=== PATIENT | female | born 1950 | race Two or more races ===

== ENCOUNTER 2018-07-26 05:43 | Inpatient (IN) | payer MEDICARE, MEDICAID ==
[~2018-07-26] VITALS: Ht 167.6 cm; Wt 91.6 kg
[2018-07-26] MEDS ORDERED: [UNRECOGNIZED DRUG - OTHER] (05:49)
[2018-07-26] MEDS ORDERED: BENAZEPRIL HCL5 MG ORAL (05:49)
[2018-07-26] MEDS ORDERED: AKTOB1 DROP BOTH EYES (05:49)
[2018-07-26 06:00] VITALS: BP 155/78
--- NOTE | 2018-07-26 06:00 | NUR ---
ED Nurse Note: Patient biba from home with complaints of abdominal pain, nausea, vomitting and diarrhea for almost a month.
--- NOTE | 2018-07-26 06:16 | Emergency Room Report ---
History of Present Illness General Chief Complaint: Abdominal Pain Source: Patient (Kian Pink MD) Present Illness HPI Patient is a 68-year-old female brought in by EMS after increased generalized weakness. Patient was noted to have increased vomiting as well as diarrhea for several days. Patient states that she started this approximately 3 weeks ago. She is not currently seeing a doctor but takes medications for hypertension. Patient reportedly had increased pain throughout the bilateral upper abdomen as well as some increased dysuria. She had been having episodes of diarrhea and has been feeling weak all over. She reports having some severe low back pain. She additionally reports having pain to the left shoulder and is have been having some increased difficulty with movements. She reports having some prior history of arthritis.Patient reports having generalized body aches. She states she is been able to ambulate with assistance. (Kian Pink MD) Allergies: Coded Allergies: No Known Allergies (Unverified , 07/26/18) Patient History Past Medical History: see triage record Last Menstrual Period: FRANCESCA Now: No Reviewed Nursing Documentation: PMH: Agreed; PSxH: Agreed (Kian Pink MD) Nursing Documentation-PMH Past Medical History: No History, Except For Hx Hypertension: Yes (Kian Pink MD) Review of Systems All Other Systems: negative except mentioned in HPI (Kian Pink MD) Physical Exam Vital Signs Date Time Temp Pulse Resp B/P (MAP) Pulse Ox O2 Delivery O2 Flow Rate FiO2 07/26/18 05:45 98.4 116 26 155/78 93 Room Air Sp02 EP Interpretation: reviewed, normal General Appearance: normal inspection, alert, GCS 15, moderate distress, thin, Chronically Ill Head: atraumatic ENT: normal ENT inspection, hearing grossly normal, normal voice Neck: normal inspection, supple, no bony tend, limited range of motion Respiratory: normal inspection, lungs clear, normal breath sounds, no respiratory distress, no retraction Cardiovascular #1: regular rate, rhythm, no edema Gastrointestinal: normal inspection, normal bowel sounds, non tender, soft, no guarding, no hernia Genitourinary: no CVA tenderness Musculoskeletal: normal inspection, back normal, decreased range of motion Neurologic: normal inspection, alert, oriented x3, responsive, speech normal, motor weakness Psychiatric: normal inspection, judgement/insight normal, mood/affect normal Skin: normal inspection, normal color, no rash (Kian Pink MD) Medical Decision Making Diagnostic Impression: Primary Impression: UTI (urinary tract infection) Additional Impression: Dehydration ER Course Patient presented for abdominal pain. Differential diagnoses included ischemic bowel, appendicitis, perforated viscus, abdominal aortic aneurysm, inferior myocardial infarction, viral gastroenteritis among others. Because of complexity of patient's case laboratory testing and imaging studies were ordered.Patient was noted to have some generalized weakness and appears to have need for CT imaging. Patient was endorsed to Dr. Mcgrath pending laboratory testing and CT imaging and likely will be admitted to the hospital for further evaluation. (Kian Pink MD) ER Course Elderly patient with abdominal pain for 3 weeks, vomiting diarrhea intermittently, labs show white count 17,000, urine shows signs of infection, given IV Zosyn, will admit to Dr. Ann. Ct showed possible GB dz. Will order US, although patient's pain in lower abdominal, not RUQ. (EFRNE MCGRATH M.D) EKG Diagnostic Results EKG Time: 08:47 EP Interpretation: no stemi Rate: normal Rhythm: NSR ST Segments: no acute changes ASA given to the pt in ED: No (EFREN MCGRATH M.D) Rhythm Strip Diag. Results Rhythm Strip Time: 07:14 EP Interpretation: yes Rate: 93 Rhythm: NSR (EFREN MCGRATH M.D) Last Vital Signs Date Time Temp Pulse Resp B/P (MAP) Pulse Ox O2 Delivery O2 Flow Rate FiO2 07/26/18 05:45 98.4 116 26 155/78 93 Room Air Status: unchanged (Kian Pink MD) Disposition: ADMITTED INPATIENT Condition: Stable Referrals: NOT CHOSEN IPA/,REFERRING (PCP) Kian Pink MD Jul 26, 2018 06:16 EFREN MCGRATH M.D Jul 26, 2018 07:14
[2018-07-26 06:39] VITALS: BP 141/79
--- NOTE | 2018-07-26 06:39 | NUR ---
ED Nurse Note: PAtient had recurrent episodes of desaturation, placed on 2L of O2 via nasal canula. ERMD informed.
--- NOTE | 2018-07-26 06:41 | NUR ---
ED Nurse Note: KUN currently at bedside.
[2018-07-26 06:48] LABS: BASOPHILS % (AUTO) 0.5 % (0.0-2.0); EOSINOPHILS % (AUTO) 0.1 % (0.0-3.0); HEMATOCRIT 30.3 % (37.0-47.0); HEMOGLOBIN 10.3 G/DL (12.0-16.0); LYMPHOCYTES % (AUTO) 7.3 % (20.0-45.0); MEAN CORPUSCULAR VOLUME 82 FL (80-99); MONOCYTES % (AUTO) 7.9 % (1.0-10.0); NEUTROPHILS % (AUTO) 84.3 % (45.0-75.0); PLATELET COUNT 544 K/UL (150-450); RED BLOOD COUNT 3.67 M/UL (4.20-5.40); RED CELL DISTRIBUTION WIDTH 12.4 % (11.6-14.8); WHITE BLOOD COUNT 17.4 K/UL (4.8-10.8)
[2018-07-26 06:49] LABS: APPEARANCE,URINE CLEAR; BILIRUBIN, URINE NEGATIVE (NEGATIVE); GLUCOSE, URINE (UA) NEGATIVE (NEGATIVE); KETONES,URINE 1+ (NEGATIVE); LEUKOCYTE ESTERASE ,URINE 1+ (NEGATIVE); NITRITE,URINE NEGATIVE (NEGATIVE); PH,URINE 6 (4.5-8.0); PROTEIN,URINE 2+ (NEGATIVE); UROBILINOGEN,URINE 1 MG/DL (0.0-1.0)
[2018-07-26 06:53] LABS: COLOR,URINE YELLOW
[2018-07-26 07:03] LABS: ANION GAP 10 mmol/L (5-15); BLOOD UREA NITROGEN 12 mg/dL (7-18); CALCIUM 8.2 MG/DL (8.5-10.1); CARBON DIOXIDE 24 MMOL/L (21-32); CHLORIDE 97 MMOL/L (98-107); CREATININE 1.2 MG/DL (0.55-1.30); POTASSIUM 4.8 MMOL/L (3.5-5.1); SODIUM 131 MMOL/L (136-145)
[2018-07-26 07:14] LABS: ALANINE AMINOTRANSFERASE 95 U/L (12-78); ALBUMIN 1.5 G/DL (3.4-5.0); ALBUMIN/GLOBULIN RATIO 0.3 (1.0-2.7); ALKALINE PHOSPHATASE 438 U/L (46-116); ASPARTATE AMINO TRANSFERASE 85 U/L (15-37); BILIRUBIN,TOTAL 1.1 MG/DL (0.2-1.0)
[2018-07-26] MEDS ORDERED: Piperacillin/Tazobactam 3.375 GM in NS 110 ML IVPB ONE (07:15)
[2018-07-26 07:17] LABS: BILIRUBIN,DIRECT 0.5 MG/DL (0.0-0.3)
--- NOTE | 2018-07-26 07:40 | NUR ---
ED Nurse Note: Assisted pt on a bed side commode. Informed pt that we are still waiting for the CT abdomen to be done. VSS.
[2018-07-26 08:40] VITALS: BP 136/62
--- NOTE | 2018-07-26 08:50 | NUR ---
ED Nurse Note: Pt taken to CT.
--- NOTE | 2018-07-26 09:00 | NUR ---
ED Nurse Note: Pt back from CT.
--- NOTE | 2018-07-26 09:15 | Diagnostic Imaging Report ---
Indication: Abdominal pain, vomiting, diarrhea Technique: Spiral acquisitions obtained through the abdomen and pelvis. No oral contrast utilized, per emergency room physician request No IV contrast utilized, per emergency room physician request.. Multiplanar reconstructions were generated. Total dose length product 888.46 mGycm. CTDIvol(s) 17.73 mGy. Dose reduction achieved using automated exposure control Comparison: None Findings: Lack of enteric contrast limits assessment of the GI tract. There are colonic diverticula. The appendix is not visualized, but no findings to suggest acute appendicitis are evident. There is nonspecific mild thickening of Gerota's fascia bilaterally, particularly on the left in the upper retroperitoneum. No small bowel distention. There is trace free intraperitoneal fluid seen in the pelvis. No intraperitoneal gas demonstrated. The stomach, duodenum, and distal esophagus are unremarkable. Lack of IV contrast limits assessment of the solid organs. Multiple faint and somewhat ill-defined masses are seen within the liver. Most of these demonstrate fluid attenuation, but there may be some soft tissue attenuation mass is present as well. The gallbladder is nondistended. The gallbladder wall appears somewhat edematous, however. No definite gallstones. No biliary ductal dilatation. Pancreatic head is bulky without definite discrete mass. There is suggestion of a small duodenal diverticulum.. The spleen demonstrates a 2.9 cm diameter low-attenuation lesion in the upper pole which demonstrates equivocal fluid attenuation. The spleen is mildly enlarged, measuring 13.1 cm long axis dimension. The right adrenal is unremarkable. The left adrenal is bulky without discrete mass. The right kidney is unremarkable. Left kidney demonstrates a 4.6 cm upper pole cyst. No pelvic mass or adenopathy. No retroperitoneal or mesenteric mass or adenopathy. The uterus demonstrates a few small calcifications. No definite adnexal mass. Atelectatic changes are seen at the lung bases. There is trace bilateral pleural fluid. The bones demonstrate degenerative spondylosis changes. Impression: Limited assessment of the GI tract, due to lack of enteric contrast administration. Trace free intraperitoneal fluid in the pelvis. No acute abdominal process otherwise Trace bilateral pleural effusions Nonspecific mild thickening of Gerota's fascia. Multiple faint and ill-defined liver masses, not well demonstrated due to lack of IV contrast administration. These mostly appear to be demonstrate fluid attenuation, but are not well enough demonstrated to state for certain. Further evaluation with contrast CT if not contraindicated and ultrasound recommended Bulky pancreatic head, without definite discrete mass. Likewise, further evaluation with contrast CT would be useful to evaluate for possible underlying mass Gallbladder is nondistended, but this wall appears somewhat edematous. Consider further evaluation with ultrasound if there is clinical suspicion for acute cholecystitis or gallstone disease Mild splenomegaly 2.9 cm nonspecific splenic lesion. Further evaluation with contrast CT and/or ultrasound recommended Colonic diverticulosis. No evidence of diverticulitis Other findings as noted, including basilar pulmonary atelectatic changes, degenerative spondylosis, left renal cyst, uterine calcifications, probable small duodenal diverticulum The CT scanner at [facility] is accredited by the [employer] and the scans are performed using protocols designed to limit radiation exposure to as low as reasonably achievable to attain images of sufficient resolution adequate for diagnostic evaluation.
--- NOTE | 2018-07-26 09:42 | NUR ---
ED Nurse Note: Report given to Thelma CHAVEZ of telemetry unit. He said room is not yet ready and call after a few minutes.
--- NOTE | 2018-07-26 09:53 | NUR ---
ED Nurse Note: U/S tech contacted an informed of pending u/s exam.
--- NOTE | 2018-07-26 10:11 | NUR ---
ED Nurse Note: Pt transferred to telemetry unit via gurney and with belongings. VSS,
[2018-07-26] MEDS ORDERED: Morphine Sulfate 2mg/ml Inj(IV/IM USE ONLY) IVP PRN (10:15)
[2018-07-26] MEDS ORDERED: Miralax 17gm pkt ORAL PRN (10:15)
[2018-07-26] MEDS ORDERED: Albuterol/Ipratropium 3ml neb HHN PRN (10:15)
[2018-07-26 12:00] VITALS: BP 122/63
--- NOTE | 2018-07-26 12:02 | Consultation ---
History of Present Illness General Date patient seen: Jul 26, 2018 Chief Complaint: Abdominal Pain Present Illness HPI 68 y/o F wtih hx of HTN, arthritis presents to ED on 07/26 with increased generalized weakness, vomiting and diarrhea for several days as well as b/l upper abdominal pain and dysuria. Also severe low back pain, Left shoulder pain with increased difficulty with movements. Allergies: Coded Allergies: No Known Allergies (Unverified , 07/26/18) Medication History Scheduled Benazepril Hcl (Benazepril Hcl), Unknown Dose ORAL DAILY, (Reported) Tobramycin Sulf (Tobramycin), 1 DROP BOTH EYES Q4H, (Reported) Miscellaneous Medications [acetohexamide], (Reported) Patient History Healthcare decision maker Resuscitation status Advanced Directive on File Patient History Narrative Pmhx: as above Shx: reviewed Fhx: non contributory Review of Systems All Other Systems: negative except mentioned in HPI Physical Exam Physical Exam Narrative General Appearance: normal inspection, alert, GCS 15, moderate distress, thin, Chronically Ill Head: atraumatic ENT: normal ENT inspection, hearing grossly normal, normal voice Neck: normal inspection, supple, no bony tend, limited range of motion Respiratory: normal inspection, lungs clear, normal breath sounds, no respiratory distress, no retraction Cardiovascular #1: regular rate, rhythm, no edema Gastrointestinal: normal inspection, normal bowel sounds, non tender, soft, no guarding, no hernia Genitourinary: no CVA tenderness Musculoskeletal: normal inspection, back normal, decreased range of motion Neurologic: normal inspection, alert, responsive, speech normal Psychiatric: normal inspection, judgement/insight normal, mood/affect normal Skin: normal inspection, normal color, no rash Last 24 Hour Vital Signs Date Time Temp Pulse Resp B/P (MAP) Pulse Ox O2 Delivery O2 Flow Rate FiO2 07/26/18 10:11 98.4 90 25 138/70 98 Nasal Cannula 2.0 07/26/18 08:40 98.5 93 27 136/62 100 Nasal Cannula 2.0 07/26/18 06:39 98.4 94 37 141/79 100 Nasal Cannula 2.0 07/26/18 06:00 116 39 Room Air 2.0 07/26/18 06:00 98.4 94 30 155/78 97 Nasal Cannula 2.0 07/26/18 05:45 98.4 116 26 155/78 93 Room Air Intake and Output 07/25/18 07/26/18 19:00 07:00 Intake Total 1000 ml Balance 1000 ml Intake Oral 0 ml IV Total 1000 ml Laboratory Tests Test 07/26/18 06:00 White Blood Count 17.4 K/UL (4.8-10.8) H Red Blood Count 3.67 M/UL (4.20-5.40) L Hemoglobin 10.3 G/DL (12.0-16.0) L Hematocrit 30.3 % (37.0-47.0) L Mean Corpuscular Volume 82 FL (80-99) Mean Corpuscular Hemoglobin 28.1 PG (27.0-31.0) Mean Corpuscular Hemoglobin Concent 34.1 G/DL (32.0-36.0) Red Cell Distribution Width 12.4 % (11.6-14.8) Platelet Count 544 K/UL (150-450) H Mean Platelet Volume 5.9 FL (6.5-10.1) L Neutrophils (%) (Auto) 84.3 % (45.0-75.0) H Lymphocytes (%) (Auto) 7.3 % (20.0-45.0) L Monocytes (%) (Auto) 7.9 % (1.0-10.0) Eosinophils (%) (Auto) 0.1 % (0.0-3.0) Basophils (%) (Auto) 0.5 % (0.0-2.0) Urine Color Yellow Urine Appearance Clear Urine pH 6 (4.5-8.0) Urine Specific [place] 1.005 (1.005-1.035) Urine Protein 2+ (NEGATIVE) H Urine Glucose (UA) Negative (NEGATIVE) Urine Ketones 1+ (NEGATIVE) H Urine Blood 1+ (NEGATIVE) H Urine Nitrite Negative (NEGATIVE) Urine Bilirubin Negative (NEGATIVE) Urine Urobilinogen 1 MG/DL (0.0-1.0) H Urine Leukocyte Esterase 1+ (NEGATIVE) H Urine RBC 0-2 /HPF (0 - 2) Urine WBC 0-2 /HPF (0 - 2) Urine Squamous Epithelial Cells Few /LPF (NONE/OCC) Urine Bacteria Few /HPF (NONE) Sodium Level 131 MMOL/L (136-145) L Potassium Level 4.8 MMOL/L (3.5-5.1) Chloride Level 97 MMOL/L (98-107) L Carbon Dioxide Level 24 MMOL/L (21-32) Anion Gap 10 mmol/L (5-15) Blood Urea Nitrogen 12 mg/dL (7-18) Creatinine 1.2 MG/DL (0.55-1.30) Estimat Glomerular Filtration Rate 44.4 mL/min (>60) Glucose Level 101 MG/DL (74-106) Calcium Level 8.2 MG/DL (8.5-10.1) L Total Bilirubin 1.1 MG/DL (0.2-1.0) H Direct Bilirubin 0.5 MG/DL (0.0-0.3) H Aspartate Amino Transf (AST/SGOT) 85 U/L (15-37) H Alanine Aminotransferase (ALT/SGPT) 95 U/L (12-78) H Alkaline Phosphatase 438 U/L (46-116) H Total Protein 6.8 G/DL (6.4-8.2) Albumin 1.5 G/DL (3.4-5.0) L Globulin 5.3 g/dL Albumin/Globulin Ratio 0.3 (1.0-2.7) L Lipase 108 U/L (73-393) Height (Feet): 5 Height (Inches): 6.00 Weight (Pounds): 180 Medications Current Medications Medications (Trade) Dose Ordered Sig/Jose Route PRN Reason Start Time Stop Time Status Last Admin Dose Admin Acetaminophen (Tylenol) 650 mg Q4H PRN ORAL fever 07/26/18 10:16 08/25/18 10:15 Albuterol/ Ipratropium (Albuterol/ Ipratropium) 3 ml Q4H PRN HHN Shortness of Breath 07/26/18 10:15 07/31/18 10:14 Cefepime HCl 2 gm/ Dextrose 110 ml @ 220 mls/hr Q24H IV 07/26/18 12:00 08/02/18 11:59 Heparin Sodium (Porcine) (Heparin 5000 units/ml) 5,000 units EVERY 12 HOURS SUBQ 07/26/18 21:00 08/25/18 20:59 Morphine Sulfate (Morphine Sulfate) 2 mg Q4H PRN IVP Moderate Pain (Pain Scale 4-6) 07/26/18 10:15 08/02/18 10:14 Ondansetron HCl (Zofran) 4 mg Q6H PRN IVP Nausea & Vomiting 07/26/18 10:15 08/25/18 10:14 Phenazopyridine HCl (Pyridium) 100 mg DAILYPRN PRN ORAL dysuria 07/26/18 10:15 08/25/18 10:14 Polyethylene Glycol (Miralax) 17 gm DAILYPRN PRN ORAL Constipation 07/26/18 10:15 08/25/18 10:14 Temazepam (Restoril) 15 mg HSPRN PRN ORAL Insomnia 07/26/18 10:15 08/02/18 10:14 Vancomycin HCl (Vanco rx to dose) 1 ea DAILY PRN MISC PER PHARMACY 07/26/18 10:30 08/25/18 10:29 Vancomycin HCl 750 mg/Sodium Chloride 275 ml @ 183.333 mls/hr Q12HR@0400,1600 IVPB 07/26/18 16:00 07/31/18 15:59 Assessment/Plan Assessment/Plan: Abx: IV Vancomycin 07/26- Cefepime 07/26- Zosyn x1 07/26 Assessment: Sepsis- likely from intraabdominal source vs hepatobiliary source- ?acute cholecystitis -CT abd/p wo: Limited assessment of the GI tract, due to lack of enteric contrast administration. Trace free intraperitoneal fluid in the pelvis. No acute abdominal process otherwise Trace bilateral pleural effusions. Nonspecific mild thickening of Gerota's fascia. Multiple faint and ill-defined liver masses, not well demonstrated due to lack of IV contrast administration. These mostly appear to be demonstrate fluid attenuation, but are not well enough demonstrated to state for certain. Further evaluation with contrast CT if not contraindicated and ultrasound recommended Bulky pancreatic head, without definite discrete mass. Likewise, further evaluation with contrast CT would be useful to evaluate for possible underlying mass. Gallbladder is nondistended, but this wall appears somewhat edematous. Consider further evaluation with ultrasound if there is clinical suspicion for acute cholecystitis or gallstone disease -u/a wbc 0-2, nit neg, leuk +1 Low grade fever Leukocytosis Elevated LFTs HTN arthritis Plan: -D/c empiric IV Vancomycin #1 -Continue empiric Cefepime #1 and add Flagyl -CXR -f/u abd US -f/u cx -Monitor CBC/CMP, temperatures -hep panel am -aspiration precautions Thank you for this consultation. Will continue to follow along with you. Discussed with SCOTT. Ebonie Milan M.D. Jul 26, 2018 12:02
--- NOTE | 2018-07-26 12:08 | NUR ---
CASE MANAGEMENT:REVIEW 68 YR OLD MALE BIBA FROM HOME CC; BACK AND ABDOMINAL PAIN. N/V/D. BURNING SENSATION WITH URINATION SI: DEHYDRATION. UTI 98.4 116 26 155/78 93% ON RA WBC+17.4 IS: PLACED ON 2L/NC IV ZOFRAN IV ZOSYN 1L NS BOLUS : TO TELEMETRY UNIT INTERQUAL CRITERIA MET
--- NOTE | 2018-07-26 12:15 | Consultation ---
History of Present Illness General Date patient seen: Jul 26, 2018 Chief Complaint: Abdominal Pain Present Illness HPI 68-year-old female with hx of HTN, ? CVA/TIA, arthritis brought in by EMS with CC of generalized weakness, vomiting as well as diarrhea for several days. Patient reportedly had increased pain throughout the bilateral upper abdomen as well as some increased dysuria. She had been having episodes of diarrhea and has been feeling weak all over. She reports having some severe low back pain. She had leukocytosis and admitted to telemetry for possible sepsis. Allergies: Coded Allergies: No Known Allergies (Unverified , 07/26/18) Medication History Scheduled Benazepril Hcl (Benazepril Hcl), Unknown Dose ORAL DAILY, (Reported) Tobramycin Sulf (Tobramycin), 1 DROP BOTH EYES Q4H, (Reported) Miscellaneous Medications [acetohexamide], (Reported) Patient History Healthcare decision maker Resuscitation status Full Code Advanced Directive on File Past Medical/Surgical History Past Medical/Surgical History: (1) History of hypertension Review of Systems All Other Systems: negative except mentioned in HPI Physical Exam General Appearance: WD/WN Lines, tubes and drains: peripheral HEENT: normocephalic, atraumatic Neck: non-tender, normal alignment Respiratory/Chest: lungs clear, normal breath sounds Breasts: no masses Cardiovascular/Chest: normal peripheral pulses, normal rate Abdomen: normal bowel sounds Genitourinary/Rectal: normal genital exam Extremities: normal range of motion Skin Exam: normal pigmentation 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 Last 24 Hour Vital Signs Date Time Temp Pulse Resp B/P (MAP) Pulse Ox O2 Delivery O2 Flow Rate FiO2 07/26/18 12:01 Nasal Cannula 2.0 07/26/18 10:11 98.4 90 25 138/70 98 Nasal Cannula 2.0 07/26/18 08:40 98.5 93 27 136/62 100 Nasal Cannula 2.0 07/26/18 06:39 98.4 94 37 141/79 100 Nasal Cannula 2.0 07/26/18 06:00 116 39 Room Air 2.0 07/26/18 06:00 98.4 94 30 155/78 97 Nasal Cannula 2.0 07/26/18 05:45 98.4 116 26 155/78 93 Room Air Intake and Output 07/25/18 07/26/18 19:00 07:00 Intake Total 1000 ml Balance 1000 ml Intake Oral 0 ml IV Total 1000 ml Laboratory Tests Test 07/26/18 06:00 White Blood Count 17.4 K/UL (4.8-10.8) H Red Blood Count 3.67 M/UL (4.20-5.40) L Hemoglobin 10.3 G/DL (12.0-16.0) L Hematocrit 30.3 % (37.0-47.0) L Mean Corpuscular Volume 82 FL (80-99) Mean Corpuscular Hemoglobin 28.1 PG (27.0-31.0) Mean Corpuscular Hemoglobin Concent 34.1 G/DL (32.0-36.0) Red Cell Distribution Width 12.4 % (11.6-14.8) Platelet Count 544 K/UL (150-450) H Mean Platelet Volume 5.9 FL (6.5-10.1) L Neutrophils (%) (Auto) 84.3 % (45.0-75.0) H Lymphocytes (%) (Auto) 7.3 % (20.0-45.0) L Monocytes (%) (Auto) 7.9 % (1.0-10.0) Eosinophils (%) (Auto) 0.1 % (0.0-3.0) Basophils (%) (Auto) 0.5 % (0.0-2.0) Urine Color Yellow Urine Appearance Clear Urine pH 6 (4.5-8.0) Urine Specific [place] 1.005 (1.005-1.035) Urine Protein 2+ (NEGATIVE) H Urine Glucose (UA) Negative (NEGATIVE) Urine Ketones 1+ (NEGATIVE) H Urine Blood 1+ (NEGATIVE) H Urine Nitrite Negative (NEGATIVE) Urine Bilirubin Negative (NEGATIVE) Urine Urobilinogen 1 MG/DL (0.0-1.0) H Urine Leukocyte Esterase 1+ (NEGATIVE) H Urine RBC 0-2 /HPF (0 - 2) Urine WBC 0-2 /HPF (0 - 2) Urine Squamous Epithelial Cells Few /LPF (NONE/OCC) Urine Bacteria Few /HPF (NONE) Sodium Level 131 MMOL/L (136-145) L Potassium Level 4.8 MMOL/L (3.5-5.1) Chloride Level 97 MMOL/L (98-107) L Carbon Dioxide Level 24 MMOL/L (21-32) Anion Gap 10 mmol/L (5-15) Blood Urea Nitrogen 12 mg/dL (7-18) Creatinine 1.2 MG/DL (0.55-1.30) Estimat Glomerular Filtration Rate 44.4 mL/min (>60) Glucose Level 101 MG/DL (74-106) Calcium Level 8.2 MG/DL (8.5-10.1) L Total Bilirubin 1.1 MG/DL (0.2-1.0) H Direct Bilirubin 0.5 MG/DL (0.0-0.3) H Aspartate Amino Transf (AST/SGOT) 85 U/L (15-37) H Alanine Aminotransferase (ALT/SGPT) 95 U/L (12-78) H Alkaline Phosphatase 438 U/L (46-116) H Total Protein 6.8 G/DL (6.4-8.2) Albumin 1.5 G/DL (3.4-5.0) L Globulin 5.3 g/dL Albumin/Globulin Ratio 0.3 (1.0-2.7) L Lipase 108 U/L (73-393) Height (Feet): 5 Height (Inches): 6.00 Weight (Pounds): 180 Medications Current Medications Medications (Trade) Dose Ordered Sig/Jose Route PRN Reason Start Time Stop Time Status Last Admin Dose Admin Acetaminophen (Tylenol) 650 mg Q4H PRN ORAL fever 07/26/18 10:16 08/25/18 10:15 Albuterol/ Ipratropium (Albuterol/ Ipratropium) 3 ml Q4H PRN HHN Shortness of Breath 07/26/18 10:15 07/31/18 10:14 Cefepime HCl 2 gm/ Dextrose 110 ml @ 220 mls/hr Q24H IV 07/26/18 12:00 08/02/18 11:59 Heparin Sodium (Porcine) (Heparin 5000 units/ml) 5,000 units EVERY 12 HOURS SUBQ 07/26/18 21:00 08/25/18 20:59 Morphine Sulfate (Morphine Sulfate) 2 mg Q4H PRN IVP Moderate Pain (Pain Scale 4-6) 07/26/18 10:15 08/02/18 10:14 Ondansetron HCl (Zofran) 4 mg Q6H PRN IVP Nausea & Vomiting 4/25/19 10:15 08/25/18 10:14 Phenazopyridine HCl (Pyridium) 100 mg DAILYPRN PRN ORAL dysuria 07/26/18 10:15 08/25/18 10:14 Polyethylene Glycol (Miralax) 17 gm DAILYPRN PRN ORAL Constipation 07/26/18 10:15 08/25/18 10:14 Temazepam (Restoril) 15 mg HSPRN PRN ORAL Insomnia 07/26/18 10:15 08/02/18 10:14 Assessment/Plan Problem List: (1) Intractable nausea and vomiting ICD Codes: R11.2 - Nausea with vomiting, unspecified SNOMED: 409365429 (2) Sepsis ICD Codes: A41.9 - Sepsis, unspecified organism SNOMED: 31927284 (3) Anemia ICD Codes: D64.9 - Anemia, unspecified SNOMED: 970709521 (4) History of hypertension ICD Codes: Z86.79 - Personal history of other diseases of the circulatory system SNOMED: 595633266 (5) UTI (urinary tract infection) ICD Codes: N39.0 - Urinary tract infection, site not specified SNOMED: 96542777 Diagnosis [place] I: NPO iv fluids IV abx GI evaluation check electrolytes dvt prophylaxis Kirsten Leonard MD Jul 26, 2018 12:15
[2018-07-26] MEDS: Cefepime HCl 2 GM in D5W 110 ML IV SCH (12:23)
[2018-07-26] MEDS ORDERED: Isovue-300 100ml vial INJ PRN (12:30)
--- NOTE | 2018-07-26 14:54 | NUR ---
RADIOLOGY DEPT., CHEST X-RAY DONE.-P.DYE
[2018-07-26 16:00] VITALS: BP 116/66
[2018-07-26] MEDS ORDERED: Vancomycin 750mg/NS 275ml IVPB SCH ×2 (16:00)
[2018-07-26] MEDS ORDERED: Nulytely 4L ORAL SCH (16:00)
[2018-07-26] MEDS: D5 1/2NS w/KCl 20mEq 1,000 ML IV SCH (16:32)
--- NOTE | 2018-07-26 17:10 | NUR ---
Jacques called transporter to bring the pt down to CT.
--- NOTE | 2018-07-26 17:12 | Diagnostic Imaging Report ---
Indication: Cough Technique: One view of the chest Comparison: none Findings: There is some atelectasis the retrocardiac region. Lungs and pleural spaces are otherwise clear. Heart size is normal. There are degenerative changes of the thoracic spine Impression: Retrocardiac atelectasis. No acute process otherwise
--- NOTE | 2018-07-26 17:45 | Consultation ---
DATE OF CONSULTATION: 07/26/2018 GASTROENTEROLOGY CONSULTATION CHIEF COMPLAINT: Nausea, vomiting, and abdominal pain. HISTORY OF PRESENT ILLNESS: The patient is a 68-year-old female with past medical history of hypertension. According to her, she is not seeing too many doctors. She was seen by a certified phlebotomist august in April and was given blood pressure medication because she was getting clearance for eye surgery, but presented to the hospital with a complaint of 3 to 4 days of nausea, vomiting, abdominal pain, and weight loss. Since admission, the patient was found to be anemic with hemoglobin around 10. The patient is also found to have evidence of a prominent pancreatic head on the CT and abnormal liver function tests. So, GI consult is requested for further evaluation. According to the patient, she has also been having some diarrhea nonbloody. No prior history of endoscopy and no colonoscopy. No dysphagia. No odynophagia. No melena or hematochezia. PAST MEDICAL HISTORY: Hypertension. PAST SURGICAL HISTORY: Breast cyst many years ago. MEDICATIONS: Please see medication reconciliation list. ALLERGIES: No known drug allergies. SOCIAL HISTORY: The patient denies any tobacco, alcohol, or drug abuse. FAMILY HISTORY: Noncontributory. No family history of GI malignancies. REVIEW OF SYSTEMS: A 10-point review of systems was performed and pertinent positives in HPI. PHYSICAL EXAMINATION: VITAL SIGNS: Temperature 98.4, pulse 90, respirations 25, and blood pressure is 138/70. HEENT: Normocephalic and atraumatic. Mild pale conjunctivae. NECK: Supple. No evidence of lymphadenopathy. CARDIOVASCULAR: Regular rate and rhythm. Plus S1 and S2. No obvious murmur. LUNGS: Clear to auscultation bilaterally. ABDOMEN: Positive bowel sounds. Soft. Minimal tenderness to palpation in the epigastric area. No rebound. No guarding. No peritoneal sign. EXTREMITIES: No cyanosis, no clubbing, no edema. NEUROLOGIC: Nonfocal. LABORATORY DATA: Labs show white count of 17.4, hemoglobin 10, hematocrit 30, and platelet count is 544,000. Sodium 131, potassium 4.8, BUN is 12, and creatinine 1.2. Total bilirubin is 1.1. AST of 85, ALT of 95, and alkaline phosphatase of 438. Albumin is 1.5. Lipase is 108. IMAGING STUDIES: CT of the abdomen and pelvis without contrast showed fullness of the head of the pancreas, mild splenomegaly, gallbladder is nondistended, but the wall somewhat appears to be edematous, colonic diverticulosis, and a 2.9 cm nonspecific splenic lesion. ASSESSMENT AND PLAN: This is a 68-year-old female with following problem list. 1. Nausea, vomiting, abdominal pain, and diarrhea. 2. Abnormal liver function tests. 3. Normocytic anemia. 4. Hypertension. 5. Diverticulosis. 6. Fullness of the pancreatic head. PLAN: 1. Abdominal ultrasound. 2. Repeat CT with contrast with pancreatic protocol. 3. Tumor markers including CA-19-9 and CEA. 4. Repeat liver function tests and CBC for tomorrow. 5. Given no prior history of endoscopy and colonoscopy with normal creatinine function and weight loss, the patient would need an endoscopy and colonoscopy, which she agreed. We will plan for tomorrow. We will make further recommendation after above results are obtained. I want to thank, Dr. Leonard, for this kind referral. Sixto Conner M.D. DR: JANET JOB#: [id number] CC: Kirsten Leonard M.D.; Fax#: [phone]
--- NOTE | 2018-07-26 19:48 | NUR ---
HAND-OFF: Report given to Felicia CHAVEZ.
--- NOTE | 2018-07-26 19:50 | NUR ---
NURSE NOTES: Received pt from SCOTT Renee. Pt awake, alert, and c/o pain. Pt understands procedure to be done in the morning. Bed in lowest position. Call light within reach. Will continue to monitor.
[2018-07-26 20:00] VITALS: BP 128/60
[2018-07-26] MEDS: Heparin 5000 units/ml inj SUBQ SCH (21:00)
--- NOTE | 2018-07-26 23:00 | History and Physical Report ---
DATE OF ADMISSION: 07/26/2018 CHIEF COMPLAINT: The patient is a 68-year-old female, who presents with a chief complaint of nausea, vomiting, diarrhea, and abdominal pain. HISTORY OF PRESENT ILLNESS: Began on July 03, 2018. The patient began to experience nausea. The patient did have some vomiting. The patient also began to experience diarrhea. The patient was having bilateral upper quadrant abdominal pain. This is now centered for the left side. The patient also has generalized weakness. The patient had subjective fevers and chills. The patient states she did not go to her physician earlier as "I have Medicare and I normally got to urgent care." The patient presented to [facility] emergency room. The patient was admitted for abdominal pain and fever to rule out pyelonephritis. REVIEW OF SYSTEMS: CONSTITUTIONAL: The patient denies weight loss or weight gain. The patient does complain of subjective fevers and chills. HEENT: The patient denies ear or throat pain. The patient denies headache. CARDIOVASCULAR: The patient denies palpitations or chest pain. CHEST: The patient denies wheeze or shortness of breath. ABDOMINAL: The patient complains of left upper quadrant pain. The patient complains of nausea and vomiting. The patient complains of diarrhea, which is stated to be "loose." The patient denies constipation. GENITOURINARY: The patient denies dysuria or increased frequency of urination. NEUROMUSCULAR: The patient denies seizures or generalized weakness. PAST MEDICAL HISTORY: Significant for hypertension. PAST SURGICAL HISTORY: The patient denies. CURRENT MEDICATIONS: Benazepril 5 mg p.o. daily. ALLERGIES: No known drug allergies. SOCIAL HISTORY: The patient is single and lives alone. The patient denies tobacco use. The patient admits to occasional alcohol use. PHYSICAL EXAMINATION: VITAL SIGNS: Temperature 98.4, respirations 26, pulse 116, and blood pressure 155/70. GENERAL: The patient is well-developed and well-nourished female, in no apparent distress. HEENT: Eyes, pupils are equal and responsive to light and accommodation. Extraocular movements are intact. NECK: Supple without lymphadenopathy. CHEST: Lungs are clear to auscultation bilaterally without wheezes or rales. CARDIOVASCULAR: Tachycardic. Regular rate and rhythm. S1 and S2 are normal without murmurs, rubs, or gallops. ABDOMEN: Soft. Tender to palpation in the left upper quadrant. Positive bowel sounds. No evidence of hepatosplenomegaly. Currently, no rebound or guarding noted. EXTREMITIES: Negative for clubbing, cyanosis, or edema. RECTAL/GENITAL: Refused. NEUROLOGIC: Cranial nerves II through XII are grossly intact without focal deficits. Motor strength is 5/5 bilaterally. Deep tendon reflexes are 2+ plantar. LABORATORY STUDIES: WBC 17.4 hemoglobin 10.3, hematocrit 30.3, and platelets 544,000. Sodium 131, potassium 4.8, chloride 97, CO2 24, BUN 12, creatinine 1.2, and glucose 101. Liver function tests were elevated with a total bilirubin of 1.1, direct bilirubin of 0.5, AST of 85, ALT of 95, and alkaline phosphatase of 438. A CT scan of the abdomen and pelvis without contrast demonstrated multiple liver masses and bulky pancreatic head. Urinalysis showed 1+ blood and 1+ leukocyte esterase with 0 to 2 wbc's. ASSESSMENT: This is a 68-year-old female. 1. Nausea with vomiting. 2. Diarrhea. 3. Abdominal pain. 4. Generalized weakness. 5. Fever. 6. Liver masses. 7. Elevated liver function tests. 8. Hypertension. 9. Leukocytosis. TREATMENT: 1. Nausea/vomiting/diarrhea/abdominal pain. A Gastroenterology consultation has been obtained with Dr. Sixto Conner. We will follow recommendations of Gastroenterology. 2. Liver masses. These were ill-defined on the CT scan and Gastroenterology consultation has been obtained with Dr. Sixto Conner. A CT scan of the abdomen with contrast is pending. 3. Hypertension. The patient is currently hypotensive. 4. Leukocytosis/fever. An Infectious Disease consultation has been obtained with Dr. Milan. The patient has been placed empirically on intravenous Zosyn, Flagyl, and cefepime. Tobias Mauricio M.D. DR: RIA JOB#: [id number] CC:
[2018-07-27] VITALS (11 sets, daily range): BP systolic 98–129; BP diastolic 40–72
[2018-07-27] MEDS ORDERED: Vancomycin 1 GM in D5W 275 ML IV SCH (00:30)
[2018-07-27] MEDS: D5 1/2NS w/KCl 20mEq 1,000 ML IV SCH (05:20)
[2018-07-27 07:08] LABS: HEMATOCRIT 26.9 % (37.0-47.0); MEAN CORPUSCULAR VOLUME 84 FL (80-99); PLATELET COUNT 469 K/UL (150-450); RED BLOOD COUNT 3.22 M/UL (4.20-5.40); RED CELL DISTRIBUTION WIDTH 12.4 % (11.6-14.8); WHITE BLOOD COUNT 17.9 K/UL (4.8-10.8)
[2018-07-27 07:32] LABS: ALANINE AMINOTRANSFERASE 96 U/L (12-78); ALBUMIN 1.3 G/DL (3.4-5.0); ALBUMIN/GLOBULIN RATIO 0.3 (1.0-2.7); ALKALINE PHOSPHATASE 391 U/L (46-116); ANION GAP 9 mmol/L (5-15); ASPARTATE AMINO TRANSFERASE 92 U/L (15-37); BILIRUBIN,TOTAL 0.9 MG/DL (0.2-1.0); BLOOD UREA NITROGEN 10 mg/dL (7-18); CALCIUM 8.1 MG/DL (8.5-10.1); CARBON DIOXIDE 23 MMOL/L (21-32); CHLORIDE 101 MMOL/L (98-107); CREATININE 1.1 MG/DL (0.55-1.30); POTASSIUM 4.6 MMOL/L (3.5-5.1); SODIUM 133 MMOL/L (136-145)
--- NOTE | 2018-07-27 07:37 | NUR ---
HAND-OFF: Report given to SCOTT Renee. Pt stable.
--- NOTE | 2018-07-27 07:38 | NUR ---
NURSE NOTES: Received report from SCOTT Duarte. Informed that the patient is scheduled for EGD and colonoscopy today. The patient denies acute distress shortness of breath. The patient's bed is in the lowest position, call light in reach, and fall precaution reinforced. Will continue plan of care.
[2018-07-27 07:41] LABS: % IRON SATURATION 13 % (15-50); IRON 12 ug/dL (50-175); TOTAL IRON BINDING CAPACITY 94 ug/dL (250-450)
--- NOTE | 2018-07-27 08:35 | General Progress Note ---
Assessment/Plan Problem List: (1) Iron deficiency anemia ICD Codes: D50.9 - Iron deficiency anemia, unspecified SNOMED: 94997310 (2) Diarrhea ICD Codes: R19.7 - Diarrhea, unspecified SNOMED: 18787256 (3) Diverticulosis ICD Codes: K57.90 - Diverticulosis of intestine, part unspecified, without perforation or abscess without bleeding SNOMED: 828817385 (4) Abdominal pain ICD Codes: R10.9 - Unspecified abdominal pain SNOMED: 49690707 (5) Anemia ICD Codes: D64.9 - Anemia, unspecified SNOMED: 349335807 Assessment/Plan: fu repeat CT wih contrast fu stool studies fu tumor markers EGD and cln for today Subjective ROS Limited/Unobtainable: Yes Allergies: Coded Allergies: No Known Allergies (Unverified , 07/26/18) Objective Last 24 Hour Vital Signs Date Time Temp Pulse Resp B/P (MAP) Pulse Ox O2 Delivery O2 Flow Rate FiO2 07/27/18 08:00 98.2 89 18 118/57 (77) 98 07/27/18 07:41 91 18 Nasal Cannula 2.0 28 07/27/18 07:41 98 Nasal Cannula 2.0 28 07/27/18 07:41 Nasal Cannula 2.0 28 07/27/18 04:00 90 07/27/18 04:00 98.5 83 24 109/60 (76) 95 07/27/18 00:00 96 07/27/18 00:00 98.0 95 24 120/64 (82) 97 07/26/18 22:05 89 18 Nasal Cannula 2.0 28 07/26/18 22:05 Nasal Cannula 2.0 28 07/26/18 22:05 97 Nasal Cannula 2.0 28 07/26/18 21:00 Nasal Cannula 2.0 07/26/18 20:00 79 07/26/18 20:00 98.2 95 24 128/60 (82) 97 07/26/18 16:00 85 07/26/18 16:00 98.8 95 26 116/66 (83) 95 07/26/18 12:52 99.9 07/26/18 12:01 Nasal Cannula 2.0 07/26/18 12:00 96 07/26/18 12:00 100.4 97 24 122/63 (82) 95 07/26/18 10:11 98.4 90 25 138/70 98 Nasal Cannula 2.0 07/26/18 08:40 98.5 93 27 136/62 100 Nasal Cannula 2.0 Intake and Output 07/26/18 07/27/18 19:00 07:00 Intake Total 1000 ml Balance 1000 ml Intake Oral 0 ml IV Total 1000 ml # Voids 4 # Bowel Movements 8 Laboratory Tests 07/27/18 06:00: White Blood Count 17.9H, Red Blood Count 3.22L, Hemoglobin 9.0L, Hematocrit 26.9L, Mean Corpuscular Volume 84, Mean Corpuscular Hemoglobin 28.0, Mean Corpuscular Hemoglobin Concent 33.5, Red Cell Distribution Width 12.4, Platelet Count 469H, Mean Platelet Volume 5.9L, Neutrophils (%) (Auto) , Lymphocytes (%) (Auto) , Monocytes (%) (Auto) , Eosinophils (%) (Auto) , Basophils (%) (Auto) , Neutrophils % (Manual) [Pending], Lymphocytes % (Manual) [Pending], Platelet Estimate [Pending], Platelet Morphology [Pending], Sodium Level 133L, Potassium Level 4.6, Chloride Level 101, Carbon Dioxide Level 23, Anion Gap 9, Blood Urea Nitrogen 10, Creatinine 1.1, Estimat Glomerular Filtration Rate 49.1, Glucose Level 99, Calcium Level 8.1L, Iron Level 12L, Total Iron Binding Capacity 94L, Percent Iron Saturation 13L, Unsaturated Iron Binding 82L, Total Bilirubin 0.9, Aspartate Amino Transf (AST/SGOT) 92H, Alanine Aminotransferase (ALT/SGPT) 96H, Alkaline Phosphatase 391H, Total Protein 6.2L, Albumin 1.3L, Globulin 4.9, Albumin/Globulin Ratio 0.3L, Carcinoembryonic Antigen [Pending], CA 19-9 Antigen [Pending], Vitamin B12 Level > 2000H, Folate 14.8, Free Thyroxine 1.36, Hepatitis A IgM Antibody [Pending], Hepatitis B Surface Antigen [Pending], Hepatitis B Core IgM Antibody [Pending], Hepatitis C Antibody [Pending] Height (Feet): 5 Height (Inches): 6.00 Weight (Pounds): 180 General Appearance: alert EENT: normal ENT inspection Neck: supple Cardiovascular: normal rate Respiratory/Chest: decreased breath sounds Abdomen: normal bowel sounds, non tender, soft Extremities: non-tender Sixto Conner MD Jul 27, 2018 08:35
[2018-07-27] MEDS: Heparin 5000 units/ml inj SUBQ SCH ×2 (08:42→21:08)
[2018-07-27] MEDS ORDERED: Fleet's Enema 133ml RECTAL ONE (08:45)
--- NOTE | 2018-07-27 09:04 | Anethesia Preoperative Eval ---
Anesthesia Pre-op PMH/ROS General Date of Evaluation: Jul 27, 2018 Time of Evaluation: 09:03 Anesthesiologist: Toya ASA Score: ASA 3 Mallampati Score Class I : Soft palate, uvula, fauces, pillars visible Class II: Soft palate, uvula, fauces visible Class III: Soft palate, base of uvula visible Class IV: Only hard plate visible Mallampati Classification: Class II Surgeon: Ubaldo Diagnosis: Anemia Surgical Procedure: EGD Colonoscopy Anesthesia History: none Family History: no anesthesia problems Allergies: Coded Allergies: No Known Allergies (Unverified , 07/26/18) Medications: see eMAR Patient NPO?: Yes Past Medical History Cardiovascular: Reports: HTN; Denies: CAD, GA, valve dz, arrhythmia, other Pulmonary: Denies: asthma, COPD, ROEL, other Gastrointestinal/Genitourinary: Reports: GERD; Denies: CRI, ESRD, other Neurologic/Psychiatric: Reports: depression/anxiety; Denies: dementia, CVA, TIA, other Endocrine: Reports: hypothyroidism; Denies: DM, steroids, other HEENT: Reports: cataract (L), cataract (R), glaucoma - R eye Hematology/Immune: Reports: anemia; Denies: DVT, bleeding disorder, other Musculoskeletal/Integumentary: Denies: OA, RA, DJD, DDD, edema, other Other: other - overweight, recent weight loss PMH Narrative: as above PSxH Narrative: see H&P Anesthesia Pre-op Phys. Exam Physician Exam Last Vital Signs Date Time Temp Pulse Resp B/P (MAP) Pulse Ox O2 Delivery O2 Flow Rate FiO2 07/27/18 08:00 98.2 89 18 118/57 (77) 98 07/27/18 07:41 Nasal Cannula 2.0 28 Constitutional: NAD Neurologic: CN 2-12 intact Cardiovascular: RRR, no M/R/G Respiratory: CTA Gastrointestinal: S/NT/ND Airway Exam Mallampati Score: Class II MO: limited Neck: stiff Teeth: missing Dentures: no upper, no lower Anesthesia Pre-op A/P Labs Hematology Test 07/27/18 06:00 White Blood Count 17.9 K/UL (4.8-10.8) H Red Blood Count 3.22 M/UL (4.20-5.40) L Hemoglobin 9.0 G/DL (12.0-16.0) L Hematocrit 26.9 % (37.0-47.0) L Mean Corpuscular Volume 84 FL (80-99) Mean Corpuscular Hemoglobin 28.0 PG (27.0-31.0) Mean Corpuscular Hemoglobin Concent 33.5 G/DL (32.0-36.0) Red Cell Distribution Width 12.4 % (11.6-14.8) Platelet Count 469 K/UL (150-450) H Mean Platelet Volume 5.9 FL (6.5-10.1) L Neutrophils (%) (Auto) % (45.0-75.0) Lymphocytes (%) (Auto) % (20.0-45.0) Monocytes (%) (Auto) % (1.0-10.0) Eosinophils (%) (Auto) % (0.0-3.0) Basophils (%) (Auto) % (0.0-2.0) Neutrophils % (Manual) Pending Lymphocytes % (Manual) Pending Platelet Estimate Pending Platelet Morphology Pending Chemistry Test 07/27/18 06:00 Sodium Level 133 MMOL/L (136-145) L Potassium Level 4.6 MMOL/L (3.5-5.1) Chloride Level 101 MMOL/L (98-107) Carbon Dioxide Level 23 MMOL/L (21-32) Anion Gap 9 mmol/L (5-15) Blood Urea Nitrogen 10 mg/dL (7-18) Creatinine 1.1 MG/DL (0.55-1.30) Estimat Glomerular Filtration Rate 49.1 mL/min (>60) Glucose Level 99 MG/DL (74-106) Calcium Level 8.1 MG/DL (8.5-10.1) L Iron Level 12 ug/dL (50-175) L Total Iron Binding Capacity 94 ug/dL (250-450) L Percent Iron Saturation 13 % (15-50) L Unsaturated Iron Binding 82 ug/dL (112-346) L Total Bilirubin 0.9 MG/DL (0.2-1.0) Aspartate Amino Transf (AST/SGOT) 92 U/L (15-37) H Alanine Aminotransferase (ALT/SGPT) 96 U/L (12-78) H Alkaline Phosphatase 391 U/L (46-116) H Total Protein 6.2 G/DL (6.4-8.2) L Albumin 1.3 G/DL (3.4-5.0) L Globulin 4.9 g/dL Albumin/Globulin Ratio 0.3 (1.0-2.7) L Carcinoembryonic Antigen Pending CA 19-9 Antigen Pending Vitamin B12 Level > 2000 PG/ML (193-986) H Folate 14.8 NG/ML (8.6-58.9) Free Thyroxine 1.36 NG/DL (0.76-1.46) Risk Assessment & Plan Assessment: ASA 3 Plan: Ryan Sutton MD Jul 27, 2018 09:04
--- NOTE | 2018-07-27 09:15 | NUR ---
NURSE NOTES: Fleet enema given prior to EGD/ colonoscopy procedure. The patient was safely transported to the procedure room without acute distress or shortness of breath.
[2018-07-27] MEDS ORDERED: Propofol 200mg/20ml IV ONE (09:20)
--- NOTE | 2018-07-27 09:22 | Diagnostic Imaging Report ---
Indication: Abdominal pain Technique: Continuous helical transaxial imaging of the abdomen and pelvis was obtained from the lung bases to the pubic symphysis during intravenous contrast administration. Coronal 2-D reformats were also obtained. Study obtained in a Siemens sensation [address] Automatic Exposure Control was utilized. Total Dose length Product (DLP): 941.[address] Dose Index Volume (CTDIvol): 17.49 mGy Comparison: Noncontrast CT abdomen earlier the same day. FINDINGS: There are multifocal partially enhancing hypodensities within both lobes of the liver with the largest single area of involvement in the lateral segment left lobe in an area measuring about 6 to 7 cm. The differential diagnosis includes multifocal liver abscesses versus disseminated neoplasm. Correlate clinically. Gallbladder is contracted. There is evidence of thrombosis of the main portal vein and both the left and right portal vein branches. The splenic vein and the SMV appear patent as visualized. There is redundancy of the sigmoid colon in the area of the pelvis and rectum with multiple unopacified loops of fluid-filled sigmoid colon. Difficult to evaluate for fluid without obvious abscess identified. Diverticula noted throughout the colon. No evidence of bowel obstruction. A small amount of free fluid is seen surrounding the uterus. The urinary bladder is unremarkable. There is a left renal cyst measuring 4.5 cm. There is no adrenal mass. Pancreas enhances. Mild aortoiliac calcifications are present. Small nodes are seen in the mesentery and retroperitoneum. There is basilar atelectasis with streaky densities are present. The spleen is enlarged. There is a lobulated 3 cm hypodensity in the spleen nonspecific. IMPRESSION: Multifocal liver hypodensities suspicious for abscess. Please correlate clinically. Differential diagnosis includes metastatic neoplasm. Portal vein thrombosis. 3 cm hypodensity in the spleen nonspecific. This could be a mass or abscess. Left renal cysts. Minimal free fluid. Diverticulosis of the colon. Posterior basilar atelectasis versus pneumonia. [facility] has communicated the preliminary results to the Emergency Department. Their findings are largely concordant with this report. The CT scanner at [facility] is accredited by the [employer] and the scans are performed using dose optimization techniques as appropriate to a performed exam including Automatic Exposure control.
[2018-07-27] MEDS ORDERED: NS 500ML IVPB ONE (09:25)
--- NOTE | 2018-07-27 09:55 | Endoscopy Procedure Note ---
Endoscopy Procedure Note General Indication for Procedure: anemia Procedures Performed: EGD, colonoscopy Operative Findings/Diagnosis: gastritis, , 2 colon polyps Specimen: yes Pt Tolerated Procedure Well: Yes Estimated Blood Loss: none Anesthesia Anesthesiologist: oscar Anesthesia: MAC Inserted Devices Implant(s) used?: No Quality Quality of Bowel Preparation: Good Did scope reach the cecum?: Yes Was there any complications?: No GI Core Measures 50 yrs or older w/o bx or poly: Not Applicable 10yrs. F/U not recommended: Not Applicable Sixto Conner MD Jul 27, 2018 09:55
[2018-07-27] MEDS ORDERED: fentaNYL 100 mcg/2 mL IV PRN (10:00)
--- NOTE | 2018-07-27 10:03 | Immediate Post-Op Evaluation ---
Immediate Post-Op Evalulation Immediate Post-Op Evalulation Procedure: EGD colonoscopy Date of Evaluation: Jul 27, 2018 Time of Evaluation: 10:02 IV Fluids: 400 Blood Products: none Estimated Blood Loss: none Urinary Output: none Blood Pressure Systolic: 127 Blood Pressure Diastolic: 73 Pulse Rate: 86 Respiratory Rate: 20 O2 Sat by Pulse Oximetry: 98 Temperature (Fahrenheit): 97.6 Pain Score (1-10): 1 Nausea: No Vomiting: No Complications none Patient Status: awake, patent, none Hydration Status: adequate Ryan Pittman MD Jul 27, 2018 10:03
--- NOTE | 2018-07-27 10:10 | Consultation ---
Consult Note Consult Note asked to eval for proteinuria and abnormal electrolytes Patient is a 68-year-old female brought in by EMS after increased generalized weakness. Patient was noted to have increased vomiting as well as diarrhea for several days. Patient states that she started this approximately 3 weeks ago. She is not currently seeing a doctor but takes medications for hypertension. Patient reportedly had increased pain throughout the bilateral upper abdomen as well as some increased dysuria. She had been having episodes of diarrhea and has been feeling weak all over. She reports having some severe low back pain. She additionally reports having pain to the left shoulder and is have been having some increased difficulty with movements. She reports having some prior history of arthritis.Patient reports having generalized body aches. She states she is been able to ambulate with assistance. data reviewed examined . Assessment/Plan Proteinuria and HypoAlbuminemia: Etiology ? HypoNatremia , likely depletional Liver disease, Mass, Abcess... other conditions: (1) Intractable nausea and vomiting, abdominal pain , diarrhea (2) Sepsis, leukocytosis (3) Anemia (4) History of hypertension (5) UTI (urinary tract infection) GI fofana urine studies Anemia fofana monitor renal parameters and LFTs Keep BP in check CT: Multifocal liver hypodensities suspicious for abscess. Differential diagnosis includes metastatic neoplasm. Portal vein thrombosis. 3 cm hypodensity in the spleen nonspecific. This could be a mass or abscess. Left renal cysts. Minimal free fluid. Diverticulosis of the colon. Posterior basilar atelectasis versus pneumonia. Luis E Deng MD Jul 27, 2018 10:10
[2018-07-27] MEDS ORDERED: D5NS 1,000 ML IV SCH (10:18)
--- NOTE | 2018-07-27 10:42 | 48 Hour Post Anesthesia Eval ---
Post Anesthesia Evaluation Procedure: EGD colonoscopy Date of Evaluation: Jul 27, 2018 Time of Evaluation: 10:41 Blood Pressure Systolic: 127 0: 56 Pulse Rate: 68 Respiratory Rate: 22 Temperature (Fahrenheit): 97.6 O2 Sat by Pulse Oximetry: 98 Airway: patent Nausea: No Vomiting: No Pain Intensity: 1 Hydration Status: adequate Cardiopulmonary Status: stable Mental Status/LOC: patient returned to baseline Follow-up Care/Observations: n/a Post-Anesthesia Complications: none Follow-up care needed: N/A yRan Pittman MD Jul 27, 2018 10:42
[2018-07-27] MEDS: Cefepime HCl 2 GM in D5W 110 ML IV SCH (11:06)
--- NOTE | 2018-07-27 11:33 | Diagnostic Imaging Report ---
Indication:Abdominal pain. Increased LFTs Technique: Grayscale and duplex Doppler imaging of the abdomen performed. Comparison: None Findings: The liver is markedly heterogeneous. Hypoechogenic foci noted within the liver especially in the left lobe. Please refer to the CT report. The gallbladder shows marked wall thickening. Pancreas and aorta are poorly seen. The spleen is poorly evaluated. There is no biliary ductal dilatation identified. Doppler evaluation of the main portal vein shows thrombosis with cavernous transformation. This has been documented on the subsequent CT. No hydronephrosis seen. There is a 5 cm left renal cyst demonstrated. Impression: Portal vein thrombosis with cavernous transformation. Abnormal liver. Please refer to the CT report. Poor evaluation of the spleen not well seen on this examination. Marked wall thickening of the gallbladder. Left renal cyst
--- NOTE | 2018-07-27 14:20 | Pulmonology Progress Note ---
Assessment/Plan Problems: (1) Sepsis (2) Intractable nausea and vomiting (3) Anemia (4) History of hypertension (5) UTI (urinary tract infection) Assessment/Plan f/u EGD and colonoscopy results f/u tumor markers on Venofer check urine cultures dvt prophylaxis. Subjective ROS Limited/Unobtainable: No Constitutional: Reports: no symptoms HEENT: Repors: no symptoms Allergies: Coded Allergies: No Known Allergies (Unverified , 07/26/18) Objective Last 24 Hour Vital Signs Date Time Temp Pulse Resp B/P (MAP) Pulse Ox O2 Delivery O2 Flow Rate FiO2 07/27/18 12:00 98.0 85 20 125/60 (81) 97 07/27/18 10:42 68 22 98 07/27/18 10:24 84 26 105/58 100 Nasal Cannula 3 07/27/18 10:15 97.0 81 27 108/55 100 Nasal Cannula 3 07/27/18 10:10 81 26 107/55 99 Nasal Cannula 3 07/27/18 10:05 82 22 98/51 99 Nasal Cannula 3 07/27/18 10:03 86 20 98 07/27/18 10:02 97.2 84 18 104/72 99 Nasal Cannula 3 07/27/18 09:00 Nasal Cannula 2.0 07/27/18 08:00 80 07/27/18 08:00 98.2 89 18 118/57 (77) 98 07/27/18 07:41 91 18 Nasal Cannula 2.0 28 07/27/18 07:41 98 Nasal Cannula 2.0 28 07/27/18 07:41 Nasal Cannula 2.0 28 07/27/18 04:00 90 07/27/18 04:00 98.5 83 24 109/60 (76) 95 07/27/18 00:00 96 07/27/18 00:00 98.0 95 24 120/64 (82) 97 07/26/18 22:05 89 18 Nasal Cannula 2.0 28 07/26/18 22:05 Nasal Cannula 2.0 28 07/26/18 22:05 97 Nasal Cannula 2.0 28 07/26/18 21:00 Nasal Cannula 2.0 07/26/18 20:00 79 07/26/18 20:00 98.2 95 24 128/60 (82) 97 07/26/18 16:00 85 07/26/18 16:00 98.8 95 26 116/66 (83) 95 Intake and Output 07/26/18 07/27/18 19:00 07:00 Intake Total 1000 ml Balance 1000 ml Intake Oral 0 ml IV Total 1000 ml # Voids 4 # Bowel Movements 8 Objective General Appearance: WD/WN Lines, tubes and drains: peripheral HEENT: normocephalic, atraumatic Neck: non-tender, normal alignment Respiratory/Chest: lungs clear, normal breath sounds Breasts: no masses Cardiovascular/Chest: normal peripheral pulses, normal rate Abdomen: normal bowel sounds Genitourinary/Rectal: normal genital exam Extremities: normal range of motion Skin Exam: normal pigmentation 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 Laboratory Tests 07/27/18 06:00: White Blood Count 17.9H, Red Blood Count 3.22L, Hemoglobin 9.0L, Hematocrit 26.9L, Mean Corpuscular Volume 84, Mean Corpuscular Hemoglobin 28.0, Mean Corpuscular Hemoglobin Concent 33.5, Red Cell Distribution Width 12.4, Platelet Count 469H, Mean Platelet Volume 5.9L, Neutrophils (%) (Auto) , Lymphocytes (%) (Auto) , Monocytes (%) (Auto) , Eosinophils (%) (Auto) , Basophils (%) (Auto) , Differential Total Cells Counted 100, Neutrophils % (Manual) 70, Lymphocytes % ( Manual) 11L, Monocytes % (Manual) 3, Eosinophils % (Manual) 1, Basophils % ( Manual) 0, Band Neutrophils 15H, Platelet Estimate IncreasedH, Platelet Morphology Normal, Red Blood Cell Morphology Normal, Sodium Level 133L, Potassium Level 4.6, Chloride Level 101, Carbon Dioxide Level 23, Anion Gap 9, Blood Urea Nitrogen 10, Creatinine 1.1, Estimat Glomerular Filtration Rate 49.1 , Glucose Level 99, Calcium Level 8.1L, Iron Level 12L, Total Iron Binding Capacity 94L, Percent Iron Saturation 13L, Unsaturated Iron Binding 82L, Total Bilirubin 0.9, Aspartate Amino Transf (AST/SGOT) 92H, Alanine Aminotransferase ( ALT/SGPT) 96H, Alkaline Phosphatase 391H, Total Protein 6.2L, Albumin 1.3L, Globulin 4.9, Albumin/Globulin Ratio 0.3L, Carcinoembryonic Antigen [Pending], CA 19-9 Antigen [Pending], Vitamin B12 Level > 2000H, Folate 14.8, Free Thyroxine 1.36, Hepatitis A IgM Antibody [Pending], Hepatitis B Surface Antigen [Pending], Hepatitis B Core IgM Antibody [Pending], Hepatitis C Antibody [ Pending] 07/27/18 13:00: Urine Random Sodium 26 Current Medications Medications (Trade) Dose Ordered Sig/Jose Route PRN Reason Start Time Stop Time Status Last Admin Dose Admin Acetaminophen (Tylenol) 650 mg Q4H PRN ORAL fever 07/26/18 10:16 08/25/18 10:15 07/27/18 11:05 Albuterol/ Ipratropium (Albuterol/ Ipratropium) 3 ml Q4H PRN HHN Shortness of Breath 07/26/18 10:15 07/31/18 10:14 Barium Sulfate (Readi-Cat 2) 450 ml NOW PRN ORAL Radiology Procedure 07/26/18 12:30 07/28/18 12:29 Cefepime HCl 2 gm/ Dextrose 110 ml @ 220 mls/hr Q24H IV 07/26/18 12:00 08/02/18 11:59 07/27/18 11:06 Dextrose/Sodium Chloride 1,000 ml @ 50 mls/hr Q20H IV 07/27/18 10:18 08/26/18 10:17 07/27/18 11:14 Fentanyl Citrate (Sublimaze 100 mcg/2 mL) 25 mcg Q10M PRN IV Moderate Pain (Pain Scale 4-6) 07/27/18 10:00 07/27/18 18:00 Heparin Sodium (Porcine) (Heparin 5000 units/ml) 5,000 units EVERY 12 HOURS SUBQ 07/26/18 21:00 08/25/18 20:59 Iopamidol (Isovue-300 100ml) 100 ml NOW PRN INJ Radiology Procedure 07/26/18 12:30 07/28/18 12:29 Iron Sucrose 100 mg/Sodium Chloride 60 ml @ 240 mls/hr BEDTIME IV 07/27/18 21:00 07/31/18 21:14 Metronidazole 100 ml @ 100 mls/hr Q8HR IVPB 07/26/18 15:00 08/02/18 14:59 07/27/18 13:49 Morphine Sulfate (Morphine Sulfate) 2 mg Q4H PRN IVP Moderate Pain (Pain Scale 4-6) 07/26/18 10:15 08/02/18 10:14 Ondansetron HCl (Zofran) 4 mg Q1H PRN IVP Nausea & Vomiting 07/27/18 10:00 07/27/18 18:00 Ondansetron HCl (Zofran) 4 mg Q6H PRN IVP Nausea & Vomiting 07/26/18 10:15 08/25/18 10:14 Pantoprazole (Protonix) 40 mg DAILY ORAL 07/28/18 09:00 08/27/18 08:59 Phenazopyridine HCl (Pyridium) 100 mg DAILYPRN PRN ORAL dysuria 07/26/18 10:15 08/25/18 10:14 Polyethylene Glycol (Miralax) 17 gm DAILYPRN PRN ORAL Constipation 07/26/18 10:15 08/25/18 10:14 Temazepam (Restoril) 15 mg HSPRN PRN ORAL Insomnia 07/26/18 10:15 08/02/18 10:14 Kirsten Leonard MD Jul 27, 2018 14:20
--- NOTE | 2018-07-27 15:36 | Infectious Diseases Prog Note ---
Assessment/Plan Assessment/Plan Assessment: Sepsis- 2ry to Liver abscess vs malignancy -CT abd/p w/ : Multifocal liver hypodensities suspicious for abscess. Please correlate clinically. Differential diagnosis includes metastatic neoplasm. Portal vein thrombosis. 3 cm hypodensity in the spleen nonspecific. This could be a mass or abscess. Left renal cysts. Minimal free fluid. Diverticulosis of the colon.Posterior basilar atelectasis versus pneumonia.Gallbladder is contracted. -CT abd/p wo: Limited assessment of the GI tract, due to lack of enteric contrast administration. Trace free intraperitoneal fluid in the pelvis. No acute abdominal process otherwise Trace bilateral pleural effusions. Nonspecific mild thickening of Gerota's fascia. Multiple faint and ill-defined liver masses, not well demonstrated due to lack of IV contrast administration. These mostly appear to be demonstrate fluid attenuation, but are not well enough demonstrated to state for certain. Further evaluation with contrast CT if not contraindicated and ultrasound recommended Bulky pancreatic head, without definite discrete mass. Likewise, further evaluation with contrast CT would be useful to evaluate for possible underlying mass. Gallbladder is nondistended, but this wall appears somewhat edematous. Consider further evaluation with ultrasound if there is clinical suspicion for acute cholecystitis or gallstone disease -u/a wbc 0-2, nit neg, leuk +1 Low grade fever; improving Leukocytosis; persistent -CXR: Retrocardiac atelectasis. No acute process otherwise Elevated LFTs -Abd US: Portal vein thrombosis with cavernous transformation.Abnormal liver. Please refer to the CT report.Poor evaluation of the spleen not well seen on this examination.Marked wall thickening of the gallbladder.Left renal cyst HTN arthritis Plan: -Continue empiric Cefepime #2 and add Flagyl #2 for probable liver abscess -07/26 SP IV Vancomycin #1, Zosyn x1 -CT guided liver abscess drainage -send fluid for cytology, and cultures (AFB, Fungal, bacterial) -f/u cx -Monitor CBC/CMP, temperatures -f/u hep panel am -aspiration precautions Thank you for this consultation. Will continue to follow along with you. Discussed with RN. Subjective Allergies: Coded Allergies: No Known Allergies (Unverified , 07/26/18) Subjective afebrile in ~24hrs wbc remains at 17 Objective Vital Signs Last 24 Hour Vital Signs Date Time Temp Pulse Resp B/P (MAP) Pulse Ox O2 Delivery O2 Flow Rate FiO2 07/27/18 12:00 88 07/27/18 12:00 98.0 85 20 125/60 (81) 97 07/27/18 10:42 68 22 98 07/27/18 10:24 84 26 105/58 100 Nasal Cannula 3 07/27/18 10:15 97.0 81 27 108/55 100 Nasal Cannula 3 07/27/18 10:10 81 26 107/55 99 Nasal Cannula 3 07/27/18 10:05 82 22 98/51 99 Nasal Cannula 3 07/27/18 10:03 86 20 98 07/27/18 10:02 97.2 84 18 104/72 99 Nasal Cannula 3 07/27/18 09:00 Nasal Cannula 2.0 07/27/18 08:00 80 07/27/18 08:00 98.2 89 18 118/57 (77) 98 07/27/18 07:41 91 18 Nasal Cannula 2.0 28 07/27/18 07:41 98 Nasal Cannula 2.0 28 07/27/18 07:41 Nasal Cannula 2.0 28 07/27/18 04:00 90 07/27/18 04:00 98.5 83 24 109/60 (76) 95 07/27/18 00:00 96 07/27/18 00:00 98.0 95 24 120/64 (82) 97 07/26/18 22:05 89 18 Nasal Cannula 2.0 28 07/26/18 22:05 Nasal Cannula 2.0 28 07/26/18 22:05 97 Nasal Cannula 2.0 28 07/26/18 21:00 Nasal Cannula 2.0 07/26/18 20:00 79 07/26/18 20:00 98.2 95 24 128/60 (82) 97 07/26/18 16:00 85 07/26/18 16:00 98.8 95 26 116/66 (83) 95 Height (Feet): 5 Height (Inches): 6.00 Weight (Pounds): 180 Objective General Appearance: normal inspection, alert, GCS 15, moderate distress, thin, Chronically Ill Head: atraumatic ENT: normal ENT inspection, hearing grossly normal, normal voice Neck: normal inspection, supple, no bony tend, limited range of motion Respiratory: normal inspection, lungs clear, normal breath sounds, no respiratory distress, no retraction Cardiovascular #1: regular rate, rhythm, no edema Gastrointestinal: normal inspection, normal bowel sounds, non tender, soft, no guarding, no hernia Genitourinary: no CVA tenderness Musculoskeletal: normal inspection, back normal, decreased range of motion Neurologic: normal inspection, alert, responsive, speech normal Psychiatric: normal inspection, judgement/insight normal, mood/affect normal Skin: normal inspection, normal color, no rash Laboratory Tests Test 07/27/18 06:00 07/27/18 13:00 White Blood Count 17.9 K/UL (4.8-10.8) H Red Blood Count 3.22 M/UL (4.20-5.40) L Hemoglobin 9.0 G/DL (12.0-16.0) L Hematocrit 26.9 % (37.0-47.0) L Mean Corpuscular Volume 84 FL (80-99) Mean Corpuscular Hemoglobin 28.0 PG (27.0-31.0) Mean Corpuscular Hemoglobin Concent 33.5 G/DL (32.0-36.0) Red Cell Distribution Width 12.4 % (11.6-14.8) Platelet Count 469 K/UL (150-450) H Mean Platelet Volume 5.9 FL (6.5-10.1) L Neutrophils (%) (Auto) % (45.0-75.0) Lymphocytes (%) (Auto) % (20.0-45.0) Monocytes (%) (Auto) % (1.0-10.0) Eosinophils (%) (Auto) % (0.0-3.0) Basophils (%) (Auto) % (0.0-2.0) Differential Total Cells Counted 100 Neutrophils % (Manual) 70 % (45-75) Lymphocytes % (Manual) 11 % (20-45) L Monocytes % (Manual) 3 % (1-10) Eosinophils % (Manual) 1 % (0-3) Basophils % (Manual) 0 % (0-2) Band Neutrophils 15 % (0-8) H Platelet Estimate Increased H Platelet Morphology Normal Red Blood Cell Morphology Normal Sodium Level 133 MMOL/L (136-145) L Potassium Level 4.6 MMOL/L (3.5-5.1) Chloride Level 101 MMOL/L (98-107) Carbon Dioxide Level 23 MMOL/L (21-32) Anion Gap 9 mmol/L (5-15) Blood Urea Nitrogen 10 mg/dL (7-18) Creatinine 1.1 MG/DL (0.55-1.30) Estimat Glomerular Filtration Rate 49.1 mL/min (>60) Glucose Level 99 MG/DL (74-106) Calcium Level 8.1 MG/DL (8.5-10.1) L Iron Level 12 ug/dL (50-175) L Total Iron Binding Capacity 94 ug/dL (250-450) L Percent Iron Saturation 13 % (15-50) L Unsaturated Iron Binding 82 ug/dL (112-346) L Total Bilirubin 0.9 MG/DL (0.2-1.0) Aspartate Amino Transf (AST/SGOT) 92 U/L (15-37) H Alanine Aminotransferase (ALT/SGPT) 96 U/L (12-78) H Alkaline Phosphatase 391 U/L (46-116) H Total Protein 6.2 G/DL (6.4-8.2) L Albumin 1.3 G/DL (3.4-5.0) L Globulin 4.9 g/dL Albumin/Globulin Ratio 0.3 (1.0-2.7) L Carcinoembryonic Antigen Pending CA 19-9 Antigen Pending Vitamin B12 Level > 2000 PG/ML (193-986) H Folate 14.8 NG/ML (8.6-58.9) Free Thyroxine 1.36 NG/DL (0.76-1.46) Hepatitis A IgM Antibody Pending Hepatitis B Surface Antigen Pending Hepatitis B Core IgM Antibody Pending Hepatitis C Antibody Pending Urine Random Sodium 26 mmol/L (20-110) Current Medications Medications (Trade) Dose Ordered Sig/Jose Route PRN Reason Start Time Stop Time Status Last Admin Dose Admin Acetaminophen (Tylenol) 650 mg Q4H PRN ORAL fever 07/26/18 10:16 08/25/18 10:15 07/27/18 11:05 Albuterol/ Ipratropium (Albuterol/ Ipratropium) 3 ml Q4H PRN HHN Shortness of Breath 07/26/18 10:15 07/31/18 10:14 Barium Sulfate (Readi-Cat 2) 450 ml NOW PRN ORAL Radiology Procedure 07/26/18 12:30 07/28/18 12:29 Cefepime HCl 2 gm/ Dextrose 110 ml @ 220 mls/hr Q24H IV 07/26/18 12:00 08/02/18 11:59 07/27/18 11:06 Dextrose/Sodium Chloride 1,000 ml @ 50 mls/hr Q20H IV 07/27/18 10:18 08/26/18 10:17 07/27/18 11:14 Fentanyl Citrate (Sublimaze 100 mcg/2 mL) 25 mcg Q10M PRN IV Moderate Pain (Pain Scale 4-6) 07/27/18 10:00 07/27/18 18:00 Heparin Sodium (Porcine) (Heparin 5000 units/ml) 5,000 units EVERY 12 HOURS SUBQ 07/26/18 21:00 08/25/18 20:59 Iopamidol (Isovue-300 100ml) 100 ml NOW PRN INJ Radiology Procedure 07/26/18 12:30 07/28/18 12:29 Iron Sucrose 100 mg/Sodium Chloride 60 ml @ 240 mls/hr BEDTIME IV 07/27/18 21:00 07/31/18 21:14 Metronidazole 100 ml @ 100 mls/hr Q8HR IVPB 07/26/18 15:00 08/02/18 14:59 07/27/18 13:49 Morphine Sulfate (Morphine Sulfate) 2 mg Q4H PRN IVP Moderate Pain (Pain Scale 4-6) 07/26/18 10:15 08/02/18 10:14 Ondansetron HCl (Zofran) 4 mg Q1H PRN IVP Nausea & Vomiting 07/27/18 10:00 07/27/18 18:00 Ondansetron HCl (Zofran) 4 mg Q6H PRN IVP Nausea & Vomiting 07/26/18 10:15 08/25/18 10:14 Pantoprazole (Protonix) 40 mg DAILY ORAL 07/28/18 09:00 08/27/18 08:59 Phenazopyridine HCl (Pyridium) 100 mg DAILYPRN PRN ORAL dysuria 07/26/18 10:15 08/25/18 10:14 Polyethylene Glycol (Miralax) 17 gm DAILYPRN PRN ORAL Constipation 07/26/18 10:15 08/25/18 10:14 Temazepam (Restoril) 15 mg HSPRN PRN ORAL Insomnia 07/26/18 10:15 08/02/18 10:14 Ebonie Milan M.D. Jul 27, 2018 15:36
--- NOTE | 2018-07-27 17:30 | Internal Med Progress Note ---
Subjective Physician Name Eh Ann Attending Physician Eh Ann MD Current Medications Medications (Trade) Dose Ordered Sig/Jose Route PRN Reason Start Time Stop Time Status Last Admin Dose Admin Acetaminophen (Tylenol) 650 mg Q4H PRN ORAL fever 07/26/18 10:16 08/25/18 10:15 07/27/18 17:19 Albuterol/ Ipratropium (Albuterol/ Ipratropium) 3 ml Q4H PRN HHN Shortness of Breath 07/26/18 10:15 07/31/18 10:14 Barium Sulfate (Readi-Cat 2) 450 ml NOW PRN ORAL Radiology Procedure 07/26/18 12:30 07/28/18 12:29 Cefepime HCl 2 gm/ Dextrose 110 ml @ 220 mls/hr Q24H IV 07/26/18 12:00 08/02/18 11:59 07/27/18 11:06 Dextrose/Sodium Chloride 1,000 ml @ 50 mls/hr Q20H IV 07/27/18 10:18 08/26/18 10:17 07/27/18 11:14 Fentanyl Citrate (Sublimaze 100 mcg/2 mL) 25 mcg Q10M PRN IV Moderate Pain (Pain Scale 4-6) 07/27/18 10:00 07/27/18 18:00 Heparin Sodium (Porcine) (Heparin 5000 units/ml) 5,000 units EVERY 12 HOURS SUBQ 07/26/18 21:00 08/25/18 20:59 Iopamidol (Isovue-300 100ml) 100 ml NOW PRN INJ Radiology Procedure 07/26/18 12:30 07/28/18 12:29 Iron Sucrose 100 mg/Sodium Chloride 60 ml @ 240 mls/hr BEDTIME IV 07/27/18 21:00 07/31/18 21:14 Metronidazole 100 ml @ 100 mls/hr Q8HR IVPB 07/26/18 15:00 08/02/18 14:59 07/27/18 13:49 Morphine Sulfate (Morphine Sulfate) 2 mg Q4H PRN IVP Moderate Pain (Pain Scale 4-6) 07/26/18 10:15 08/02/18 10:14 Ondansetron HCl (Zofran) 4 mg Q1H PRN IVP Nausea & Vomiting 07/27/18 10:00 07/27/18 18:00 Ondansetron HCl (Zofran) 4 mg Q6H PRN IVP Nausea & Vomiting 07/26/18 10:15 08/25/18 10:14 Pantoprazole (Protonix) 40 mg DAILY ORAL 07/28/18 09:00 08/27/18 08:59 Phenazopyridine HCl (Pyridium) 100 mg DAILYPRN PRN ORAL dysuria 07/26/18 10:15 08/25/18 10:14 Polyethylene Glycol (Miralax) 17 gm DAILYPRN PRN ORAL Constipation 07/26/18 10:15 08/25/18 10:14 Temazepam (Restoril) 15 mg HSPRN PRN ORAL Insomnia 07/26/18 10:15 08/02/18 10:14 Allergies: Coded Allergies: No Known Allergies (Unverified , 07/26/18) Subjective Awake, alert, responsive, denies any nausea or vomiting, denies any shortness of breath. WBC: 17.9. Objective Last Vital Signs Date Time Temp Pulse Resp B/P (MAP) Pulse Ox O2 Delivery O2 Flow Rate FiO2 07/27/18 16:00 98.4 95 18 129/40 (69) 95 07/27/18 10:24 Nasal Cannula 3 07/27/18 07:41 28 Laboratory Tests Test 07/27/18 06:00 07/27/18 13:00 White Blood Count 17.9 K/UL (4.8-10.8) H Red Blood Count 3.22 M/UL (4.20-5.40) L Hemoglobin 9.0 G/DL (12.0-16.0) L Hematocrit 26.9 % (37.0-47.0) L Mean Corpuscular Volume 84 FL (80-99) Mean Corpuscular Hemoglobin 28.0 PG (27.0-31.0) Mean Corpuscular Hemoglobin Concent 33.5 G/DL (32.0-36.0) Red Cell Distribution Width 12.4 % (11.6-14.8) Platelet Count 469 K/UL (150-450) H Mean Platelet Volume 5.9 FL (6.5-10.1) L Neutrophils (%) (Auto) % (45.0-75.0) Lymphocytes (%) (Auto) % (20.0-45.0) Monocytes (%) (Auto) % (1.0-10.0) Eosinophils (%) (Auto) % (0.0-3.0) Basophils (%) (Auto) % (0.0-2.0) Differential Total Cells Counted 100 Neutrophils % (Manual) 70 % (45-75) Lymphocytes % (Manual) 11 % (20-45) L Monocytes % (Manual) 3 % (1-10) Eosinophils % (Manual) 1 % (0-3) Basophils % (Manual) 0 % (0-2) Band Neutrophils 15 % (0-8) H Platelet Estimate Increased H Platelet Morphology Normal Red Blood Cell Morphology Normal Sodium Level 133 MMOL/L (136-145) L Potassium Level 4.6 MMOL/L (3.5-5.1) Chloride Level 101 MMOL/L (98-107) Carbon Dioxide Level 23 MMOL/L (21-32) Anion Gap 9 mmol/L (5-15) Blood Urea Nitrogen 10 mg/dL (7-18) Creatinine 1.1 MG/DL (0.55-1.30) Estimat Glomerular Filtration Rate 49.1 mL/min (>60) Glucose Level 99 MG/DL (74-106) Calcium Level 8.1 MG/DL (8.5-10.1) L Iron Level 12 ug/dL (50-175) L Total Iron Binding Capacity 94 ug/dL (250-450) L Percent Iron Saturation 13 % (15-50) L Unsaturated Iron Binding 82 ug/dL (112-346) L Total Bilirubin 0.9 MG/DL (0.2-1.0) Aspartate Amino Transf (AST/SGOT) 92 U/L (15-37) H Alanine Aminotransferase (ALT/SGPT) 96 U/L (12-78) H Alkaline Phosphatase 391 U/L (46-116) H Total Protein 6.2 G/DL (6.4-8.2) L Albumin 1.3 G/DL (3.4-5.0) L Globulin 4.9 g/dL Albumin/Globulin Ratio 0.3 (1.0-2.7) L Carcinoembryonic Antigen Pending CA 19-9 Antigen Pending Vitamin B12 Level > 2000 PG/ML (193-986) H Folate 14.8 NG/ML (8.6-58.9) Free Thyroxine 1.36 NG/DL (0.76-1.46) Hepatitis A IgM Antibody Pending Hepatitis B Surface Antigen Pending Hepatitis B Core IgM Antibody Pending Hepatitis C Antibody Pending Urine Random Sodium 26 mmol/L (20-110) Intake and Output 07/26/18 07/27/18 19:00 07:00 Intake Total 1000 ml Balance 1000 ml Intake Oral 0 ml IV Total 1000 ml # Voids 4 # Bowel Movements 8 Objective General: No acute distress, awake and alert HEENT: NCAT, sclera anicteric, PERRL, EOMI. Neck: Supple, no significant jugular venous distention, Lungs: fair inspiratory effort, clear to auscultation bilaterally, no Wheeze or Rales. Heart: Regular rate and rhythm, normal S1/S2, no murmur. Abdomen: soft, nontender, nondistended. Normoactive bowel sounds, morbid obesity ,. / Rectal: Refused and deferred. Extremities: No Cyanosis , clubbing + 2 LE's edema. Neuro: A&O x 3, Able to move all extremities Skin: warm, no rash Assessment/Plan Assessment/Plan 1. Nausea with vomiting. 2. Diarrhea. 3. Abdominal pain. 4. Generalized weakness. 5. Fever. 6. Liver masses. 7. Elevated liver function tests. 8. Hypertension. 9. Leukocytosis. TREATMENT: 1. Nausea/vomiting/diarrhea/abdominal pain. A Gastroenterology consultation has been obtained with Dr. Sixto Conner. We will follow recommendations of Gastroenterology. 2. Liver masses possible abscess versus metastasized disease. A EGD colonoscopy July 27, 2018: Gastritis, gastric ulcer, colonic polyp. 3. Hypertension. The patient is currently hypotensive. 4. Leukocytosis/fever. An Infectious Disease consultation has been obtained with Dr. Milan. The patient has been placed empirically on intravenous Flagyl, and cefepime. CODE STATUS is full code. Monitor laboratory in a.m. Follow-up with cultures. Eh Ann MD Jul 27, 2018 17:30
--- NOTE | 2018-07-27 18:15 | Procedure Note ---
DATE OF PROCEDURE: 07/27/2018 SURGEON: Sixto Conner M.D. PROCEDURE: Upper endoscopy with biopsy and colonoscopy with biopsy. ANESTHESIA: Per Dr. Pittman. INSTRUMENT: Olympus adult flexible upper endoscope and colonoscope. INDICATION: Anemia, iron deficiency. REASON FOR PROCEDURE: The procedure, risks, benefits, and possible consequences, including hemorrhage, aspiration, perforation and infection, and alternative treatments, were explained to the patient/legal guardian by Dr. Sixto Conner and the patient/legal guardian understood and accepted these risks. DESCRIPTION OF PROCEDURE: After informed consent was obtained and the patient was adequately sedated, Olympus upper endoscope was advanced from mouth and second portion of the duodenum and retroflexion was performed in the stomach. The patient has evidence of 4 columns of grade 2 esophageal varices without any stigmata of the bleeding. In the stomach, there was evidence of diffuse gastritis. There was evidence of portal hypertensive gastropathy. Random biopsies from body and antrum was obtained. The patient had multiple erosions and maybe 1 shallow ulceration in the antrum of the stomach. In the duodenum, there was mild atrophy. Random biopsy from duodenum was also obtained. At this time, the upper endoscope was retrieved and the patient was turned over for colonoscopy. First, rectal exam was performed, which was positive for external and internal hemorrhoids. Then, the scope was advanced from the rectum into the cecum documented by appendiceal orifice, ileocecal valve, right upper quadrant palpation. Quality of prep was good. The patient had two diminutive polyps in the transverse colon, both removed with cold biopsy forceps technique. The patient had evidence of diverticulosis scattered within the right and left colon. Retroflexion of the rectum showed evidence of medium-sized internal hemorrhoids. SUMMARY OF FINDINGS: 1. Esophageal varices, grade 2 four columns. 2. Portal hypertensive gastropathy. 3. Multiple gastric erosions and 1 gastric ulceration. 4. Duodenal atrophy. 5. Internal and external hemorrhoids. 6. Diverticulosis. 7. Two colonic polyps, removed, see above for details. RECOMMENDATIONS: 1. Follow path. 2. Start PPI daily. 3. Abdominal ultrasound. 4. Hepatitis panel. 5. Workup for liver disease. I want to thank Dr. Eh Ann for this kind referral. Sixto Georgina Conner DR: AMIRA JOB#: [id number] CC: Eh Ann M.D.; Fax#: [phone]
--- NOTE | 2018-07-27 18:45 | NUR ---
NURSE NOTES: Received pt from RN AILYN/WILBUR. Pt is alert and orient x4. pt has NC 2LMP. SKIN IS INTACT. all belongings are with pt. pt has intact iv access LAC 20G SL, and LH 22G is running well. all needs attended, bed is locked and is in the lowest position, call light within easy reach. will continue to monitor.
--- NOTE | 2018-07-27 18:45 | NUR ---
NURSE NOTES: The patient's report was given to SCOTT Hernandez. The patient was safely transferred to [facility]. The patient's belongings were checked with the patient and SCOTT Hernandez at the bed side. The patient was in stable condition without acute distress or shortness of breath. The patient's vital signs were stable, and IV was intact. The patient's bed was positioned to the lowest position, call light in reach, and fall precaution reinforced. Endorsed plan of care.
[2018-07-27] MEDS ORDERED: Morphine Sulfate 2mg/ml Inj(IV/IM USE ONLY) IVP PRN (18:49)
[2018-07-27] MEDS ORDERED: Albuterol/Ipratropium 3ml neb HHN PRN (18:49)
[2018-07-27] MEDS ORDERED: Miralax 17gm pkt ORAL PRN (18:50)
--- NOTE | 2018-07-27 19:34 | NUR ---
HAND-OFF: Report given to SCOTT LOMBARDO.
--- NOTE | 2018-07-27 19:37 | NUR ---
NURSE NOTES: Nursing chart check done on wrong patient. Transferred patient to [facility] around 1830.
--- NOTE | 2018-07-27 19:53 | NUR ---
NURSE NOTES: Pt in bed at lowest position, call light within reach, able to make needs known, guest at bedside, IVs in place running fluids, will continue to monitor.
[2018-07-27] MEDS: D5NS 1,000 ML IV SCH (20:00)
[2018-07-27] MEDS ORDERED: Iron Sucrose 100 MG in NS 55 ML IV SCH (21:00)
[2018-07-27] MEDS: Iron Sucrose 100 MG in NS 55 ML IV SCH (21:07)
--- NOTE | 2018-07-27 21:59 | Cardiology Report ---
APPROVED REPORT EKG Measurement Heart [id number] Normal sinus rhythm Normal ECG
[2018-07-27 23:26] LABS: APPEARANCE,URINE CLEAR; BILIRUBIN, URINE NEGATIVE (NEGATIVE); COLOR,URINE AMBER; GLUCOSE, URINE (UA) NEGATIVE (NEGATIVE); KETONES,URINE 1+ (NEGATIVE); LEUKOCYTE ESTERASE ,URINE 1+ (NEGATIVE); NITRITE,URINE NEGATIVE (NEGATIVE); PH,URINE 5 (4.5-8.0); PROTEIN,URINE 2+ (NEGATIVE); UROBILINOGEN,URINE NORMAL MG/DL (0.0-1.0)
[2018-07-28] VITALS: BP 108/55
[2018-07-28 04:00] VITALS: BP 115/59
--- NOTE | 2018-07-28 07:30 | NUR ---
NURSE NOTES: AWAKE /ALERT. PAIN SCALE 4/10. IN NO ACUTE DISTRESS.
[2018-07-28 07:41] LABS: HEMATOCRIT 29.8 % (37.0-47.0); HEMOGLOBIN 10.1 G/DL (12.0-16.0); MEAN CORPUSCULAR VOLUME 83 FL (80-99); PLATELET COUNT 579 K/UL (150-450); RED BLOOD COUNT 3.59 M/UL (4.20-5.40); RED CELL DISTRIBUTION WIDTH 12.5 % (11.6-14.8); WHITE BLOOD COUNT 18.9 K/UL (4.8-10.8)
[2018-07-28 07:46] LABS: INR 1.3 (0.9-1.1)
--- NOTE | 2018-07-28 07:53 | NUR ---
HAND-OFF: Report given to SCOTT Mathews.
[2018-07-28 08:00] VITALS: BP 105/57
[2018-07-28 08:01] LABS: AMMONIA 29 umol/L (11-32)
[2018-07-28 08:24] LABS: ALANINE AMINOTRANSFERASE 89 U/L (12-78); ALBUMIN 1.3 G/DL (3.4-5.0); ALBUMIN/GLOBULIN RATIO 0.2 (1.0-2.7); ALKALINE PHOSPHATASE 356 U/L (46-116); ANION GAP 11 mmol/L (5-15); ASPARTATE AMINO TRANSFERASE 73 U/L (15-37); BILIRUBIN,TOTAL 0.7 MG/DL (0.2-1.0); BLOOD UREA NITROGEN 10 mg/dL (7-18); CALCIUM 8.3 MG/DL (8.5-10.1); CARBON DIOXIDE 21 MMOL/L (21-32); CHLORIDE 103 MMOL/L (98-107); CHOLESTEROL 67 MG/DL (< 200); FERRITIN 1489 NG/ML (8-388); HDL CHOLESTEROL 23 MG/DL (40-60); POTASSIUM 4.3 MMOL/L (3.5-5.1); SODIUM 135 MMOL/L (136-145); TRIGLYCERIDES 56 MG/DL (30-150)
[2018-07-28 08:31] LABS: PHOSPHORUS 4.1 MG/DL (2.5-4.9)
[2018-07-28] MEDS: Heparin 5000 units/ml inj SUBQ SCH ×2 (08:37→20:24)
--- NOTE | 2018-07-28 09:11 | NUR ---
NURSE NOTES: Received call from the [place] from [facility], Pt is positive fro Gram negative rods. Dr Milan notified
--- NOTE | 2018-07-28 09:38 | General Progress Note ---
Assessment/Plan Problem List: (1) Iron deficiency anemia ICD Codes: D50.9 - Iron deficiency anemia, unspecified SNOMED: 83535940 (2) Diarrhea ICD Codes: R19.7 - Diarrhea, unspecified SNOMED: 20979027 (3) Diverticulosis ICD Codes: K57.90 - Diverticulosis of intestine, part unspecified, without perforation or abscess without bleeding SNOMED: 034051899 (4) Abdominal pain ICD Codes: R10.9 - Unspecified abdominal pain SNOMED: 19955673 (5) Anemia ICD Codes: D64.9 - Anemia, unspecified SNOMED: 846317794 (6) Portal vein thrombosis ICD Codes: I81 - Portal vein thrombosis SNOMED: 88508076 (7) Esophageal varices ICD Codes: I85.00 - Esophageal varices without bleeding SNOMED: 92138964 (8) Gastric erosion ICD Codes: K25.9 - Gastric ulcer, unspecified as acute or chronic, without hemorrhage or perforation SNOMED: 738237327 Assessment/Plan: CT and us reviewed SUMMARY OF FINDINGS: EGD and colonoscopy 1. Esophageal varices, grade 2 four columns. 2. Portal hypertensive gastropathy. 3. Multiple gastric erosions and 1 gastric ulceration. 4. Duodenal atrophy. 5. Internal and external hemorrhoids. 6. Diverticulosis. 7. Two colonic polyps, removed, see above for details ppi fu tumor markers fu ID recs fu path ? need for anticoagulation repeat labs Subjective ROS Limited/Unobtainable: Yes Allergies: Coded Allergies: No Known Allergies (Unverified , 07/26/18) Objective Last 24 Hour Vital Signs Date Time Temp Pulse Resp B/P (MAP) Pulse Ox O2 Delivery O2 Flow Rate FiO2 07/28/18 08:15 Nasal Cannula 2.0 07/28/18 04:00 97.6 82 18 115/59 (77) 98 07/28/18 00:00 98.6 79 18 108/55 (72) 96 07/27/18 21:56 Nasal Cannula 2.0 28 07/27/18 21:56 96 Nasal Cannula 2.0 28 07/27/18 21:56 86 18 Nasal Cannula 2.0 28 07/27/18 21:00 Nasal Cannula 2.0 07/27/18 20:00 98.3 93 20 125/65 (85) 96 07/27/18 16:00 98.4 95 18 129/40 (69) 95 07/27/18 16:00 89 07/27/18 12:00 88 07/27/18 12:00 98.0 85 20 125/60 (81) 97 07/27/18 10:42 68 22 98 07/27/18 10:24 84 26 105/58 100 Nasal Cannula 3 07/27/18 10:15 97.0 81 27 108/55 100 Nasal Cannula 3 07/27/18 10:10 81 26 107/55 99 Nasal Cannula 3 07/27/18 10:05 82 22 98/51 99 Nasal Cannula 3 07/27/18 10:03 86 20 98 07/27/18 10:02 97.2 84 18 104/72 99 Nasal Cannula 3 Intake and Output 07/27/18 07/28/18 19:00 07:00 Intake Total 1175 ml 340 ml Output Total 600 ml Balance 575 ml 340 ml Intake Oral 240 ml IV Total 935 ml 340 ml Output Urine Total 600 ml Estimated Blood Loss 0 ml # Voids 5 # Bowel Movements 2 4 Laboratory Tests 07/27/18 13:00: Urine Random Sodium 26 07/27/18 22:00: Urine Color [place], Urine Appearance Clear, Urine pH 5, Urine Specific [place] 1.020, Urine Protein 2+H, Urine Glucose (UA) Negative, Urine Ketones 1+H, Urine Blood 1+H, Urine Nitrite Negative, Urine Bilirubin Negative, Urine Ictotest Negative, Urine Urobilinogen Normal, Urine Leukocyte Esterase 1+H, Urine RBC 2- 4H, Urine WBC 2-4, Urine Squamous Epithelial Cells ManyH, Urine Amorphous Sediment FewH, Urine Bacteria Few, Urine Granular Casts 5-10H, Urine Fine Granular Casts 2-4H 07/28/18 07:08: White Blood Count 18.9H, Red Blood Count 3.59L, Hemoglobin 10.1L, Hematocrit 29.8L, Mean Corpuscular Volume 83, Mean Corpuscular Hemoglobin 28.1, Mean Corpuscular Hemoglobin Concent 33.8, Red Cell Distribution Width 12.5, Platelet Count 579H, Mean Platelet Volume 5.8L, Neutrophils (%) (Auto) , Lymphocytes (%) (Auto) , Monocytes (%) (Auto) , Eosinophils (%) (Auto) , Basophils (%) (Auto) , Neutrophils % (Manual) [Pending], Lymphocytes % (Manual) [Pending], Platelet Estimate [Pending], Platelet Morphology [Pending], Erythrocyte Sedimentation Rate 113H, Prothrombin Time 13.1H, Prothromb Time International Ratio 1.3H, Sodium Level 135L, Potassium Level 4.3, Chloride Level 103, Carbon Dioxide Level 21, Anion Gap 11, Blood Urea Nitrogen 10, Creatinine 1.0, Estimat Glomerular Filtration Rate 54.8, Glucose Level 106, Hemoglobin A1c 6.7H, Uric Acid 4.1, Calcium Level 8.3L, Phosphorus Level 4.1, Ferritin 1489H, Total Bilirubin 0.7, Gamma Glutamyl Transpeptidase 203H, Aspartate Amino Transf (AST/ SGOT) 73H, Alanine Aminotransferase (ALT/SGPT) 89H, Alkaline Phosphatase 356H, Ammonia 29, C-Reactive Protein, Quantitative 42.6H, Pro-B-Type Natriuretic Peptide 849H, Total Protein 6.5, Albumin 1.3L, Globulin 5.2, Albumin/Globulin Ratio 0.2L, Triglycerides Level 56, Cholesterol Level 67, LDL Cholesterol 30, HDL Cholesterol 23L, Cholesterol/HDL Ratio 2.9L, Alpha Fetoprotein [Pending], HIV (1&2) Antibody Rapid Negative Height (Feet): 5 Height (Inches): 6.00 Weight (Pounds): 180 General Appearance: alert EENT: normal ENT inspection Neck: supple Cardiovascular: normal rate Respiratory/Chest: lungs clear Abdomen: normal bowel sounds, non tender, soft Extremities: non-tender Sixto Conner MD Jul 28, 2018 09:38
[2018-07-28] MEDS: D5NS 1,000 ML IV SCH ×2 (10:06→15:53)
--- NOTE | 2018-07-28 10:19 | Infectious Diseases Prog Note ---
Assessment/Plan Assessment/Plan Assessment: Sepsis- 2ry to Liver abscess vs malignancy; now bacteremic -07/26 Bcx 04/06 GNR -CT abd/p w/ : Multifocal liver hypodensities suspicious for abscess. Please correlate clinically. Differential diagnosis includes metastatic neoplasm. Portal vein thrombosis. 3 cm hypodensity in the spleen nonspecific. This could be a mass or abscess. Left renal cysts. Minimal free fluid. Diverticulosis of the colon.Posterior basilar atelectasis versus pneumonia.Gallbladder is contracted. -CT abd/p wo: Limited assessment of the GI tract, due to lack of enteric contrast administration. Trace free intraperitoneal fluid in the pelvis. No acute abdominal process otherwise Trace bilateral pleural effusions. Nonspecific mild thickening of Gerota's fascia. Multiple faint and ill-defined liver masses, not well demonstrated due to lack of IV contrast administration. These mostly appear to be demonstrate fluid attenuation, but are not well enough demonstrated to state for certain. Further evaluation with contrast CT if not contraindicated and ultrasound recommended Bulky pancreatic head, without definite discrete mass. Likewise, further evaluation with contrast CT would be useful to evaluate for possible underlying mass. Gallbladder is nondistended, but this wall appears somewhat edematous. Consider further evaluation with ultrasound if there is clinical suspicion for acute cholecystitis or gallstone disease -u/a wbc 0-2, nit neg, leuk +1 Low grade fever; improving Leukocytosis; persistent -CXR: Retrocardiac atelectasis. No acute process otherwise Portal Hypertension w/ esophageal varices POrtal vein thrombosis -07/27 SP EGD/COlo: 1. Esophageal varices, grade 2 four columns. 2. Portal hypertensive gastropathy. 3. Multiple gastric erosions and 1 gastric ulceration. 4. Duodenal atrophy. 5. Internal and external hemorrhoids. 6. Diverticulosis. 7. Two colonic polyps, removed, see above for details. Elevated LFTs; improving -Abd US: Portal vein thrombosis with cavernous transformation.Abnormal liver. Please refer to the CT report.Poor evaluation of the spleen not well seen on this examination.Marked wall thickening of the gallbladder.Left renal cyst -acute hep panel, HIV ab sc neg HTN arthritis Plan: -Continue empiric Cefepime #3 and add Flagyl #3 for probable liver abscess -low threshold to switch to Meropenem if decompensates -07/26 SP IV Vancomycin #1, Zosyn x1 -repeat 2 sets Bcx -CT guided liver abscess drainage -send fluid for cytology, and cultures (AFB, Fungal, bacterial) -f/u cx -Monitor CBC/CMP, temperatures -aspiration precautions -GI f/u Thank you for this consultation. Will continue to follow along with you. Discussed with RN. Subjective Allergies: Coded Allergies: No Known Allergies (Unverified , 07/26/18) Subjective afebrile in ~48hrs wbc remains at 17-18 now bacteremic Objective Vital Signs Last 24 Hour Vital Signs Date Time Temp Pulse Resp B/P (MAP) Pulse Ox O2 Delivery O2 Flow Rate FiO2 07/28/18 09:22 97.6 07/28/18 08:15 Nasal Cannula 2.0 07/28/18 08:00 98.0 87 20 105/57 (73) 100 07/28/18 04:00 97.6 82 18 115/59 (77) 98 07/28/18 00:00 98.6 79 18 108/55 (72) 96 07/27/18 21:56 Nasal Cannula 2.0 28 07/27/18 21:56 96 Nasal Cannula 2.0 28 07/27/18 21:56 86 18 Nasal Cannula 2.0 28 07/27/18 21:00 Nasal Cannula 2.0 07/27/18 20:00 98.3 93 20 125/65 (85) 96 07/27/18 16:00 98.4 95 18 129/40 (69) 95 07/27/18 16:00 89 07/27/18 12:00 88 07/27/18 12:00 98.0 85 20 125/60 (81) 97 07/27/18 10:42 68 22 98 07/27/18 10:24 84 26 105/58 100 Nasal Cannula 3 07/27/18 10:15 97.0 81 27 108/55 100 Nasal Cannula 3 Height (Feet): 5 Height (Inches): 6.00 Weight (Pounds): 180 Objective General Appearance: normal inspection, alert, GCS 15, moderate distress, thin, Chronically Ill Head: atraumatic ENT: normal ENT inspection, hearing grossly normal, normal voice Neck: normal inspection, supple, no bony tend, limited range of motion Respiratory: normal inspection, lungs clear, normal breath sounds, no respiratory distress, no retraction Cardiovascular #1: regular rate, rhythm, no edema Gastrointestinal: normal inspection, normal bowel sounds, non tender, soft, no guarding, no hernia Genitourinary: no CVA tenderness Musculoskeletal: normal inspection, back normal, decreased range of motion Neurologic: normal inspection, alert, responsive, speech normal Psychiatric: normal inspection, judgement/insight normal, mood/affect normal Skin: normal inspection, normal color, no rash Microbiology Date/Time Source Procedure Growth Status 07/26/18 07:02 Blood Blood Culture - Preliminary Resulted 07/26/18 06:58 Blood Blood Culture - Preliminary NO GROWTH AFTER 24 HOURS Resulted 07/27/18 13:00 Indwelling Cath Urine Culture - Preliminary NO GROWTH Resulted Laboratory Tests Test 07/27/18 13:00 07/27/18 22:00 07/28/18 07:08 Urine Random Sodium 26 mmol/L (20-110) Urine Color Minerva Urine Appearance Clear Urine pH 5 (4.5-8.0) Urine Specific [place] 1.020 (1.005-1.035) Urine Protein 2+ (NEGATIVE) H Urine Glucose (UA) Negative (NEGATIVE) Urine Ketones 1+ (NEGATIVE) H Urine Blood 1+ (NEGATIVE) H Urine Nitrite Negative (NEGATIVE) Urine Bilirubin Negative (NEGATIVE) Urine Ictotest Negative (NEGATIVE) Urine Urobilinogen Normal MG/DL (0.0-1.0) Urine Leukocyte Esterase 1+ (NEGATIVE) H Urine RBC 2-4 /HPF (0 - 2) H Urine WBC 2-4 /HPF (0 - 2) Urine Squamous Epithelial Cells Many /LPF (NONE/OCC) H Urine Amorphous Sediment Few /LPF (NONE) H Urine Bacteria Few /HPF (NONE) Urine Granular Casts 5-10 /LPF (NONE) H Urine Fine Granular Casts 2-4 /LPF (NONE) H White Blood Count 18.9 K/UL (4.8-10.8) H Red Blood Count 3.59 M/UL (4.20-5.40) L Hemoglobin 10.1 G/DL (12.0-16.0) L Hematocrit 29.8 % (37.0-47.0) L Mean Corpuscular Volume 83 FL (80-99) Mean Corpuscular Hemoglobin 28.1 PG (27.0-31.0) Mean Corpuscular Hemoglobin Concent 33.8 G/DL (32.0-36.0) Red Cell Distribution Width 12.5 % (11.6-14.8) Platelet Count 579 K/UL (150-450) H Mean Platelet Volume 5.8 FL (6.5-10.1) L Neutrophils (%) (Auto) % (45.0-75.0) Lymphocytes (%) (Auto) % (20.0-45.0) Monocytes (%) (Auto) % (1.0-10.0) Eosinophils (%) (Auto) % (0.0-3.0) Basophils (%) (Auto) % (0.0-2.0) Differential Total Cells Counted 100 Neutrophils % (Manual) 66 % (45-75) Lymphocytes % (Manual) 12 % (20-45) L Monocytes % (Manual) 1 % (1-10) Eosinophils % (Manual) 0 % (0-3) Basophils % (Manual) 0 % (0-2) Band Neutrophils 21 % (0-8) H Platelet Estimate Increased H Platelet Morphology Normal Red Blood Cell Morphology Normal Erythrocyte Sedimentation Rate 113 MM/HR (0-30) H Prothrombin Time 13.1 SEC (9.30-11.50) H Prothromb Time International Ratio 1.3 (0.9-1.1) H Sodium Level 135 MMOL/L (136-145) L Potassium Level 4.3 MMOL/L (3.5-5.1) Chloride Level 103 MMOL/L (98-107) Carbon Dioxide Level 21 MMOL/L (21-32) Anion Gap 11 mmol/L (5-15) Blood Urea Nitrogen 10 mg/dL (7-18) Creatinine 1.0 MG/DL (0.55-1.30) Estimat Glomerular Filtration Rate 54.8 mL/min (>60) Glucose Level 106 MG/DL (74-106) Hemoglobin A1c 6.7 % (4.3-6.0) H Uric Acid 4.1 MG/DL (2.6-7.2) Calcium Level 8.3 MG/DL (8.5-10.1) L Phosphorus Level 4.1 MG/DL (2.5-4.9) Ferritin 1489 NG/ML (8-388) H Total Bilirubin 0.7 MG/DL (0.2-1.0) Gamma Glutamyl Transpeptidase 203 U/L (5-85) H Aspartate Amino Transf (AST/SGOT) 73 U/L (15-37) H Alanine Aminotransferase (ALT/SGPT) 89 U/L (12-78) H Alkaline Phosphatase 356 U/L (46-116) H Ammonia 29 umol/L (11-32) C-Reactive Protein, Quantitative 42.6 mg/dL (0.00-0.90) H Pro-B-Type Natriuretic Peptide 849 pg/mL (0-125) H Total Protein 6.5 G/DL (6.4-8.2) Albumin 1.3 G/DL (3.4-5.0) L Globulin 5.2 g/dL Albumin/Globulin Ratio 0.2 (1.0-2.7) L Triglycerides Level 56 MG/DL (30-150) Cholesterol Level 67 MG/DL (< 200) LDL Cholesterol 30 mg/dL (<100) HDL Cholesterol 23 MG/DL (40-60) L Cholesterol/HDL Ratio 2.9 (3.3-4.4) L Alpha Fetoprotein Pending HIV (1&2) Antibody Rapid Negative (NEGATIVE) Current Medications Medications (Trade) Dose Ordered Sig/Jose Route PRN Reason Start Time Stop Time Status Last Admin Dose Admin Acetaminophen (Tylenol) 650 mg Q4H PRN ORAL fever 07/27/18 18:49 08/25/18 18:48 07/28/18 08:52 Albuterol/ Ipratropium (Albuterol/ Ipratropium) 3 ml Q4H PRN HHN Shortness of Breath 07/27/18 18:49 07/31/18 18:48 Cefepime HCl 2 gm/ Dextrose 110 ml @ 220 mls/hr Q24H IV 07/28/18 12:00 08/02/18 11:59 Dextrose/Sodium Chloride 1,000 ml @ 50 mls/hr Q20H IV 07/27/18 20:00 08/26/18 19:59 07/28/18 10:06 Heparin Sodium (Porcine) (Heparin 5000 units/ml) 5,000 units EVERY 12 HOURS SUBQ 07/27/18 21:00 08/25/18 20:59 07/28/18 08:37 Iron Sucrose 100 mg/Sodium Chloride 60 ml @ 240 mls/hr BEDTIME IV 07/27/18 21:00 07/31/18 21:14 07/27/18 21:07 Metronidazole 100 ml @ 100 mls/hr Q8HR IVPB 07/27/18 22:00 08/02/18 14:59 07/28/18 06:43 Morphine Sulfate (Morphine Sulfate) 2 mg Q4H PRN IVP Moderate Pain (Pain Scale 4-6) 07/27/18 18:49 08/02/18 18:48 Ondansetron HCl (Zofran) 4 mg Q6H PRN IVP Nausea & Vomiting 07/27/18 18:49 08/25/18 18:48 Pantoprazole (Protonix) 40 mg DAILY ORAL 07/28/18 09:00 08/27/18 08:59 07/28/18 08:33 Phenazopyridine HCl (Pyridium) 100 mg DAILYPRN PRN ORAL dysuria 07/27/18 18:50 08/26/18 18:49 Polyethylene Glycol (Miralax) 17 gm DAILYPRN PRN ORAL Constipation 07/27/18 18:50 08/26/18 18:49 Temazepam (Restoril) 15 mg HSPRN PRN ORAL Insomnia 07/27/18 21:00 08/03/18 20:59 Ebonie Milan M.D. Jul 28, 2018 10:19
--- NOTE | 2018-07-28 11:07 | Pulmonology Progress Note ---
Assessment/Plan Problems: (1) Mass of multiple sites of liver (2) Sepsis (3) Intractable nausea and vomiting (4) Anemia (5) History of hypertension (6) UTI (urinary tract infection) (7) Esophageal varices Assessment/Plan CT guided drainage of liver ?abscess f/u WBC f/u EGD and colonoscopy results f/u tumor markers on Venofer check urine cultures dvt prophylaxis. Subjective Constitutional: Reports: no symptoms HEENT: Repors: no symptoms Allergies: Coded Allergies: No Known Allergies (Unverified , 07/26/18) Objective Last 24 Hour Vital Signs Date Time Temp Pulse Resp B/P (MAP) Pulse Ox O2 Delivery O2 Flow Rate FiO2 07/28/18 09:22 97.6 07/28/18 08:15 Nasal Cannula 2.0 07/28/18 08:00 98.0 87 20 105/57 (73) 100 07/28/18 07:15 80 16 Nasal Cannula 2.0 28 07/28/18 07:15 98 Nasal Cannula 2.0 28 07/28/18 07:15 Nasal Cannula 2.0 28 07/28/18 04:00 97.6 82 18 115/59 (77) 98 07/28/18 00:00 98.6 79 18 108/55 (72) 96 07/27/18 21:56 Nasal Cannula 2.0 28 07/27/18 21:56 96 Nasal Cannula 2.0 28 07/27/18 21:56 86 18 Nasal Cannula 2.0 28 07/27/18 21:00 Nasal Cannula 2.0 07/27/18 20:00 98.3 93 20 125/65 (85) 96 07/27/18 16:00 98.4 95 18 129/40 (69) 95 07/27/18 16:00 89 07/27/18 12:00 88 07/27/18 12:00 98.0 85 20 125/60 (81) 97 Intake and Output 07/27/18 07/28/18 19:00 07:00 Intake Total 1175 ml 340 ml Output Total 600 ml Balance 575 ml 340 ml Intake Oral 240 ml IV Total 935 ml 340 ml Output Urine Total 600 ml Estimated Blood Loss 0 ml # Voids 5 # Bowel Movements 2 4 Objective General Appearance: WD/WN Lines, tubes and drains: peripheral HEENT: normocephalic, atraumatic Neck: non-tender, normal alignment Respiratory/Chest: lungs clear, normal breath sounds Breasts: no masses Cardiovascular/Chest: normal peripheral pulses, normal rate Abdomen: normal bowel sounds Genitourinary/Rectal: normal genital exam Extremities: normal range of motion Skin Exam: normal pigmentation 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 Microbiology Date/Time Source Procedure Growth Status 07/26/18 07:02 Blood Blood Culture - Preliminary Resulted 07/26/18 06:58 Blood Blood Culture - Preliminary NO GROWTH AFTER 24 HOURS Resulted 07/27/18 13:00 Indwelling Cath Urine Culture - Preliminary NO GROWTH Resulted Laboratory Tests 07/27/18 13:00: Urine Random Sodium 26 07/27/18 22:00: Urine Color Minerva, Urine Appearance Clear, Urine pH 5, Urine Specific [place] 1.020, Urine Protein 2+H, Urine Glucose (UA) Negative, Urine Ketones 1+H, Urine Blood 1+H, Urine Nitrite Negative, Urine Bilirubin Negative, Urine Ictotest Negative, Urine Urobilinogen Normal, Urine Leukocyte Esterase 1+H, Urine RBC 2- 4H, Urine WBC 2-4, Urine Squamous Epithelial Cells ManyH, Urine Amorphous Sediment FewH, Urine Bacteria Few, Urine Granular Casts 5-10H, Urine Fine Granular Casts 2-4H 07/28/18 07:08: White Blood Count 18.9H, Red Blood Count 3.59L, Hemoglobin 10.1L, Hematocrit 29.8L, Mean Corpuscular Volume 83, Mean Corpuscular Hemoglobin 28.1, Mean Corpuscular Hemoglobin Concent 33.8, Red Cell Distribution Width 12.5, Platelet Count 579H, Mean Platelet Volume 5.8L, Neutrophils (%) (Auto) , Lymphocytes (%) (Auto) , Monocytes (%) (Auto) , Eosinophils (%) (Auto) , Basophils (%) (Auto) , Differential Total Cells Counted 100, Neutrophils % (Manual) 66, Lymphocytes % ( Manual) 12L, Monocytes % (Manual) 1, Eosinophils % (Manual) 0, Basophils % ( Manual) 0, Band Neutrophils 21H, Platelet Estimate IncreasedH, Platelet Morphology Normal, Red Blood Cell Morphology Normal, Erythrocyte Sedimentation Rate 113H, Prothrombin Time 13.1H, Prothromb Time International Ratio 1.3H, Sodium Level 135L, Potassium Level 4.3, Chloride Level 103, Carbon Dioxide Level 21, Anion Gap 11, Blood Urea Nitrogen 10, Creatinine 1.0, Estimat Glomerular Filtration Rate 54.8, Glucose Level 106, Hemoglobin A1c 6.7H, Uric Acid 4.1, Calcium Level 8.3L, Phosphorus Level 4.1, Ferritin 1489H, Total Bilirubin 0.7, Gamma Glutamyl Transpeptidase 203H, Aspartate Amino Transf (AST/ SGOT) 73H, Alanine Aminotransferase (ALT/SGPT) 89H, Alkaline Phosphatase 356H, Ammonia 29, C-Reactive Protein, Quantitative 42.6H, Pro-B-Type Natriuretic Peptide 849H, Total Protein 6.5, Albumin 1.3L, Globulin 5.2, Albumin/Globulin Ratio 0.2L, Triglycerides Level 56, Cholesterol Level 67, LDL Cholesterol 30, HDL Cholesterol 23L, Cholesterol/HDL Ratio 2.9L, Alpha Fetoprotein [Pending], HIV (1&2) Antibody Rapid Negative Current Medications Medications (Trade) Dose Ordered Sig/Jose Route PRN Reason Start Time Stop Time Status Last Admin Dose Admin Acetaminophen (Tylenol) 650 mg Q4H PRN ORAL fever 07/27/18 18:49 08/25/18 18:48 07/28/18 08:52 Albuterol/ Ipratropium (Albuterol/ Ipratropium) 3 ml Q4H PRN HHN Shortness of Breath 07/27/18 18:49 07/31/18 18:48 Cefepime HCl 2 gm/ Dextrose 110 ml @ 220 mls/hr Q24H IV 07/28/18 12:00 08/02/18 11:59 Dextrose/Sodium Chloride 1,000 ml @ 50 mls/hr Q20H IV 07/27/18 20:00 08/26/18 19:59 07/28/18 10:06 Heparin Sodium (Porcine) (Heparin 5000 units/ml) 5,000 units EVERY 12 HOURS SUBQ 07/27/18 21:00 08/25/18 20:59 07/28/18 08:37 Iron Sucrose 100 mg/Sodium Chloride 60 ml @ 240 mls/hr BEDTIME IV 07/27/18 21:00 07/31/18 21:14 07/27/18 21:07 Metronidazole 100 ml @ 100 mls/hr Q8HR IVPB 07/27/18 22:00 08/02/18 14:59 07/28/18 06:43 Morphine Sulfate (Morphine Sulfate) 2 mg Q4H PRN IVP Moderate Pain (Pain Scale 4-6) 07/27/18 18:49 08/02/18 18:48 Ondansetron HCl (Zofran) 4 mg Q6H PRN IVP Nausea & Vomiting 07/27/18 18:49 08/25/18 18:48 Pantoprazole (Protonix) 40 mg DAILY ORAL 07/28/18 09:00 08/27/18 08:59 07/28/18 08:33 Phenazopyridine HCl (Pyridium) 100 mg DAILYPRN PRN ORAL dysuria 07/27/18 18:50 08/26/18 18:49 Polyethylene Glycol (Miralax) 17 gm DAILYPRN PRN ORAL Constipation 07/27/18 18:50 08/26/18 18:49 Temazepam (Restoril) 15 mg HSPRN PRN ORAL Insomnia 07/27/18 21:00 08/03/18 20:59 Kirsten Leonard MD Jul 28, 2018 11:07
[2018-07-28] MEDS: Cefepime HCl 2 GM in D5W 110 ML IV SCH (11:54)
[2018-07-28 12:00] VITALS: BP 136/84
--- NOTE | 2018-07-28 12:14 | NUR ---
NURSE NOTES: DR Yanci HENDRIX CALLED RE PT'S [facility]. LEFT MESSAGE TO RETURN CALL.
[2018-07-28] MEDS ORDERED: Isovue-300 100ml vial INJ PRN (12:30)
--- NOTE | 2018-07-28 15:28 | Nephrology Progress Note ---
Assessment/Plan Problem List: (1) Hyponatremia (2) Hypoalbuminemia (3) History of hypertension (4) Anemia (5) Intractable nausea and vomiting (6) Mass of multiple sites of liver Assessment Proteinuria and HypoAlbuminemia: Etiology ? HypoNatremia , likely depletional Liver disease, Mass, Abcess... other conditions: (1) Intractable nausea and vomiting, abdominal pain , diarrhea (2) Sepsis, leukocytosis (3) Anemia (4) History of hypertension (5) UTI (urinary tract infection) Plan GI fofana urine studies Anemia fofana monitor renal parameters and LFTs Keep BP in check CT: Multifocal liver hypodensities suspicious for abscess. Differential diagnosis includes metastatic neoplasm. Portal vein thrombosis. 3 cm hypodensity in the spleen nonspecific. This could be a mass or abscess. Left renal cysts. Minimal free fluid. Diverticulosis of the colon. Posterior basilar atelectasis versus pneumonia. Subjective ROS Limited/Unobtainable: No Constitutional: Reports: malaise, weakness Objective Objective Last 24 Hour Vital Signs Date Time Temp Pulse Resp B/P (MAP) Pulse Ox O2 Delivery O2 Flow Rate FiO2 07/28/18 12:00 97.8 92 20 136/84 (101) 98 07/28/18 09:22 97.6 07/28/18 08:15 Nasal Cannula 2.0 07/28/18 08:00 98.0 87 20 105/57 (73) 100 07/28/18 07:15 80 16 Nasal Cannula 2.0 28 07/28/18 07:15 98 Nasal Cannula 2.0 28 07/28/18 07:15 Nasal Cannula 2.0 28 07/28/18 04:00 97.6 82 18 115/59 (77) 98 07/28/18 00:00 98.6 79 18 108/55 (72) 96 07/27/18 21:56 Nasal Cannula 2.0 28 07/27/18 21:56 96 Nasal Cannula 2.0 28 07/27/18 21:56 86 18 Nasal Cannula 2.0 28 07/27/18 21:00 Nasal Cannula 2.0 07/27/18 20:00 98.3 93 20 125/65 (85) 96 07/27/18 16:00 98.4 95 18 129/40 (69) 95 07/27/18 16:00 89 Intake and Output 07/27/18 07/28/18 19:00 07:00 Intake Total 1175 ml 340 ml Output Total 600 ml Balance 575 ml 340 ml Intake Oral 240 ml IV Total 935 ml 340 ml Output Urine Total 600 ml Estimated Blood Loss 0 ml # Voids 5 # Bowel Movements 2 4 Laboratory Tests 07/27/18 22:00: Urine Color Minerva, Urine Appearance Clear, Urine pH 5, Urine Specific [place] 1.020, Urine Protein 2+H, Urine Glucose (UA) Negative, Urine Ketones 1+H, Urine Blood 1+H, Urine Nitrite Negative, Urine Bilirubin Negative, Urine Ictotest Negative, Urine Urobilinogen Normal, Urine Leukocyte Esterase 1+H, Urine RBC 2- 4H, Urine WBC 2-4, Urine Squamous Epithelial Cells ManyH, Urine Amorphous Sediment FewH, Urine Bacteria Few, Urine Granular Casts 5-10H, Urine Fine Granular Casts 2-4H 07/28/18 07:08: White Blood Count 18.9H, Red Blood Count 3.59L, Hemoglobin 10.1L, Hematocrit 29.8L, Mean Corpuscular Volume 83, Mean Corpuscular Hemoglobin 28.1, Mean Corpuscular Hemoglobin Concent 33.8, Red Cell Distribution Width 12.5, Platelet Count 579H, Mean Platelet Volume 5.8L, Neutrophils (%) (Auto) , Lymphocytes (%) (Auto) , Monocytes (%) (Auto) , Eosinophils (%) (Auto) , Basophils (%) (Auto) , Differential Total Cells Counted 100, Neutrophils % (Manual) 66, Lymphocytes % ( Manual) 12L, Monocytes % (Manual) 1, Eosinophils % (Manual) 0, Basophils % ( Manual) 0, Band Neutrophils 21H, Platelet Estimate IncreasedH, Platelet Morphology Normal, Red Blood Cell Morphology Normal, Erythrocyte Sedimentation Rate 113H, Prothrombin Time 13.1H, Prothromb Time International Ratio 1.3H, Sodium Level 135L, Potassium Level 4.3, Chloride Level 103, Carbon Dioxide Level 21, Anion Gap 11, Blood Urea Nitrogen 10, Creatinine 1.0, Estimat Glomerular Filtration Rate 54.8, Glucose Level 106, Hemoglobin A1c 6.7H, Uric Acid 4.1, Calcium Level 8.3L, Phosphorus Level 4.1, Ferritin 1489H, Total Bilirubin 0.7, Gamma Glutamyl Transpeptidase 203H, Aspartate Amino Transf (AST/ SGOT) 73H, Alanine Aminotransferase (ALT/SGPT) 89H, Alkaline Phosphatase 356H, Ammonia 29, C-Reactive Protein, Quantitative 42.6H, Pro-B-Type Natriuretic Peptide 849H, Total Protein 6.5, Albumin 1.3L, Globulin 5.2, Albumin/Globulin Ratio 0.2L, Triglycerides Level 56, Cholesterol Level 67, LDL Cholesterol 30, HDL Cholesterol 23L, Cholesterol/HDL Ratio 2.9L, Alpha Fetoprotein [Pending], HIV (1&2) Antibody Rapid Negative Height (Feet): 5 Height (Inches): 6.00 Weight (Pounds): 180 General Appearance: no apparent distress, lethargic Cardiovascular: tachycardia Respiratory/Chest: decreased breath sounds Abdomen: distended Luis E Deng MD Jul 28, 2018 15:28
[2018-07-28 16:00] VITALS: BP 116/62
--- NOTE | 2018-07-28 16:09 | Internal Med Progress Note ---
Subjective Date of Service: Jul 28, 2018 Physician Name Tobias Mauricio Attending Physician Eh Ann MD Current Medications Medications (Trade) Dose Ordered Sig/Jose Route PRN Reason Start Time Stop Time Status Last Admin Dose Admin Acetaminophen (Tylenol) 650 mg Q4H PRN ORAL fever 07/27/18 18:49 08/25/18 18:48 07/28/18 08:52 Albuterol/ Ipratropium (Albuterol/ Ipratropium) 3 ml Q4H PRN HHN Shortness of Breath 07/27/18 18:49 07/31/18 18:48 Cefepime HCl 2 gm/ Dextrose 110 ml @ 220 mls/hr Q24H IV 07/28/18 12:00 08/02/18 11:59 07/28/18 11:54 Dextrose/Sodium Chloride 1,000 ml @ 50 mls/hr Q20H IV 07/27/18 20:00 08/26/18 19:59 07/28/18 10:06 Heparin Sodium (Porcine) (Heparin 5000 units/ml) 5,000 units EVERY 12 HOURS SUBQ 07/27/18 21:00 08/25/18 20:59 07/28/18 08:37 Iron Sucrose 100 mg/Sodium Chloride 60 ml @ 240 mls/hr BEDTIME IV 07/27/18 21:00 07/31/18 21:14 07/27/18 21:07 Metronidazole 100 ml @ 100 mls/hr Q8HR IVPB 07/27/18 22:00 08/02/18 14:59 07/28/18 14:16 Morphine Sulfate (Morphine Sulfate) 2 mg Q4H PRN IVP Moderate Pain (Pain Scale 4-6) 07/27/18 18:49 08/02/18 18:48 Ondansetron HCl (Zofran) 4 mg Q6H PRN IVP Nausea & Vomiting 07/27/18 18:49 08/25/18 18:48 Pantoprazole (Protonix) 40 mg DAILY ORAL 07/28/18 09:00 08/27/18 08:59 07/28/18 08:33 Phenazopyridine HCl (Pyridium) 100 mg DAILYPRN PRN ORAL dysuria 07/27/18 18:50 08/26/18 18:49 Polyethylene Glycol (Miralax) 17 gm DAILYPRN PRN ORAL Constipation 07/27/18 18:50 08/26/18 18:49 Temazepam (Restoril) 15 mg HSPRN PRN ORAL Insomnia 07/27/18 21:00 08/03/18 20:59 Allergies: Coded Allergies: No Known Allergies (Unverified , 07/26/18) ROS Limited/Unobtainable: No Constitutional: Reports: no symptoms HEENT: Reports: no symptoms Cardiovascular: Reports: no symptoms Respiratory: Reports: no symptoms Gastrointestinal/Abdominal: Reports: no symptoms Genitourinary: Reports: no symptoms Neurologic/Psychiatric: Reports: no symptoms Subjective 68 YO F admitted with nausea, vomiting and diarrhea. Cover for Int med-DR Ann Objective Last Vital Signs Date Time Temp Pulse Resp B/P (MAP) Pulse Ox O2 Delivery O2 Flow Rate FiO2 07/28/18 12:00 97.8 92 20 136/84 (101) 98 07/28/18 08:15 Nasal Cannula 2.0 07/28/18 07:15 28 Laboratory Tests Test 07/27/18 22:00 07/28/18 07:08 Urine Color Minerva Urine Appearance Clear Urine pH 5 (4.5-8.0) Urine Specific [place] 1.020 (1.005-1.035) Urine Protein 2+ (NEGATIVE) H Urine Glucose (UA) Negative (NEGATIVE) Urine Ketones 1+ (NEGATIVE) H Urine Blood 1+ (NEGATIVE) H Urine Nitrite Negative (NEGATIVE) Urine Bilirubin Negative (NEGATIVE) Urine Ictotest Negative (NEGATIVE) Urine Urobilinogen Normal MG/DL (0.0-1.0) Urine Leukocyte Esterase 1+ (NEGATIVE) H Urine RBC 2-4 /HPF (0 - 2) H Urine WBC 2-4 /HPF (0 - 2) Urine Squamous Epithelial Cells Many /LPF (NONE/OCC) H Urine Amorphous Sediment Few /LPF (NONE) H Urine Bacteria Few /HPF (NONE) Urine Granular Casts 5-10 /LPF (NONE) H Urine Fine Granular Casts 2-4 /LPF (NONE) H White Blood Count 18.9 K/UL (4.8-10.8) H Red Blood Count 3.59 M/UL (4.20-5.40) L Hemoglobin 10.1 G/DL (12.0-16.0) L Hematocrit 29.8 % (37.0-47.0) L Mean Corpuscular Volume 83 FL (80-99) Mean Corpuscular Hemoglobin 28.1 PG (27.0-31.0) Mean Corpuscular Hemoglobin Concent 33.8 G/DL (32.0-36.0) Red Cell Distribution Width 12.5 % (11.6-14.8) Platelet Count 579 K/UL (150-450) H Mean Platelet Volume 5.8 FL (6.5-10.1) L Neutrophils (%) (Auto) % (45.0-75.0) Lymphocytes (%) (Auto) % (20.0-45.0) Monocytes (%) (Auto) % (1.0-10.0) Eosinophils (%) (Auto) % (0.0-3.0) Basophils (%) (Auto) % (0.0-2.0) Differential Total Cells Counted 100 Neutrophils % (Manual) 66 % (45-75) Lymphocytes % (Manual) 12 % (20-45) L Monocytes % (Manual) 1 % (1-10) Eosinophils % (Manual) 0 % (0-3) Basophils % (Manual) 0 % (0-2) Band Neutrophils 21 % (0-8) H Platelet Estimate Increased H Platelet Morphology Normal Red Blood Cell Morphology Normal Erythrocyte Sedimentation Rate 113 MM/HR (0-30) H Prothrombin Time 13.1 SEC (9.30-11.50) H Prothromb Time International Ratio 1.3 (0.9-1.1) H Sodium Level 135 MMOL/L (136-145) L Potassium Level 4.3 MMOL/L (3.5-5.1) Chloride Level 103 MMOL/L (98-107) Carbon Dioxide Level 21 MMOL/L (21-32) Anion Gap 11 mmol/L (5-15) Blood Urea Nitrogen 10 mg/dL (7-18) Creatinine 1.0 MG/DL (0.55-1.30) Estimat Glomerular Filtration Rate 54.8 mL/min (>60) Glucose Level 106 MG/DL (74-106) Hemoglobin A1c 6.7 % (4.3-6.0) H Uric Acid 4.1 MG/DL (2.6-7.2) Calcium Level 8.3 MG/DL (8.5-10.1) L Phosphorus Level 4.1 MG/DL (2.5-4.9) Ferritin 1489 NG/ML (8-388) H Total Bilirubin 0.7 MG/DL (0.2-1.0) Gamma Glutamyl Transpeptidase 203 U/L (5-85) H Aspartate Amino Transf (AST/SGOT) 73 U/L (15-37) H Alanine Aminotransferase (ALT/SGPT) 89 U/L (12-78) H Alkaline Phosphatase 356 U/L (46-116) H Ammonia 29 umol/L (11-32) C-Reactive Protein, Quantitative 42.6 mg/dL (0.00-0.90) H Pro-B-Type Natriuretic Peptide 849 pg/mL (0-125) H Total Protein 6.5 G/DL (6.4-8.2) Albumin 1.3 G/DL (3.4-5.0) L Globulin 5.2 g/dL Albumin/Globulin Ratio 0.2 (1.0-2.7) L Triglycerides Level 56 MG/DL (30-150) Cholesterol Level 67 MG/DL (< 200) LDL Cholesterol 30 mg/dL (<100) HDL Cholesterol 23 MG/DL (40-60) L Cholesterol/HDL Ratio 2.9 (3.3-4.4) L Alpha Fetoprotein Pending HIV (1&2) Antibody Rapid Negative (NEGATIVE) Microbiology Date/Time Source Procedure Growth Status 07/26/18 07:02 Blood Blood Culture - Preliminary Resulted 07/26/18 06:58 Blood Blood Culture - Preliminary NO GROWTH AFTER 24 HOURS Resulted 07/27/18 13:00 Indwelling Cath Urine Culture - Preliminary NO GROWTH Resulted Intake and Output 07/27/18 07/28/18 19:00 07:00 Intake Total 1175 ml 340 ml Output Total 600 ml Balance 575 ml 340 ml Intake Oral 240 ml IV Total 935 ml 340 ml Output Urine Total 600 ml Estimated Blood Loss 0 ml # Voids 5 # Bowel Movements 2 4 Objective PHYSICAL EXAMINATION: GENERAL: The patient is well-developed and well-nourished female, in no apparent distress. HEENT: Eyes, pupils are equal and responsive to light and accommodation. Extraocular movements are intact. NECK: Supple without lymphadenopathy. CHEST: Lungs are clear to auscultation bilaterally without wheezes or rales. CARDIOVASCULAR: Tachycardic. Regular rate and rhythm. S1 and S2 are normal without murmurs, rubs, or gallops. ABDOMEN: Soft. Tender to palpation in the left upper quadrant. Positive bowel sounds. No evidence of hepatosplenomegaly. Currently, no rebound or guarding noted. EXTREMITIES: Negative for clubbing, cyanosis, or edema. RECTAL/GENITAL: Refused. NEUROLOGIC: Cranial nerves II through XII are grossly intact without focal deficits. Motor strength is 5/5 bilaterally. Deep tendon reflexes are 2+ plantar. Assessment/Plan Assessment/Plan ASSESSMENT: This is a 68-year-old female. 1. Nausea with vomiting. 2. Diarrhea. 3. Abdominal pain. 4. Generalized weakness. 5. Fever. 6. Liver masses. 7. Elevated liver function tests. 8. Hypertension. 9. Leukocytosis. TREATMENT: 1. Nausea/vomiting/diarrhea/abdominal pain. A Gastroenterology consultation has been obtained with Dr. Sixto Conner. We will follow recommendations of Gastroenterology. 2. Liver masses. These were ill-defined on the CT scan and Gastroenterology consultation has been obtained with Dr. Sixto Conner. A CT scan of the abdomen with contrast is pending. 3. Hypertension. The patient is currently hypotensive. 4. Leukocytosis/fever. An Infectious Disease consultation has been obtained with Dr. Milan. The patient has been placed empirically on intravenous Zosyn, Flagyl, and cefepime. Tobias Mauricio MD Jul 28, 2018 16:09
--- NOTE | 2018-07-28 16:26 | NUR ---
PT Note PT yvrose completed, treatment initiated. Patient was instructed on HEP and proper breathing techniques to minimize her SOB. Patient needs PT services to increase her muscle strength to improve her functional mobility and gait to enable her to return home. Addendum: 07/28/18 at 1626 by JERARDO MOORE PT Amended: Links added.
[2018-07-28] MEDS ORDERED: Tubing IV Secondary IV ONE (17:06)
[2018-07-28] MEDS ORDERED: NS 275ml ONE (17:06)
--- NOTE | 2018-07-28 18:59 | NUR ---
NURSE NOTES: RESTING IN BED. NO APPRENT DISTRESS.
--- NOTE | 2018-07-28 19:26 | NUR ---
HAND-OFF: Report given to Trinidad YOUNG RN.
[2018-07-28 20:00] VITALS: BP 130/68
[2018-07-28] MEDS: Iron Sucrose 100 MG in NS 55 ML IV SCH (20:23)
[2018-07-29] VITALS: BP 146/75
[2018-07-29 04:00] VITALS: BP 119/65
[2018-07-29 07:01] LABS: HEMATOCRIT 27.9 % (37.0-47.0); HEMOGLOBIN 9.3 G/DL (12.0-16.0); MEAN CORPUSCULAR VOLUME 84 FL (80-99); PLATELET COUNT 575 K/UL (150-450); RED BLOOD COUNT 3.32 M/UL (4.20-5.40); RED CELL DISTRIBUTION WIDTH 12.7 % (11.6-14.8); WHITE BLOOD COUNT 19.8 K/UL (4.8-10.8)
[2018-07-29 07:07] LABS: ALANINE AMINOTRANSFERASE 63 U/L (12-78); ALBUMIN 1.2 G/DL (3.4-5.0); ALBUMIN/GLOBULIN RATIO 0.2 (1.0-2.7); ALKALINE PHOSPHATASE 339 U/L (46-116); ANION GAP 7 mmol/L (5-15); ASPARTATE AMINO TRANSFERASE 42 U/L (15-37); BILIRUBIN,TOTAL 0.4 MG/DL (0.2-1.0); BLOOD UREA NITROGEN 10 mg/dL (7-18); CALCIUM 7.9 MG/DL (8.5-10.1); CARBON DIOXIDE 24 MMOL/L (21-32); CHLORIDE 105 MMOL/L (98-107); CREATININE 1.1 MG/DL (0.55-1.30); POTASSIUM 4.4 MMOL/L (3.5-5.1); SODIUM 136 MMOL/L (136-145)
--- NOTE | 2018-07-29 07:29 | General Progress Note ---
Assessment/Plan Problem List: (1) Iron deficiency anemia ICD Codes: D50.9 - Iron deficiency anemia, unspecified SNOMED: 00398005 (2) Diarrhea ICD Codes: R19.7 - Diarrhea, unspecified SNOMED: 38858425 (3) Diverticulosis ICD Codes: K57.90 - Diverticulosis of intestine, part unspecified, without perforation or abscess without bleeding SNOMED: 265999336 (4) Abdominal pain ICD Codes: R10.9 - Unspecified abdominal pain SNOMED: 80698457 (5) Anemia ICD Codes: D64.9 - Anemia, unspecified SNOMED: 053703638 (6) Portal vein thrombosis ICD Codes: I81 - Portal vein thrombosis SNOMED: 71691185 (7) Esophageal varices ICD Codes: I85.00 - Esophageal varices without bleeding SNOMED: 15338760 (8) Gastric erosion ICD Codes: K25.9 - Gastric ulcer, unspecified as acute or chronic, without hemorrhage or perforation SNOMED: 280900449 Assessment/Plan: CT and us reviewed SUMMARY OF FINDINGS: EGD and colonoscopy 1. Esophageal varices, grade 2 four columns. 2. Portal hypertensive gastropathy. 3. Multiple gastric erosions and 1 gastric ulceration. 4. Duodenal atrophy. 5. Internal and external hemorrhoids. 6. Diverticulosis. 7. Two colonic polyps, removed, see above for details ppi fu tumor markers>>>> normal CEA fu ID recs>>> on abx fu path ? need for anticoagulation repeat labs Subjective ROS Limited/Unobtainable: Yes Allergies: Coded Allergies: No Known Allergies (Unverified , 07/26/18) Objective Last 24 Hour Vital Signs Date Time Temp Pulse Resp B/P (MAP) Pulse Ox O2 Delivery O2 Flow Rate FiO2 07/29/18 07:13 97 Nasal Cannula 2.0 28 07/29/18 07:13 91 16 Nasal Cannula 2.0 28 07/29/18 07:13 Nasal Cannula 2.0 28 07/29/18 04:00 97.4 87 18 119/65 (83) 99 07/29/18 00:00 98.1 91 18 146/75 (98) 98 07/28/18 21:00 Nasal Cannula 2.0 07/28/18 20:00 98.3 91 18 130/68 (88) 100 07/28/18 19:42 98 Nasal Cannula 2.0 28 07/28/18 19:42 91 16 Nasal Cannula 2.0 28 07/28/18 19:42 Nasal Cannula 2.0 28 07/28/18 16:00 97.6 89 20 116/62 (80) 99 07/28/18 12:00 97.8 92 20 136/84 (101) 98 07/28/18 09:22 97.6 07/28/18 08:15 Nasal Cannula 2.0 07/28/18 08:00 98.0 87 20 105/57 (73) 100 Intake and Output 07/28/18 07/29/18 19:00 07:00 Intake Total 1190 ml 640 ml Output Total 550 ml Balance 640 ml 640 ml Intake Oral 480 ml IV Total 710 ml 640 ml Stool Total 550 ml # Voids 2 # Bowel Movements 1 Laboratory Tests 07/28/18 19:30: Stool Occult Blood [Pending] 07/29/18 05:00: White Blood Count 19.8H, Red Blood Count 3.32L, Hemoglobin 9.3L, Hematocrit 27.9L, Mean Corpuscular Volume 84, Mean Corpuscular Hemoglobin 28.0, Mean Corpuscular Hemoglobin Concent 33.3, Red Cell Distribution Width 12.7, Platelet Count 575H, Mean Platelet Volume 5.7L, Neutrophils (%) (Auto) , Lymphocytes (%) (Auto) , Monocytes (%) (Auto) , Eosinophils (%) (Auto) , Basophils (%) (Auto) , Neutrophils % (Manual) [Pending], Lymphocytes % (Manual) [Pending], Platelet Estimate [Pending], Platelet Morphology [Pending], Sodium Level 136, Potassium Level 4.4, Chloride Level 105, Carbon Dioxide Level 24, Anion Gap 7, Blood Urea Nitrogen 10, Creatinine 1.1, Estimat Glomerular Filtration Rate 49.1, Glucose Level 111H, Calcium Level 7.9L, Total Bilirubin 0.4, Aspartate Amino Transf (AST /SGOT) 42H, Alanine Aminotransferase (ALT/SGPT) 63, Alkaline Phosphatase 339H, Total Protein 6.0L, Albumin 1.2L, Globulin 4.8, Albumin/Globulin Ratio 0.2L Height (Feet): 5 Height (Inches): 6.00 Weight (Pounds): 180 General Appearance: alert EENT: normal ENT inspection Neck: supple Cardiovascular: normal rate Respiratory/Chest: lungs clear Abdomen: normal bowel sounds, non tender, soft Extremities: non-tender Sixto Conner MD Jul 29, 2018 07:29
--- NOTE | 2018-07-29 07:50 | NUR ---
NURSE NOTES: Received pt with stable condition. Breathing regular and unlabored. denies pain at this time. Bed in lowest position. call light within reach at all time. will continue to monitor
--- NOTE | 2018-07-29 07:52 | NUR ---
HAND-OFF: Report given to SCOTT Tineo.
[2018-07-29 08:00] VITALS: BP 136/70
[2018-07-29] MEDS ORDERED: NS 275ml ONE (08:40)
[2018-07-29] MEDS: Heparin 5000 units/ml inj SUBQ SCH ×2 (09:01→21:08)
[2018-07-29] MEDS ORDERED: fentaNYL 100 mcg/2 mL IV ONE (09:17)
[2018-07-29] MEDS ORDERED: Midazolam 2mg/2ml Inj ONE (09:17)
[2018-07-29] MEDS: D5NS 1,000 ML IV SCH (11:52)
[2018-07-29] MEDS: Cefepime HCl 2 GM in D5W 110 ML IV SCH (11:52)
[2018-07-29 12:00] VITALS: BP 129/64
--- NOTE | 2018-07-29 14:11 | NUR ---
PT Note Attempted t see patient for treatment bu patient refused. "I'm trying to get some sleep. I don't want to have any therapy now."
--- NOTE | 2018-07-29 14:43 | Pulmonology Progress Note ---
Assessment/Plan Problems: (1) Mass of multiple sites of liver (2) Sepsis (3) Intractable nausea and vomiting (4) Anemia (5) History of hypertension (6) UTI (urinary tract infection) (7) Esophageal varices Assessment/Plan CT guided drainage of liver ?abscess f/u WBC f/u EGD and colonoscopy results f/u tumor markers on Venofer check urine cultures dvt prophylaxis. Subjective ROS Limited/Unobtainable: No Constitutional: Reports: no symptoms HEENT: Repors: no symptoms Respiratory: Reports: no symptoms Allergies: Coded Allergies: No Known Allergies (Unverified , 07/26/18) Objective Last 24 Hour Vital Signs Date Time Temp Pulse Resp B/P (MAP) Pulse Ox O2 Delivery O2 Flow Rate FiO2 07/29/18 12:51 98.2 07/29/18 12:00 100.2 96 18 129/64 (85) 98 07/29/18 09:15 Nasal Cannula 2.0 07/29/18 08:00 98.2 92 18 136/70 (92) 98 07/29/18 07:13 97 Nasal Cannula 2.0 28 07/29/18 07:13 91 16 Nasal Cannula 2.0 28 07/29/18 07:13 Nasal Cannula 2.0 28 07/29/18 04:00 97.4 87 18 119/65 (83) 99 07/29/18 00:00 98.1 91 18 146/75 (98) 98 07/28/18 21:00 Nasal Cannula 2.0 07/28/18 20:00 98.3 91 18 130/68 (88) 100 07/28/18 19:42 98 Nasal Cannula 2.0 28 07/28/18 19:42 91 16 Nasal Cannula 2.0 28 07/28/18 19:42 Nasal Cannula 2.0 28 07/28/18 16:00 97.6 89 20 116/62 (80) 99 Intake and Output 07/28/18 07/29/18 19:00 07:00 Intake Total 1190 ml 640 ml Output Total 550 ml Balance 640 ml 640 ml Intake Oral 480 ml IV Total 710 ml 640 ml Stool Total 550 ml # Voids 2 # Bowel Movements 1 Objective General Appearance: WD/WN Lines, tubes and drains: peripheral HEENT: normocephalic, atraumatic Neck: non-tender, normal alignment Respiratory/Chest: lungs clear, normal breath sounds Breasts: no masses Cardiovascular/Chest: normal peripheral pulses, normal rate Abdomen: normal bowel sounds Genitourinary/Rectal: normal genital exam Extremities: normal range of motion Skin Exam: normal pigmentation Neurologic: manager private II-XII grossly normal Microbiology Date/Time Source Procedure Growth Status 07/27/18 13:00 Indwelling Cath Urine Culture - Final Mixed Gram Positive Organism Complete Laboratory Tests 07/28/18 19:30: Stool Occult Blood [Pending] 07/29/18 05:00: White Blood Count 19.8H, Red Blood Count 3.32L, Hemoglobin 9.3L, Hematocrit 27.9L, Mean Corpuscular Volume 84, Mean Corpuscular Hemoglobin 28.0, Mean Corpuscular Hemoglobin Concent 33.3, Red Cell Distribution Width 12.7, Platelet Count 575H, Mean Platelet Volume 5.7L, Neutrophils (%) (Auto) , Lymphocytes (%) (Auto) , Monocytes (%) (Auto) , Eosinophils (%) (Auto) , Basophils (%) (Auto) , Differential Total Cells Counted 100, Neutrophils % (Manual) 85H, Lymphocytes % (Manual) 7L, Monocytes % (Manual) 8, Eosinophils % (Manual) 0, Basophils % ( Manual) 0, Band Neutrophils 0, Platelet Estimate IncreasedH, Platelet Morphology Normal, Anisocytosis 1+, Sodium Level 136, Potassium Level 4.4, Chloride Level 105, Carbon Dioxide Level 24, Anion Gap 7, Blood Urea Nitrogen 10 , Creatinine 1.1, Estimat Glomerular Filtration Rate 49.1, Glucose Level 111H, Calcium Level 7.9L, Total Bilirubin 0.4, Aspartate Amino Transf (AST/SGOT) 42H, Alanine Aminotransferase (ALT/SGPT) 63, Alkaline Phosphatase 339H, Total Protein 6.0L, Albumin 1.2L, Globulin 4.8, Albumin/Globulin Ratio 0.2L Current Medications Medications (Trade) Dose Ordered Sig/Jose Route PRN Reason Start Time Stop Time Status Last Admin Dose Admin Acetaminophen (Tylenol) 650 mg Q4H PRN ORAL fever 07/27/18 18:49 08/25/18 18:48 07/29/18 12:21 Albuterol/ Ipratropium (Albuterol/ Ipratropium) 3 ml Q4H PRN HHN Shortness of Breath 07/27/18 18:49 07/31/18 18:48 Cefepime HCl 2 gm/ Dextrose 110 ml @ 220 mls/hr Q24H IV 07/28/18 12:00 08/02/18 11:59 07/29/18 11:52 Dextrose/Sodium Chloride 1,000 ml @ 50 mls/hr Q20H IV 07/27/18 20:00 08/26/18 19:59 07/29/18 11:52 Heparin Sodium (Porcine) (Heparin 5000 units/ml) 5,000 units EVERY 12 HOURS SUBQ 07/27/18 21:00 08/25/18 20:59 07/29/18 09:01 Iron Sucrose 100 mg/Sodium Chloride 60 ml @ 240 mls/hr BEDTIME IV 07/27/18 21:00 07/31/18 21:14 07/28/18 20:23 Metronidazole 100 ml @ 100 mls/hr Q8HR IVPB 07/27/18 22:00 08/02/18 14:59 07/29/18 14:06 Morphine Sulfate (Morphine Sulfate) 2 mg Q4H PRN IVP Moderate Pain (Pain Scale 4-6) 07/27/18 18:49 08/02/18 18:48 Ondansetron HCl (Zofran) 4 mg Q6H PRN IVP Nausea & Vomiting 07/27/18 18:49 08/25/18 18:48 Pantoprazole (Protonix) 40 mg DAILY ORAL 07/28/18 09:00 08/27/18 08:59 07/29/18 08:57 Phenazopyridine HCl (Pyridium) 100 mg DAILYPRN PRN ORAL dysuria 07/27/18 18:50 08/26/18 18:49 Polyethylene Glycol (Miralax) 17 gm DAILYPRN PRN ORAL Constipation 07/27/18 18:50 08/26/18 18:49 Temazepam (Restoril) 15 mg HSPRN PRN ORAL Insomnia 07/27/18 21:00 08/03/18 20:59 Kirsten Leonard MD Jul 29, 2018 14:43
[2018-07-29 16:00] VITALS: BP 152/75
--- NOTE | 2018-07-29 16:20 | Internal Med Progress Note ---
Subjective Date of Service: Jul 29, 2018 Physician Name Tobias Mauricio Attending Physician Eh Ann MD Current Medications Medications (Trade) Dose Ordered Sig/Jose Route PRN Reason Start Time Stop Time Status Last Admin Dose Admin Acetaminophen (Tylenol) 650 mg Q4H PRN ORAL fever 07/27/18 18:49 08/25/18 18:48 07/29/18 12:21 Albuterol/ Ipratropium (Albuterol/ Ipratropium) 3 ml Q4H PRN HHN Shortness of Breath 07/27/18 18:49 07/31/18 18:48 Cefepime HCl 2 gm/ Dextrose 110 ml @ 220 mls/hr Q24H IV 07/28/18 12:00 08/02/18 11:59 07/29/18 11:52 Dextrose/Sodium Chloride 1,000 ml @ 50 mls/hr Q20H IV 07/27/18 20:00 08/26/18 19:59 07/29/18 11:52 Heparin Sodium (Porcine) (Heparin 5000 units/ml) 5,000 units EVERY 12 HOURS SUBQ 07/27/18 21:00 08/25/18 20:59 07/29/18 09:01 Iron Sucrose 100 mg/Sodium Chloride 60 ml @ 240 mls/hr BEDTIME IV 07/27/18 21:00 07/31/18 21:14 07/28/18 20:23 Metronidazole 100 ml @ 100 mls/hr Q8HR IVPB 07/27/18 22:00 08/02/18 14:59 07/29/18 14:06 Morphine Sulfate (Morphine Sulfate) 2 mg Q4H PRN IVP Moderate Pain (Pain Scale 4-6) 07/27/18 18:49 08/02/18 18:48 Ondansetron HCl (Zofran) 4 mg Q6H PRN IVP Nausea & Vomiting 07/27/18 18:49 08/25/18 18:48 Pantoprazole (Protonix) 40 mg DAILY ORAL 07/28/18 09:00 08/27/18 08:59 07/29/18 08:57 Phenazopyridine HCl (Pyridium) 100 mg DAILYPRN PRN ORAL dysuria 07/27/18 18:50 08/26/18 18:49 Polyethylene Glycol (Miralax) 17 gm DAILYPRN PRN ORAL Constipation 07/27/18 18:50 08/26/18 18:49 Temazepam (Restoril) 15 mg HSPRN PRN ORAL Insomnia 07/27/18 21:00 08/03/18 20:59 Allergies: Coded Allergies: No Known Allergies (Unverified , 07/26/18) ROS Limited/Unobtainable: No Constitutional: Reports: no symptoms HEENT: Reports: no symptoms Cardiovascular: Reports: no symptoms Respiratory: Reports: no symptoms Gastrointestinal/Abdominal: Reports: no symptoms Genitourinary: Reports: no symptoms Neurologic/Psychiatric: Reports: no symptoms Subjective 68 YO F admitted with nausea, vomiting and diarrhea. Cover for Int med-DR Ann. S/P endoscopy abd colonoscopy 07/27/18 Objective Last Vital Signs Date Time Temp Pulse Resp B/P (MAP) Pulse Ox O2 Delivery O2 Flow Rate FiO2 07/29/18 12:51 98.2 07/29/18 12:00 96 18 129/64 (85) 98 07/29/18 09:15 Nasal Cannula 2.0 07/29/18 07:13 28 Laboratory Tests Test 07/28/18 19:30 07/29/18 05:00 Stool Occult Blood Pending White Blood Count 19.8 K/UL (4.8-10.8) H Red Blood Count 3.32 M/UL (4.20-5.40) L Hemoglobin 9.3 G/DL (12.0-16.0) L Hematocrit 27.9 % (37.0-47.0) L Mean Corpuscular Volume 84 FL (80-99) Mean Corpuscular Hemoglobin 28.0 PG (27.0-31.0) Mean Corpuscular Hemoglobin Concent 33.3 G/DL (32.0-36.0) Red Cell Distribution Width 12.7 % (11.6-14.8) Platelet Count 575 K/UL (150-450) H Mean Platelet Volume 5.7 FL (6.5-10.1) L Neutrophils (%) (Auto) % (45.0-75.0) Lymphocytes (%) (Auto) % (20.0-45.0) Monocytes (%) (Auto) % (1.0-10.0) Eosinophils (%) (Auto) % (0.0-3.0) Basophils (%) (Auto) % (0.0-2.0) Differential Total Cells Counted 100 Neutrophils % (Manual) 85 % (45-75) H Lymphocytes % (Manual) 7 % (20-45) L Monocytes % (Manual) 8 % (1-10) Eosinophils % (Manual) 0 % (0-3) Basophils % (Manual) 0 % (0-2) Band Neutrophils 0 % (0-8) Platelet Estimate Increased H Platelet Morphology Normal Anisocytosis 1+ Sodium Level 136 MMOL/L (136-145) Potassium Level 4.4 MMOL/L (3.5-5.1) Chloride Level 105 MMOL/L (98-107) Carbon Dioxide Level 24 MMOL/L (21-32) Anion Gap 7 mmol/L (5-15) Blood Urea Nitrogen 10 mg/dL (7-18) Creatinine 1.1 MG/DL (0.55-1.30) Estimat Glomerular Filtration Rate 49.1 mL/min (>60) Glucose Level 111 MG/DL (74-106) H Calcium Level 7.9 MG/DL (8.5-10.1) L Total Bilirubin 0.4 MG/DL (0.2-1.0) Aspartate Amino Transf (AST/SGOT) 42 U/L (15-37) H Alanine Aminotransferase (ALT/SGPT) 63 U/L (12-78) Alkaline Phosphatase 339 U/L (46-116) H Total Protein 6.0 G/DL (6.4-8.2) L Albumin 1.2 G/DL (3.4-5.0) L Globulin 4.8 g/dL Albumin/Globulin Ratio 0.2 (1.0-2.7) L Microbiology Date/Time Source Procedure Growth Status 07/27/18 13:00 Indwelling Cath Urine Culture - Final Mixed Gram Positive Organism Complete Intake and Output 07/28/18 07/29/18 19:00 07:00 Intake Total 1190 ml 640 ml Output Total 550 ml Balance 640 ml 640 ml Intake Oral 480 ml IV Total 710 ml 640 ml Stool Total 550 ml # Voids 2 # Bowel Movements 1 Objective PHYSICAL EXAMINATION: GENERAL: The patient is well-developed and well-nourished female, in no apparent distress. HEENT: Eyes, pupils are equal and responsive to light and accommodation. Extraocular movements are intact. NECK: Supple without lymphadenopathy. CHEST: Lungs are clear to auscultation bilaterally without wheezes or rales. CARDIOVASCULAR: Tachycardic. Regular rate and rhythm. S1 and S2 are normal without murmurs, rubs, or gallops. ABDOMEN: Soft. Tender to palpation in the left upper quadrant. Positive bowel sounds. No evidence of hepatosplenomegaly. Currently, no rebound or guarding noted. EXTREMITIES: Negative for clubbing, cyanosis, or edema. RECTAL/GENITAL: Refused. NEUROLOGIC: Cranial nerves II through XII are grossly intact without focal deficits. Motor strength is 5/5 bilaterally. Deep tendon reflexes are 2+ plantar. Assessment/Plan Assessment/Plan ASSESSMENT: This is a 68-year-old female. 1. Nausea with vomiting. 2. Diarrhea. 3. Abdominal pain. 4. Generalized weakness. 5. Fever. 6. Liver masses. 7. Elevated liver function tests. 8. Hypertension. 9. Leukocytosis. 10. gastric erosions 11. gastric ulcer 12. esophageal varices TREATMENT: 1. Nausea/vomiting/diarrhea/abdominal pain. A Gastroenterology consultation has been obtained with Dr. Sixto Conner. We will follow recommendations of Gastroenterology. 2. Liver masses. These were ill-defined on the CT scan and Gastroenterology consultation has been obtained with Dr. Sixto Conner. A CT scan of the abdomen with contrast is pending. 3. Hypertension. The patient is currently hypotensive. 4. Leukocytosis/fever. An Infectious Disease consultation has been obtained with Dr. Milan. The patient has been placed empirically on intravenous Zosyn, Flagyl, and cefepime. Tobias Mauricio MD Jul 29, 2018 16:20
--- NOTE | 2018-07-29 17:27 | Nephrology Progress Note ---
Assessment/Plan Problem List: (1) Hyponatremia (2) Hypoalbuminemia (3) History of hypertension (4) Anemia (5) Intractable nausea and vomiting (6) Mass of multiple sites of liver Assessment Leukocytosis persists Proteinuria and HypoAlbuminemia: Etiology ? HypoNatremia , likely depletional Liver disease, Mass, Abcess... other conditions: (1) Intractable nausea and vomiting, abdominal pain , diarrhea (2) Sepsis, leukocytosis (3) Anemia (4) History of hypertension (5) UTI (urinary tract infection) Plan GI fofana urine studies Anemia fofana monitor renal parameters and LFTs Keep BP in check CT: Multifocal liver hypodensities suspicious for abscess. Differential diagnosis includes metastatic neoplasm. Portal vein thrombosis. 3 cm hypodensity in the spleen nonspecific. This could be a mass or abscess. Left renal cysts. Minimal free fluid. Diverticulosis of the colon. Posterior basilar atelectasis versus pneumonia. Subjective ROS Limited/Unobtainable: No Constitutional: Reports: malaise, weakness Objective Objective Last 24 Hour Vital Signs Date Time Temp Pulse Resp B/P (MAP) Pulse Ox O2 Delivery O2 Flow Rate FiO2 07/29/18 16:00 98.3 97 18 152/75 (100) 98 07/29/18 12:51 98.2 07/29/18 12:00 100.2 96 18 129/64 (85) 98 07/29/18 09:15 Nasal Cannula 2.0 07/29/18 08:00 98.2 92 18 136/70 (92) 98 07/29/18 07:13 97 Nasal Cannula 2.0 07/29/18 07:13 91 16 Nasal Cannula 2.0 07/29/18 07:13 Nasal Cannula 2.0 28 07/29/18 04:00 97.4 87 18 119/65 (83) 99 07/29/18 00:00 98.1 91 18 146/75 (98) 98 07/28/18 21:00 Nasal Cannula 2.0 07/28/18 20:00 98.3 91 18 130/68 (88) 100 07/28/18 19:42 98 Nasal Cannula 2.0 28 07/28/18 19:42 91 16 Nasal Cannula 2.0 28 07/28/18 19:42 Nasal Cannula 2.0 28 Intake and Output 07/28/18 07/29/18 19:00 07:00 Intake Total 1190 ml 640 ml Output Total 550 ml Balance 640 ml 640 ml Intake Oral 480 ml IV Total 710 ml 640 ml Stool Total 550 ml # Voids 2 # Bowel Movements 1 Laboratory Tests 07/28/18 19:30: Stool Occult Blood [Pending] 07/29/18 05:00: White Blood Count 19.8H, Red Blood Count 3.32L, Hemoglobin 9.3L, Hematocrit 27.9L, Mean Corpuscular Volume 84, Mean Corpuscular Hemoglobin 28.0, Mean Corpuscular Hemoglobin Concent 33.3, Red Cell Distribution Width 12.7, Platelet Count 575H, Mean Platelet Volume 5.7L, Neutrophils (%) (Auto) , Lymphocytes (%) (Auto) , Monocytes (%) (Auto) , Eosinophils (%) (Auto) , Basophils (%) (Auto) , Differential Total Cells Counted 100, Neutrophils % (Manual) 85H, Lymphocytes % (Manual) 7L, Monocytes % (Manual) 8, Eosinophils % (Manual) 0, Basophils % ( Manual) 0, Band Neutrophils 0, Platelet Estimate IncreasedH, Platelet Morphology Normal, Anisocytosis 1+, Sodium Level 136, Potassium Level 4.4, Chloride Level 105, Carbon Dioxide Level 24, Anion Gap 7, Blood Urea Nitrogen 10 , Creatinine 1.1, Estimat Glomerular Filtration Rate 49.1, Glucose Level 111H, Calcium Level 7.9L, Total Bilirubin 0.4, Aspartate Amino Transf (AST/SGOT) 42H, Alanine Aminotransferase (ALT/SGPT) 63, Alkaline Phosphatase 339H, Total Protein 6.0L, Albumin 1.2L, Globulin 4.8, Albumin/Globulin Ratio 0.2L Height (Feet): 5 Height (Inches): 6.00 Weight (Pounds): 180 General Appearance: no apparent distress Cardiovascular: tachycardia Respiratory/Chest: decreased breath sounds Abdomen: distended Luis E Deng MD Jul 29, 2018 17:27
--- NOTE | 2018-07-29 19:09 | NUR ---
HAND-OFF: Report given to SCOTT Atkins.
--- NOTE | 2018-07-29 19:18 | NUR ---
NURSE NOTES: Pt received in asleep, call light within reach, able to make needs known, no signs of distress at the moment, bed in lowest position, IV fluids running, will continue to monitor.
[2018-07-29 20:00] VITALS: BP 125/63
[2018-07-29] MEDS: Iron Sucrose 100 MG in NS 55 ML IV SCH (21:04)
[2018-07-30] VITALS: BP 142/68
[2018-07-30 04:00] VITALS: BP 131/77
[2018-07-30 06:54] LABS: HEMATOCRIT 27.2 % (37.0-47.0); HEMOGLOBIN 9.1 G/DL (12.0-16.0); MEAN CORPUSCULAR VOLUME 84 FL (80-99); PLATELET COUNT 536 K/UL (150-450); RED BLOOD COUNT 3.24 M/UL (4.20-5.40); RED CELL DISTRIBUTION WIDTH 12.9 % (11.6-14.8); WHITE BLOOD COUNT 21.7 K/UL (4.8-10.8)
[2018-07-30 07:06] LABS: ALANINE AMINOTRANSFERASE 53 U/L (12-78); ALBUMIN 1.2 G/DL (3.4-5.0); ALBUMIN/GLOBULIN RATIO 0.3 (1.0-2.7); ALKALINE PHOSPHATASE 351 U/L (46-116); ANION GAP 6 mmol/L (5-15); ASPARTATE AMINO TRANSFERASE 52 U/L (15-37); BILIRUBIN,TOTAL 0.5 MG/DL (0.2-1.0); BLOOD UREA NITROGEN 8 mg/dL (7-18); CALCIUM 7.7 MG/DL (8.5-10.1); CARBON DIOXIDE 24 MMOL/L (21-32); CHLORIDE 106 MMOL/L (98-107); CREATININE 0.9 MG/DL (0.55-1.30); POTASSIUM 4.6 MMOL/L (3.5-5.1); SODIUM 136 MMOL/L (136-145)
--- NOTE | 2018-07-30 07:37 | NUR ---
HAND-OFF: Report given to SCOTT Tineo.
--- NOTE | 2018-07-30 07:53 | NUR ---
NURSE NOTES: pt in bed with no sob nor in any form of distress noted. Afebrile.Await for CT guided drainage. Breathing regular and unlabored. denies any pain at this time. will continue to monitor
[2018-07-30 08:00] VITALS: BP_SYST 130; BP_SYST 178; BP_DIAS 108; BP_DIAS 74
[2018-07-30] MEDS: Heparin 5000 units/ml inj SUBQ SCH ×2 (08:12→21:37)
[2018-07-30 09:08] LABS: PHOSPHORUS 2.6 MG/DL (2.5-4.9)
--- NOTE | 2018-07-30 10:49 | GI Progress Note ---
Assessment/Plan Problems: (1) Mass of multiple sites of liver ICD Codes: R16.0 - Hepatomegaly, not elsewhere classified SNOMED: 820741352 (2) Gastric erosion ICD Codes: K25.9 - Gastric ulcer, unspecified as acute or chronic, without hemorrhage or perforation SNOMED: 620187242 (3) Esophageal varices ICD Codes: I85.00 - Esophageal varices without bleeding SNOMED: 40837886 (4) Portal vein thrombosis ICD Codes: I81 - Portal vein thrombosis SNOMED: 76352654 (5) Iron deficiency anemia ICD Codes: D50.9 - Iron deficiency anemia, unspecified SNOMED: 94953244 (6) Abdominal pain ICD Codes: R10.9 - Unspecified abdominal pain SNOMED: 79711148 (7) Intractable nausea and vomiting ICD Codes: R11.2 - Nausea with vomiting, unspecified SNOMED: 416196706 Status: unchanged Status Narrative Discussed with Dr. Conner. Assessment/Plan CT and us reviewed >> multiple liver abscess SUMMARY OF FINDINGS: EGD and colonoscopy 1. Esophageal varices, grade 2 four columns. 2. Portal hypertensive gastropathy. 3. Multiple gastric erosions and 1 gastric ulceration. 4. Duodenal atrophy. 5. Internal and external hemorrhoids. 6. Diverticulosis. 7. Two colonic polyps, removed, see above for details US liver bx ppi fu tumor markers>>>> normal CEA fu ID recs>>> on abx fu path ? need for anticoagulation repeat labs The patient was seen and examined at bedside and all new and available data was reviewed in the patients chart. I agree with the above findings, impression and plan. (Patient seen earlier today. Signature stamp does not reflect patient encounter time.). - Sixto Conner MD Subjective Gastrointestinal/Abdominal: Reports: no symptoms Objective Last 24 Hour Vital Signs Date Time Temp Pulse Resp B/P (MAP) Pulse Ox O2 Delivery O2 Flow Rate FiO2 07/30/18 09:41 Nasal Cannula 2.0 07/30/18 08:14 Nasal Cannula 2.0 28 07/30/18 08:13 75 18 Nasal Cannula 2.0 28 07/30/18 08:12 98 Nasal Cannula 2.0 07/30/18 04:00 98.1 93 18 131/77 (95) 95 07/30/18 00:00 98.0 87 18 142/68 (92) 95 07/29/18 21:00 Nasal Cannula 2.0 07/29/18 20:00 98.0 87 19 125/63 (83) 98 07/29/18 18:56 Nasal Cannula 2.0 28 07/29/18 18:56 96 Nasal Cannula 2.0 28 07/29/18 18:56 86 16 Nasal Cannula 2.0 28 07/29/18 16:00 98.3 97 18 152/75 (100) 98 07/29/18 12:51 98.2 07/29/18 12:00 100.2 96 18 129/64 (85) 98 Intake and Output 07/29/18 07/30/18 18:59 06:59 Intake Total 1460 ml 890 ml Output Total 1103 ml Balance 357 ml 890 ml Intake Oral 850 ml IV Total 610 ml 890 ml Output Urine Total 1100 ml Stool Total 3 ml # Voids 2 Laboratory Tests Test 07/30/18 06:00 White Blood Count 21.7 K/UL (4.8-10.8) H Red Blood Count 3.24 M/UL (4.20-5.40) L Hemoglobin 9.1 G/DL (12.0-16.0) L Hematocrit 27.2 % (37.0-47.0) L Mean Corpuscular Volume 84 FL (80-99) Mean Corpuscular Hemoglobin 28.0 PG (27.0-31.0) Mean Corpuscular Hemoglobin Concent 33.4 G/DL (32.0-36.0) Red Cell Distribution Width 12.9 % (11.6-14.8) Platelet Count 536 K/UL (150-450) H Mean Platelet Volume 5.6 FL (6.5-10.1) L Neutrophils (%) (Auto) % (45.0-75.0) Lymphocytes (%) (Auto) % (20.0-45.0) Monocytes (%) (Auto) % (1.0-10.0) Eosinophils (%) (Auto) % (0.0-3.0) Basophils (%) (Auto) % (0.0-2.0) Differential Total Cells Counted 100 Neutrophils % (Manual) 88 % (45-75) H Lymphocytes % (Manual) 5 % (20-45) L Monocytes % (Manual) 7 % (1-10) Eosinophils % (Manual) 0 % (0-3) Basophils % (Manual) 0 % (0-2) Band Neutrophils 0 % (0-8) Platelet Estimate Increased H Platelet Morphology Normal Hypochromasia 1+ Sodium Level 136 MMOL/L (136-145) Potassium Level 4.6 MMOL/L (3.5-5.1) Chloride Level 106 MMOL/L (98-107) Carbon Dioxide Level 24 MMOL/L (21-32) Anion Gap 6 mmol/L (5-15) Blood Urea Nitrogen 8 mg/dL (7-18) Creatinine 0.9 MG/DL (0.55-1.30) Estimat Glomerular Filtration Rate > 60 mL/min (>60) Glucose Level 100 MG/DL (74-106) Calcium Level 7.7 MG/DL (8.5-10.1) L Phosphorus Level 2.6 MG/DL (2.5-4.9) Magnesium Level 1.8 MG/DL (1.8-2.4) Total Bilirubin 0.5 MG/DL (0.2-1.0) Aspartate Amino Transf (AST/SGOT) 52 U/L (15-37) H Alanine Aminotransferase (ALT/SGPT) 53 U/L (12-78) Alkaline Phosphatase 351 U/L (46-116) H Total Protein 5.8 G/DL (6.4-8.2) L Albumin 1.2 G/DL (3.4-5.0) L Globulin 4.6 g/dL Albumin/Globulin Ratio 0.3 (1.0-2.7) L Entamoeba histolytica Antibody Pending Height (Feet): 5 Height (Inches): 6.00 Weight (Pounds): 180 General Appearance: WD/WN, no apparent distress, alert Cardiovascular: normal rate Respiratory/Chest: normal breath sounds, no respiratory distress Abdominal Exam: normal bowel sounds, non tender, soft Extremities: normal range of motion, non-tender Rosangela Mota NP Jul 30, 2018 10:49
[2018-07-30] MEDS ORDERED: Lidocaine 1% Plain 30 ml INJ PRN ×2 (11:03→19:30)
--- NOTE | 2018-07-30 11:26 | Nephrology Progress Note ---
Assessment/Plan Problem List: (1) Hyponatremia (2) Hypoalbuminemia (3) History of hypertension (4) Anemia (5) Intractable nausea and vomiting (6) Mass of multiple sites of liver Assessment Leukocytosis persists Proteinuria and HypoAlbuminemia: Etiology ? HypoNatremia , likely depletional Liver disease, Mass, Abcess... other conditions: (1) Intractable nausea and vomiting, abdominal pain , diarrhea (2) Sepsis, leukocytosis (3) Anemia (4) History of hypertension (5) UTI (urinary tract infection) Plan stable from renal stand GI fofana urine studies Anemia fofana monitor renal parameters and LFTs Keep BP in check CT: Multifocal liver hypodensities suspicious for abscess. Differential diagnosis includes metastatic neoplasm. Portal vein thrombosis. 3 cm hypodensity in the spleen nonspecific. This could be a mass or abscess. Left renal cysts. Minimal free fluid. Diverticulosis of the colon. Posterior basilar atelectasis versus pneumonia. Subjective ROS Limited/Unobtainable: No Constitutional: Reports: malaise, weakness Objective Objective Last 24 Hour Vital Signs Date Time Temp Pulse Resp B/P (MAP) Pulse Ox O2 Delivery O2 Flow Rate FiO2 07/30/18 09:41 Nasal Cannula 2.0 07/30/18 08:14 Nasal Cannula 2.0 07/30/18 08:13 75 18 Nasal Cannula 2.0 07/30/18 08:12 98 Nasal Cannula 2.0 07/30/18 08:00 97.3 103 18 178/108 (131) 99 07/30/18 04:00 98.1 93 18 131/77 (95) 95 07/30/18 00:00 98.0 87 18 142/68 (92) 95 07/29/18 21:00 Nasal Cannula 2.0 07/29/18 20:00 98.0 87 19 125/63 (83) 98 07/29/18 18:56 Nasal Cannula 2.0 28 07/29/18 18:56 96 Nasal Cannula 2.0 28 07/29/18 18:56 86 16 Nasal Cannula 2.0 07/29/18 16:00 98.3 97 18 152/75 (100) 98 07/29/18 12:51 98.2 07/29/18 12:00 100.2 96 18 129/64 (85) 98 Intake and Output 07/29/18 07/30/18 19:00 07:00 Intake Total 1510 ml 840 ml Output Total 1103 ml Balance 407 ml 840 ml Intake Oral 850 ml IV Total 660 ml 840 ml Output Urine Total 1100 ml Stool Total 3 ml # Voids 2 Laboratory Tests 07/30/18 06:00: White Blood Count 21.7H, Red Blood Count 3.24L, Hemoglobin 9.1L, Hematocrit 27.2L, Mean Corpuscular Volume 84, Mean Corpuscular Hemoglobin 28.0, Mean Corpuscular Hemoglobin Concent 33.4, Red Cell Distribution Width 12.9, Platelet Count 536H, Mean Platelet Volume 5.6L, Neutrophils (%) (Auto) , Lymphocytes (%) (Auto) , Monocytes (%) (Auto) , Eosinophils (%) (Auto) , Basophils (%) (Auto) , Differential Total Cells Counted 100, Neutrophils % (Manual) 88H, Lymphocytes % (Manual) 5L, Monocytes % (Manual) 7, Eosinophils % (Manual) 0, Basophils % ( Manual) 0, Band Neutrophils 0, Platelet Estimate IncreasedH, Platelet Morphology Normal, Hypochromasia 1+, Sodium Level 136, Potassium Level 4.6, Chloride Level 106, Carbon Dioxide Level 24, Anion Gap 6, Blood Urea Nitrogen 8 , Creatinine 0.9, Estimat Glomerular Filtration Rate > 60, Glucose Level 100, Calcium Level 7.7L, Phosphorus Level 2.6, Magnesium Level 1.8, Total Bilirubin 0.5, Aspartate Amino Transf (AST/SGOT) 52H, Alanine Aminotransferase (ALT/SGPT) 53, Alkaline Phosphatase 351H, Total Protein 5.8L, Albumin 1.2L, Globulin 4.6, Albumin/Globulin Ratio 0.3L, Entamoeba histolytica Antibody [Pending] Height (Feet): 5 Height (Inches): 6.00 Weight (Pounds): 180 General Appearance: no apparent distress Objective no change Luis E Deng MD Jul 30, 2018 11:25
--- NOTE | 2018-07-30 11:31 | Infectious Diseases Prog Note ---
Assessment/Plan Assessment/Plan Assessment: Sepsis- 2ry to Liver abscess now bacteremic -.29 sp sp drainage of liver abscess -07/26 Bcx 04/06 Bacteroids -CT abd/p w/ : Multifocal liver hypodensities suspicious for abscess. Please correlate clinically. Differential diagnosis includes metastatic neoplasm. Portal vein thrombosis. 3 cm hypodensity in the spleen nonspecific. This could be a mass or abscess. Left renal cysts. Minimal free fluid. Diverticulosis of the colon.Posterior basilar atelectasis versus pneumonia.Gallbladder is contracted. -CT abd/p wo: Limited assessment of the GI tract, due to lack of enteric contrast administration. Trace free intraperitoneal fluid in the pelvis. No acute abdominal process otherwise Trace bilateral pleural effusions. Nonspecific mild thickening of Gerota's fascia. Multiple faint and ill-defined liver masses, not well demonstrated due to lack of IV contrast administration. These mostly appear to be demonstrate fluid attenuation, but are not well enough demonstrated to state for certain. Further evaluation with contrast CT if not contraindicated and ultrasound recommended Bulky pancreatic head, without definite discrete mass. Likewise, further evaluation with contrast CT would be useful to evaluate for possible underlying mass. Gallbladder is nondistended, but this wall appears somewhat edematous. Consider further evaluation with ultrasound if there is clinical suspicion for acute cholecystitis or gallstone disease -u/a wbc 0-2, nit neg, leuk +1 Low grade fever; Sp Leukocytosis; persistent -CXR: Retrocardiac atelectasis. No acute process otherwise Portal Hypertension w/ esophageal varices POrtal vein thrombosis -07/27 SP EGD/COlo: 1. Esophageal varices, grade 2 four columns. 2. Portal hypertensive gastropathy. 3. Multiple gastric erosions and 1 gastric ulceration. 4. Duodenal atrophy. 5. Internal and external hemorrhoids. 6. Diverticulosis. 7. Two colonic polyps, removed, see above for details. Elevated LFTs; improving -Abd US: Portal vein thrombosis with cavernous transformation.Abnormal liver. Please refer to the CT report.Poor evaluation of the spleen not well seen on this examination.Marked wall thickening of the gallbladder.Left renal cyst -acute hep panel, HIV ab sc neg HTN arthritis Plan: -Continue Cefepime # 5 and add Flagyl # 5 ( total duration 6 wks for liver abscess) -low threshold to switch to Meropenem if decompensates -07/26 SP IV Vancomycin #1, Zosyn x1 -repeat 2 sets Bcx -CT guided liver abscess drainage -send fluid for cytology, and cultures (AFB, Fungal, bacterial) -f/u cx -Monitor CBC/CMP, temperatures -aspiration precautions -GI f/u Subjective Allergies: Coded Allergies: No Known Allergies (Unverified , 07/26/18) Subjective sp drainage of liver abscess comfortable Objective Vital Signs Last 24 Hour Vital Signs Date Time Temp Pulse Resp B/P (MAP) Pulse Ox O2 Delivery O2 Flow Rate FiO2 07/30/18 09:41 Nasal Cannula 2.0 07/30/18 08:14 Nasal Cannula 2.0 28 07/30/18 08:13 75 18 Nasal Cannula 2.0 28 07/30/18 08:12 98 Nasal Cannula 2.0 28 07/30/18 08:00 97.3 103 18 178/108 (131) 99 07/30/18 04:00 98.1 93 18 131/77 (95) 95 07/30/18 00:00 98.0 87 18 142/68 (92) 95 07/29/18 21:00 Nasal Cannula 2.0 07/29/18 20:00 98.0 87 19 125/63 (83) 98 07/29/18 18:56 Nasal Cannula 2.0 28 07/29/18 18:56 96 Nasal Cannula 2.0 28 07/29/18 18:56 86 16 Nasal Cannula 2.0 28 07/29/18 16:00 98.3 97 18 152/75 (100) 98 07/29/18 12:51 98.2 07/29/18 12:00 100.2 96 18 129/64 (85) 98 Height (Feet): 5 Height (Inches): 6.00 Weight (Pounds): 180 HEENT: atraumatic Cardiovascular: regularly irregular Abdomen: no organomegaly Microbiology Date/Time Source Procedure Growth Status 07/28/18 05:10 Blood Blood Culture - Preliminary NO GROWTH AFTER 24 HOURS Resulted 07/28/18 05:00 Blood Blood Culture - Preliminary NO GROWTH AFTER 24 HOURS Resulted 07/27/18 13:00 Indwelling Cath Urine Culture - Final Mixed Gram Positive Organism Complete Laboratory Tests Test 07/30/18 06:00 White Blood Count 21.7 K/UL (4.8-10.8) H Red Blood Count 3.24 M/UL (4.20-5.40) L Hemoglobin 9.1 G/DL (12.0-16.0) L Hematocrit 27.2 % (37.0-47.0) L Mean Corpuscular Volume 84 FL (80-99) Mean Corpuscular Hemoglobin 28.0 PG (27.0-31.0) Mean Corpuscular Hemoglobin Concent 33.4 G/DL (32.0-36.0) Red Cell Distribution Width 12.9 % (11.6-14.8) Platelet Count 536 K/UL (150-450) H Mean Platelet Volume 5.6 FL (6.5-10.1) L Neutrophils (%) (Auto) % (45.0-75.0) Lymphocytes (%) (Auto) % (20.0-45.0) Monocytes (%) (Auto) % (1.0-10.0) Eosinophils (%) (Auto) % (0.0-3.0) Basophils (%) (Auto) % (0.0-2.0) Differential Total Cells Counted 100 Neutrophils % (Manual) 88 % (45-75) H Lymphocytes % (Manual) 5 % (20-45) L Monocytes % (Manual) 7 % (1-10) Eosinophils % (Manual) 0 % (0-3) Basophils % (Manual) 0 % (0-2) Band Neutrophils 0 % (0-8) Platelet Estimate Increased H Platelet Morphology Normal Hypochromasia 1+ Sodium Level 136 MMOL/L (136-145) Potassium Level 4.6 MMOL/L (3.5-5.1) Chloride Level 106 MMOL/L (98-107) Carbon Dioxide Level 24 MMOL/L (21-32) Anion Gap 6 mmol/L (5-15) Blood Urea Nitrogen 8 mg/dL (7-18) Creatinine 0.9 MG/DL (0.55-1.30) Estimat Glomerular Filtration Rate > 60 mL/min (>60) Glucose Level 100 MG/DL (74-106) Calcium Level 7.7 MG/DL (8.5-10.1) L Phosphorus Level 2.6 MG/DL (2.5-4.9) Magnesium Level 1.8 MG/DL (1.8-2.4) Total Bilirubin 0.5 MG/DL (0.2-1.0) Aspartate Amino Transf (AST/SGOT) 52 U/L (15-37) H Alanine Aminotransferase (ALT/SGPT) 53 U/L (12-78) Alkaline Phosphatase 351 U/L (46-116) H Total Protein 5.8 G/DL (6.4-8.2) L Albumin 1.2 G/DL (3.4-5.0) L Globulin 4.6 g/dL Albumin/Globulin Ratio 0.3 (1.0-2.7) L Entamoeba histolytica Antibody Pending Current Medications Medications (Trade) Dose Ordered Sig/Jose Route PRN Reason Start Time Stop Time Status Last Admin Dose Admin Acetaminophen (Tylenol) 650 mg Q4H PRN ORAL fever 07/27/18 18:49 08/25/18 18:48 07/29/18 21:07 Albuterol/ Ipratropium (Albuterol/ Ipratropium) 3 ml Q4H PRN HHN Shortness of Breath 07/27/18 18:49 07/31/18 18:48 Cefepime HCl 2 gm/ Dextrose 110 ml @ 220 mls/hr Q24H IV 07/28/18 12:00 08/02/18 11:59 07/29/18 11:52 Dextrose/Sodium Chloride 1,000 ml @ 50 mls/hr Q20H IV 07/27/18 20:00 08/26/18 19:59 07/29/18 11:52 Heparin Sodium (Porcine) (Heparin 5000 units/ml) 5,000 units EVERY 12 HOURS SUBQ 07/27/18 21:00 08/25/18 20:59 07/29/18 21:08 Iron Sucrose 100 mg/Sodium Chloride 60 ml @ 240 mls/hr BEDTIME IV 07/27/18 21:00 07/31/18 21:14 07/29/18 21:04 Lidocaine HCl (Xylocaine 1% 30ml) 30 ml ONCE PRN INJ line 07/30/18 11:03 07/30/18 23:59 Metronidazole 100 ml @ 100 mls/hr Q8HR IVPB 07/27/18 22:00 08/02/18 14:59 07/30/18 05:59 Morphine Sulfate (Morphine Sulfate) 2 mg Q4H PRN IVP Moderate Pain (Pain Scale 4-6) 07/27/18 18:49 5/2/19 18:48 07/30/18 00:36 Ondansetron HCl (Zofran) 4 mg Q6H PRN IVP Nausea & Vomiting 07/27/18 18:49 08/25/18 18:48 Pantoprazole (Protonix) 40 mg DAILY ORAL 07/28/18 09:00 08/27/18 08:59 07/30/18 08:12 Phenazopyridine HCl (Pyridium) 100 mg DAILYPRN PRN ORAL dysuria 07/27/18 18:50 08/26/18 18:49 Polyethylene Glycol (Miralax) 17 gm DAILYPRN PRN ORAL Constipation 07/27/18 18:50 08/26/18 18:49 Temazepam (Restoril) 15 mg HSPRN PRN ORAL Insomnia 07/27/18 21:00 08/03/18 20:59 Billy Mackey MD Jul 30, 2018 11:31
--- NOTE | 2018-07-30 11:34 | Pre-Procedure Note/Attestation ---
Pre-Procedure Note/Attestation Complete Prior to Procedure Planned Procedure: not applicable Procedure Narrative: Liver biopsy and aspiration, possible drainage Indications for Procedure Pre-Operative Diagnosis: liver lesions Attestation I attest that I discussed the nature of the procedure; its benefits; risks and complications; and alternatives (and the risks and benefits of such alternatives ), prior to the procedure, with the patient (or the patient's legal commercial pest control representative). I attest that, if there was a reasonable possibility of needing a blood transfusion, the patient (or the patient's legal commercial pest control representative) was given the [facility] standardized written summary, pursuant to the [place] Blood Safety Act ([place] Health and Safety Code # 1645, as amended). I attest that I re-evaluated the patient just prior to the surgery and that there has been no change in the patient's H&P, except as documented below: Bin Lozano MD Jul 30, 2018 11:34
[2018-07-30 11:56] VITALS: BP 141/77
--- NOTE | 2018-07-30 12:01 | Brief Operative Note ---
Immediate Post Operative Note Operative Note Pre-op Diagnosis: liver lesions Procedure: L Lobe liver aspiration and biopsy Post-op Diagnosis: Liver abscesses Surgeon: Freya Deluca Anesthesia: local Specimen: yes - few ml of pus, single 18 G core Complications: none Condition: stable Fluids: none Implant(s) used?: No Bin Deluca MD Jul 30, 2018 12:01
--- NOTE | 2018-07-30 12:20 | Pulmonology Progress Note ---
Assessment/Plan Problems: (1) Mass of multiple sites of liver (2) Sepsis (3) Intractable nausea and vomiting (4) Anemia (5) History of hypertension (6) UTI (urinary tract infection) (7) Esophageal varices Assessment/Plan all reviewed for CT guided drainage of liver ?abscess f/u WBC f/u EGD and colonoscopy results f/u tumor markers on Venofer check urine cultures f/u ID recommendations dvt prophylaxis. Subjective ROS Limited/Unobtainable: No Constitutional: Reports: no symptoms HEENT: Repors: no symptoms Respiratory: Reports: no symptoms Allergies: Coded Allergies: No Known Allergies (Unverified , 07/26/18) Objective Last 24 Hour Vital Signs Date Time Temp Pulse Resp B/P (MAP) Pulse Ox O2 Delivery O2 Flow Rate FiO2 07/30/18 11:56 93 20 3.0 07/30/18 09:41 Nasal Cannula 2.0 07/30/18 08:14 Nasal Cannula 2.0 28 07/30/18 08:13 75 18 Nasal Cannula 2.0 07/30/18 08:12 98 Nasal Cannula 2.0 28 07/30/18 08:00 98.4 96 18 130/74 (92) 99 07/30/18 04:00 98.1 93 18 131/77 (95) 95 07/30/18 00:00 98.0 87 18 142/68 (92) 95 07/29/18 21:00 Nasal Cannula 2.0 07/29/18 20:00 98.0 87 19 125/63 (83) 98 07/29/18 18:56 Nasal Cannula 2.0 28 07/29/18 18:56 96 Nasal Cannula 2.0 28 07/29/18 18:56 86 16 Nasal Cannula 2.0 28 07/29/18 16:00 98.3 97 18 152/75 (100) 98 07/29/18 12:51 98.2 Intake and Output 07/29/18 07/30/18 19:00 07:00 Intake Total 1510 ml 840 ml Output Total 1103 ml Balance 407 ml 840 ml Intake Oral 850 ml IV Total 660 ml 840 ml Output Urine Total 1100 ml Stool Total 3 ml # Voids 2 Objective General Appearance: WD/WN Lines, tubes and drains: peripheral HEENT: normocephalic, atraumatic Neck: non-tender, normal alignment Respiratory/Chest: lungs clear, normal breath sounds Breasts: no masses Cardiovascular/Chest: normal peripheral pulses, normal rate Abdomen: normal bowel sounds Genitourinary/Rectal: normal genital exam Extremities: normal range of motion Skin Exam: normal pigmentation Neurologic: harness builder II-XII grossly normal Microbiology Date/Time Source Procedure Growth Status 07/28/18 05:10 Blood Blood Culture - Preliminary NO GROWTH AFTER 24 HOURS Resulted 07/28/18 05:00 Blood Blood Culture - Preliminary NO GROWTH AFTER 24 HOURS Resulted 07/27/18 13:00 Indwelling Cath Urine Culture - Final Mixed Gram Positive Organism Complete Laboratory Tests 07/30/18 06:00: White Blood Count 21.7H, Red Blood Count 3.24L, Hemoglobin 9.1L, Hematocrit 27.2L, Mean Corpuscular Volume 84, Mean Corpuscular Hemoglobin 28.0, Mean Corpuscular Hemoglobin Concent 33.4, Red Cell Distribution Width 12.9, Platelet Count 536H, Mean Platelet Volume 5.6L, Neutrophils (%) (Auto) , Lymphocytes (%) (Auto) , Monocytes (%) (Auto) , Eosinophils (%) (Auto) , Basophils (%) (Auto) , Differential Total Cells Counted 100, Neutrophils % (Manual) 88H, Lymphocytes % (Manual) 5L, Monocytes % (Manual) 7, Eosinophils % (Manual) 0, Basophils % ( Manual) 0, Band Neutrophils 0, Platelet Estimate IncreasedH, Platelet Morphology Normal, Hypochromasia 1+, Sodium Level 136, Potassium Level 4.6, Chloride Level 106, Carbon Dioxide Level 24, Anion Gap 6, Blood Urea Nitrogen 8 , Creatinine 0.9, Estimat Glomerular Filtration Rate > 60, Glucose Level 100, Calcium Level 7.7L, Phosphorus Level 2.6, Magnesium Level 1.8, Total Bilirubin 0.5, Aspartate Amino Transf (AST/SGOT) 52H, Alanine Aminotransferase (ALT/SGPT) 53, Alkaline Phosphatase 351H, Total Protein 5.8L, Albumin 1.2L, Globulin 4.6, Albumin/Globulin Ratio 0.3L, Entamoeba histolytica Antibody [Pending] Current Medications Medications (Trade) Dose Ordered Sig/Jose Route PRN Reason Start Time Stop Time Status Last Admin Dose Admin Acetaminophen (Tylenol) 650 mg Q4H PRN ORAL fever 07/27/18 18:49 08/25/18 18:48 07/29/18 21:07 Albuterol/ Ipratropium (Albuterol/ Ipratropium) 3 ml Q4H PRN HHN Shortness of Breath 07/27/18 18:49 07/31/18 18:48 Cefepime HCl 2 gm/ Dextrose 110 ml @ 220 mls/hr Q24H IV 07/28/18 12:00 08/02/18 11:59 07/29/18 11:52 Dextrose/Sodium Chloride 1,000 ml @ 50 mls/hr Q20H IV 07/27/18 20:00 08/26/18 19:59 07/29/18 11:52 Heparin Sodium (Porcine) (Heparin 5000 units/ml) 5,000 units EVERY 12 HOURS SUBQ 07/27/18 21:00 08/25/18 20:59 07/29/18 21:08 Iron Sucrose 100 mg/Sodium Chloride 60 ml @ 240 mls/hr BEDTIME IV 07/27/18 21:00 07/31/18 21:14 07/29/18 21:04 Lidocaine HCl (Xylocaine 1% 30ml) 30 ml ONCE PRN INJ line 07/30/18 11:03 07/30/18 23:59 Metronidazole 100 ml @ 100 mls/hr Q8HR IVPB 07/27/18 22:00 08/02/18 14:59 07/30/18 05:59 Morphine Sulfate (Morphine Sulfate) 2 mg Q4H PRN IVP Moderate Pain (Pain Scale 4-6) 07/27/18 18:49 08/02/18 18:48 07/30/18 00:36 Ondansetron HCl (Zofran) 4 mg Q6H PRN IVP Nausea & Vomiting 07/27/18 18:49 08/25/18 18:48 Pantoprazole (Protonix) 40 mg DAILY ORAL 07/28/18 09:00 08/27/18 08:59 07/30/18 08:12 Phenazopyridine HCl (Pyridium) 100 mg DAILYPRN PRN ORAL dysuria 07/27/18 18:50 08/26/18 18:49 Polyethylene Glycol (Miralax) 17 gm DAILYPRN PRN ORAL Constipation 07/27/18 18:50 08/26/18 18:49 Temazepam (Restoril) 15 mg HSPRN PRN ORAL Insomnia 07/27/18 21:00 08/03/18 20:59 Kirsten Leonard MD Jul 30, 2018 12:20
[2018-07-30] MEDS: Cefepime HCl 2 GM in D5W 110 ML IV SCH (12:25)
--- NOTE | 2018-07-30 14:52 | Diagnostic Imaging Report ---
Indication: Abdominal pain, multiple liver lesions on recent CT and ultrasound Technique: Prior imaging studies reviewed. Informed consent obtained prior to commencement of the procedure. Procedural timeout performed. Used to localize optimal puncture site, thought to be at the tip of the left hepatic lobe. The skin was sterilely prepped and draped. Local anesthesia with 1% lidocaine. Initially, a 4 [place] Yueh needle was passed into the largest apparent fluid collection. Approximately 3 mL of pus aspirated. Specimen was sent to the lab for analysis. Attempts made at passing a guidewire through the Yueh needle, unsuccessful. A 17-gauge guide needle was then directed into the collection in the left hepatic lobe. Approximately 1 mL of pus aspirated. A single 18-gauge biopsy specimen was then obtained using automated biopsy gun. The specimen was sent to pathology. Additional biopsy specimens were not taken, in hopes of avoiding causing bacteremia. The patient tolerated the procedure well, without immediate complication. Comparison: CT scans and abdomen ultrasound of 07/26/2018 Findings: As above Impression: Successful aspiration of left lobe abscess, returning approximately 3 mL of pus. Note that drainage could not be performed. Attempt at guidewire passage unsuccessful. Prior imaging studies demonstrate multifocal microabscesses scattered throughout both lobes rather than a single large drainable collection. Single 18-gauge biopsy specimen also obtained.
[2018-07-30 16:00] VITALS: BP 131/68
[2018-07-30] MEDS: D5NS 1,000 ML IV SCH (16:53)
--- NOTE | 2018-07-30 19:00 | NUR ---
NURSE NOTES: Received a report from SCOTT Tineo. Pt is in stable condition. AAOX4. Able to make needs known. No respiratory distress noted. Uses nasal cannula 2L/min. No c/o pain/discomfort noted. IV site is leaking. Will insert one later. Bed in lowest position. Bed alarm is on. Call light within reach. Will continue to monitor.
--- NOTE | 2018-07-30 19:27 | Internal Med Progress Note ---
Subjective Date of Service: Jul 30, 2018 Physician Name Tobias Mauricio Attending Physician Eh Ann MD Current Medications Medications (Trade) Dose Ordered Sig/Jose Route PRN Reason Start Time Stop Time Status Last Admin Dose Admin Acetaminophen (Tylenol) 650 mg Q4H PRN ORAL fever 07/27/18 18:49 08/25/18 18:48 07/30/18 14:15 Albuterol/ Ipratropium (Albuterol/ Ipratropium) 3 ml Q4H PRN HHN Shortness of Breath 07/27/18 18:49 07/31/18 18:48 Cefepime HCl 2 gm/ Dextrose 110 ml @ 220 mls/hr Q24H IV 07/28/18 12:00 08/02/18 11:59 07/30/18 12:25 Dextrose/Sodium Chloride 1,000 ml @ 50 mls/hr Q20H IV 07/27/18 20:00 08/26/18 19:59 07/30/18 16:53 Heparin Sodium (Porcine) (Heparin 5000 units/ml) 5,000 units EVERY 12 HOURS SUBQ 07/27/18 21:00 08/25/18 20:59 07/29/18 21:08 Iron Sucrose 100 mg/Sodium Chloride 60 ml @ 240 mls/hr BEDTIME IV 07/27/18 21:00 07/31/18 21:14 07/29/18 21:04 Lidocaine HCl (Xylocaine 1% 30ml) 30 ml ONCE PRN INJ line 07/30/18 11:03 07/30/18 23:59 Metronidazole 100 ml @ 100 mls/hr Q8HR IVPB 07/27/18 22:00 08/02/18 14:59 07/30/18 14:06 Morphine Sulfate (Morphine Sulfate) 2 mg Q4H PRN IVP Moderate Pain (Pain Scale 4-6) 07/27/18 18:49 08/02/18 18:48 07/30/18 00:36 Ondansetron HCl (Zofran) 4 mg Q6H PRN IVP Nausea & Vomiting 07/27/18 18:49 08/25/18 18:48 Pantoprazole (Protonix) 40 mg DAILY ORAL 07/28/18 09:00 08/27/18 08:59 07/30/18 08:12 Phenazopyridine HCl (Pyridium) 100 mg DAILYPRN PRN ORAL dysuria 07/27/18 18:50 08/26/18 18:49 Polyethylene Glycol (Miralax) 17 gm DAILYPRN PRN ORAL Constipation 07/27/18 18:50 08/26/18 18:49 Temazepam (Restoril) 15 mg HSPRN PRN ORAL Insomnia 07/27/18 21:00 08/03/18 20:59 Allergies: Coded Allergies: No Known Allergies (Unverified , 07/26/18) ROS Limited/Unobtainable: No Constitutional: Reports: no symptoms HEENT: Reports: no symptoms Cardiovascular: Reports: no symptoms Respiratory: Reports: no symptoms Gastrointestinal/Abdominal: Reports: abdominal pain, diarrhea, nausea, vomiting Genitourinary: Reports: no symptoms Neurologic/Psychiatric: Reports: no symptoms Subjective 68 YO F admitted with nausea, vomiting and diarrhea. Cover for Int med-DR Ann. S/P endoscopy abd colonoscopy 07/27/18. S/P liver abscess aspiration and biopsy 07/30/18 Objective Last Vital Signs Date Time Temp Pulse Resp B/P (MAP) Pulse Ox O2 Delivery O2 Flow Rate FiO2 07/30/18 16:00 98.8 94 18 131/68 (89) 99 07/30/18 11:56 3.0 07/30/18 09:41 Nasal Cannula 07/30/18 08:14 28 Laboratory Tests Test 07/30/18 06:00 White Blood Count 21.7 K/UL (4.8-10.8) H Red Blood Count 3.24 M/UL (4.20-5.40) L Hemoglobin 9.1 G/DL (12.0-16.0) L Hematocrit 27.2 % (37.0-47.0) L Mean Corpuscular Volume 84 FL (80-99) Mean Corpuscular Hemoglobin 28.0 PG (27.0-31.0) Mean Corpuscular Hemoglobin Concent 33.4 G/DL (32.0-36.0) Red Cell Distribution Width 12.9 % (11.6-14.8) Platelet Count 536 K/UL (150-450) H Mean Platelet Volume 5.6 FL (6.5-10.1) L Neutrophils (%) (Auto) % (45.0-75.0) Lymphocytes (%) (Auto) % (20.0-45.0) Monocytes (%) (Auto) % (1.0-10.0) Eosinophils (%) (Auto) % (0.0-3.0) Basophils (%) (Auto) % (0.0-2.0) Differential Total Cells Counted 100 Neutrophils % (Manual) 88 % (45-75) H Lymphocytes % (Manual) 5 % (20-45) L Monocytes % (Manual) 7 % (1-10) Eosinophils % (Manual) 0 % (0-3) Basophils % (Manual) 0 % (0-2) Band Neutrophils 0 % (0-8) Platelet Estimate Increased H Platelet Morphology Normal Hypochromasia 1+ Sodium Level 136 MMOL/L (136-145) Potassium Level 4.6 MMOL/L (3.5-5.1) Chloride Level 106 MMOL/L (98-107) Carbon Dioxide Level 24 MMOL/L (21-32) Anion Gap 6 mmol/L (5-15) Blood Urea Nitrogen 8 mg/dL (7-18) Creatinine 0.9 MG/DL (0.55-1.30) Estimat Glomerular Filtration Rate > 60 mL/min (>60) Glucose Level 100 MG/DL (74-106) Calcium Level 7.7 MG/DL (8.5-10.1) L Phosphorus Level 2.6 MG/DL (2.5-4.9) Magnesium Level 1.8 MG/DL (1.8-2.4) Total Bilirubin 0.5 MG/DL (0.2-1.0) Aspartate Amino Transf (AST/SGOT) 52 U/L (15-37) H Alanine Aminotransferase (ALT/SGPT) 53 U/L (12-78) Alkaline Phosphatase 351 U/L (46-116) H Total Protein 5.8 G/DL (6.4-8.2) L Albumin 1.2 G/DL (3.4-5.0) L Globulin 4.6 g/dL Albumin/Globulin Ratio 0.3 (1.0-2.7) L Entamoeba histolytica Antibody Pending Microbiology Date/Time Source Procedure Growth Status 07/28/18 05:10 Blood Blood Culture - Preliminary NO GROWTH AFTER 24 HOURS Resulted 07/28/18 05:00 Blood Blood Culture - Preliminary NO GROWTH AFTER 24 HOURS Resulted Intake and Output 07/29/18 07/30/18 19:00 07:00 Intake Total 1510 ml 840 ml Output Total 1103 ml Balance 407 ml 840 ml Intake Oral 850 ml IV Total 660 ml 840 ml Output Urine Total 1100 ml Stool Total 3 ml # Voids 2 Objective PHYSICAL EXAMINATION: GENERAL: The patient is well-developed and well-nourished female, in no apparent distress. HEENT: Eyes, pupils are equal and responsive to light and accommodation. Extraocular movements are intact. NECK: Supple without lymphadenopathy. CHEST: Lungs are clear to auscultation bilaterally without wheezes or rales. CARDIOVASCULAR: Tachycardic. Regular rate and rhythm. S1 and S2 are normal without murmurs, rubs, or gallops. ABDOMEN: Soft. Tender to palpation in the left upper quadrant. Positive bowel sounds. No evidence of hepatosplenomegaly. Currently, no rebound or guarding noted. EXTREMITIES: Negative for clubbing, cyanosis, or edema. RECTAL/GENITAL: Refused. NEUROLOGIC: Cranial nerves II through XII are grossly intact without focal deficits. Motor strength is 5/5 bilaterally. Deep tendon reflexes are 2+ plantar. Assessment/Plan Assessment/Plan ASSESSMENT: This is a 68-year-old female. 1. Nausea with vomiting. 2. Diarrhea. 3. Abdominal pain. 4. Generalized weakness. 5. Fever. 6. Liver masses. 7. Elevated liver function tests. 8. Hypertension. 9. Leukocytosis. 10. gastric erosions 11. gastric ulcer 12. esophageal varices 13. Liver abscess TREATMENT: 1. Nausea/vomiting/diarrhea/abdominal pain. A Gastroenterology consultation has been obtained with Dr. Sixto Conner. We will follow recommendations of Gastroenterology. 2. Liver masses. These were ill-defined on the CT scan and Gastroenterology consultation has been obtained with Dr. Sixto Conner. A CT scan of the abdomen with contrast is pending. 3. Hypertension. The patient is currently hypotensive. 4. Leukocytosis/fever. An Infectious Disease consultation has been obtained with Dr. Milan. The patient has been placed empirically on intravenous Zosyn, Flagyl, and cefepime. 5. S/P liver abscess aspiration and biopsy-await cultures and path Tobias Mauricio MD Jul 30, 2018 19:27
--- NOTE | 2018-07-30 19:28 | NUR ---
HAND-OFF: Report given to SCOTT Damon.
[2018-07-30] MEDS ORDERED: Heparin1,000 units/500ml Premix(Conc:2 units/ml) IV PRN (19:30)
[2018-07-30 20:00] VITALS: BP 132/70
[2018-07-30] MEDS: Dyna-Hex 2% Top Sol 2oz TOPIC SCH (20:00)
--- NOTE | 2018-07-30 20:11 | NUR ---
CASE MANAGEMENT: REVIEW SI: ESOPHAGEAL VARICES . SEPSIS . ANEMIA EGD COLONOSCOPY 07/27 T 98.8 HR 93 RR 18 BP 131/68 SAT 99% NC/2L WBC 21.7 H/H 9.1/27.2 IS: CEFEPIME IV Q24HR FLAGYL IV Q8HR VENOFER IV QHS HEPARIN SQ Q12HR MED/SURG STATUS DCP: PATIENT IS FROM HOME
[2018-07-30] MEDS: Iron Sucrose 100 MG in NS 55 ML IV SCH (21:36)
[2018-07-31] VITALS: BP 130/62
[2018-07-31 04:00] VITALS: BP 126/74
[2018-07-31] MEDS: D5NS 1,000 ML IV SCH (04:00)
[2018-07-31 07:05] LABS: ALANINE AMINOTRANSFERASE 47 U/L (12-78); ALBUMIN 1.2 G/DL (3.4-5.0); ALBUMIN/GLOBULIN RATIO 0.3 (1.0-2.7); ALKALINE PHOSPHATASE 361 U/L (46-116); ANION GAP 7 mmol/L (5-15); ASPARTATE AMINO TRANSFERASE 44 U/L (15-37); BILIRUBIN,TOTAL 0.5 MG/DL (0.2-1.0); BLOOD UREA NITROGEN 7 mg/dL (7-18); CALCIUM 7.8 MG/DL (8.5-10.1); CARBON DIOXIDE 24 MMOL/L (21-32); CHLORIDE 106 MMOL/L (98-107); CREATININE 0.8 MG/DL (0.55-1.30); POTASSIUM 4.4 MMOL/L (3.5-5.1); SODIUM 137 MMOL/L (136-145)
--- NOTE | 2018-07-31 07:05 | NUR ---
HAND-OFF: Report given to Gilberto Apodaca RN.
[2018-07-31 07:11] LABS: HEMATOCRIT 26.7 % (37.0-47.0); HEMOGLOBIN 8.9 G/DL (12.0-16.0); MEAN CORPUSCULAR VOLUME 84 FL (80-99); PLATELET COUNT 566 K/UL (150-450); RED BLOOD COUNT 3.17 M/UL (4.20-5.40); RED CELL DISTRIBUTION WIDTH 13.3 % (11.6-14.8); WHITE BLOOD COUNT 19.4 K/UL (4.8-10.8)
[2018-07-31 08:00] VITALS: BP 136/74
[2018-07-31] MEDS: Heparin 5000 units/ml inj SUBQ SCH ×2 (08:18→22:56)
--- NOTE | 2018-07-31 09:55 | NUR ---
NURSE NOTES: PT AXOX4, CALM, RESTING IN BED. PT STATES SHE HAS RIGHT MID ABDOMEN PAIN. DOES NOT WANT PAIN MEDICATION AT THIS TIME. PT ALSO HAD NAUSEA AND VOMITING THIS MORNING. REFUSES ZOFRAN AT THIS TIME. PT STATES SHE WANTS TO TAKE ONLY HER PROTONIX AT THIS TIME. PT ABLE TO USE BSC WITH ASSIST. PT EDUCATED ON FALL/SAFETY PRECAUTIONS, USE CALL LIGHT WHEN NEEDING TO USE BSC. PT VERBALIZED UNDERSTANDING. CALL LIGHT WITHIN REACH. BED IN LOWEST POSITION WITH BED ALARM ON. WILL CONTINUE TO MONITOR.
--- NOTE | 2018-07-31 10:12 | NUR ---
NURSE NOTES: PT OFF UNIT FOR PICC PLACEMENT.
--- NOTE | 2018-07-31 10:44 | GI Progress Note ---
Assessment/Plan Problems: (1) Mass of multiple sites of liver ICD Codes: R16.0 - Hepatomegaly, not elsewhere classified SNOMED: 749861205 (2) Gastric erosion ICD Codes: K25.9 - Gastric ulcer, unspecified as acute or chronic, without hemorrhage or perforation SNOMED: 940978893 (3) Esophageal varices ICD Codes: I85.00 - Esophageal varices without bleeding SNOMED: 23885747 (4) Portal vein thrombosis ICD Codes: I81 - Portal vein thrombosis SNOMED: 39801356 (5) Iron deficiency anemia ICD Codes: D50.9 - Iron deficiency anemia, unspecified SNOMED: 74512339 (6) Abdominal pain ICD Codes: R10.9 - Unspecified abdominal pain SNOMED: 88143228 (7) Intractable nausea and vomiting ICD Codes: R11.2 - Nausea with vomiting, unspecified SNOMED: 946897373 Status: unchanged Status Narrative Discussed with Dr. Conner Assessment/Plan CT and us reviewed >> multiple liver abscess Status post liver biopsy of the abscess Pathology from endoscopy reviewed, H. pylori gastritis Occult blood stool positive SUMMARY OF FINDINGS: EGD and colonoscopy 1. Esophageal varices, grade 2 four columns. 2. Portal hypertensive gastropathy. 3. Multiple gastric erosions and 1 gastric ulceration. 4. Duodenal atrophy. 5. Internal and external hemorrhoids. 6. Diverticulosis. 7. Two colonic polyps, removed, see above for details ppi fu tumor markers>>>> normal CEA fu ID recs>>> on abx fu path ? need for anticoagulation repeat labs Outpatient treatment for H. pylori's The patient was seen and examined at bedside and all new and available data was reviewed in the patients chart. I agree with the above findings, impression and plan. (Patient seen earlier today. Signature stamp does not reflect patient encounter time.). - Sixto Conner MD Subjective Subjective Has complaint of nausea Objective Last 24 Hour Vital Signs Date Time Temp Pulse Resp B/P (MAP) Pulse Ox O2 Delivery O2 Flow Rate FiO2 07/31/18 09:00 Nasal Cannula 2.0 07/31/18 08:00 97.8 95 20 136/74 (94) 97 07/31/18 04:00 98.7 95 18 126/74 (91) 97 07/31/18 00:00 98.8 93 18 130/62 (84) 100 07/30/18 21:00 Nasal Cannula 2.0 07/30/18 20:00 98.0 93 18 132/70 (90) 98 07/30/18 18:50 Nasal Cannula 2.0 28 07/30/18 18:50 99 Nasal Cannula 2.0 28 07/30/18 18:50 77 18 Nasal Cannula 2.0 28 07/30/18 16:00 98.8 94 18 131/68 (89) 99 07/30/18 14:45 98.4 07/30/18 11:56 93 20 3.0 Intake and Output 07/30/18 07/31/18 18:59 06:59 Intake Total 1350 ml 610 ml Balance 1350 ml 610 ml Intake Oral 1240 ml IV Total 110 ml 610 ml # Voids 6 # Bowel Movements 2 Laboratory Tests Test 07/31/18 05:55 White Blood Count 19.4 K/UL (4.8-10.8) H Red Blood Count 3.17 M/UL (4.20-5.40) L Hemoglobin 8.9 G/DL (12.0-16.0) L Hematocrit 26.7 % (37.0-47.0) L Mean Corpuscular Volume 84 FL (80-99) Mean Corpuscular Hemoglobin 28.2 PG (27.0-31.0) Mean Corpuscular Hemoglobin Concent 33.4 G/DL (32.0-36.0) Red Cell Distribution Width 13.3 % (11.6-14.8) Platelet Count 566 K/UL (150-450) H Mean Platelet Volume 5.6 FL (6.5-10.1) L Neutrophils (%) (Auto) % (45.0-75.0) Lymphocytes (%) (Auto) % (20.0-45.0) Monocytes (%) (Auto) % (1.0-10.0) Eosinophils (%) (Auto) % (0.0-3.0) Basophils (%) (Auto) % (0.0-2.0) Neutrophils % (Manual) Pending Lymphocytes % (Manual) Pending Platelet Estimate Pending Platelet Morphology Pending Sodium Level 137 MMOL/L (136-145) Potassium Level 4.4 MMOL/L (3.5-5.1) Chloride Level 106 MMOL/L (98-107) Carbon Dioxide Level 24 MMOL/L (21-32) Anion Gap 7 mmol/L (5-15) Blood Urea Nitrogen 7 mg/dL (7-18) Creatinine 0.8 MG/DL (0.55-1.30) Estimat Glomerular Filtration Rate > 60 mL/min (>60) Glucose Level 101 MG/DL (74-106) Calcium Level 7.8 MG/DL (8.5-10.1) L Total Bilirubin 0.5 MG/DL (0.2-1.0) Aspartate Amino Transf (AST/SGOT) 44 U/L (15-37) H Alanine Aminotransferase (ALT/SGPT) 47 U/L (12-78) Alkaline Phosphatase 361 U/L (46-116) H Total Protein 5.8 G/DL (6.4-8.2) L Albumin 1.2 G/DL (3.4-5.0) L Globulin 4.6 g/dL Albumin/Globulin Ratio 0.3 (1.0-2.7) L Microbiology Date/Time Source Procedure Growth Status 07/30/18 11:55 Abdominal Abscess Gram Stain - Final Resulted 07/30/18 11:55 Abdominal Abscess Aerobic Culture Pending Resulted Height (Feet): 5 Height (Inches): 6.00 Weight (Pounds): 180 General Appearance: WD/WN, no apparent distress, alert Cardiovascular: normal rate Respiratory/Chest: normal breath sounds, no respiratory distress Abdominal Exam: normal bowel sounds, non tender, soft Extremities: normal range of motion, non-tender Rosangela Mota NP Jul 31, 2018 10:44
[2018-07-31] MEDS: Cefepime HCl 2 GM in D5W 110 ML IV SCH (11:46)
[2018-07-31 12:00] VITALS: BP 132/66
--- NOTE | 2018-07-31 12:55 | Pulmonology Progress Note ---
Assessment/Plan Problems: (1) Liver abscess (2) Mass of multiple sites of liver (3) Sepsis (4) Intractable nausea and vomiting (5) Anemia (6) History of hypertension (7) UTI (urinary tract infection) (8) Esophageal varices Assessment/Plan all reviewed for CT guided drainage of liver abscess done yesterday, cultures pending f/u WBC f/u EGD and colonoscopy results f/u tumor markers on Venofer check urine cultures f/u ID recommendations dvt prophylaxis. Subjective ROS Limited/Unobtainable: No Constitutional: Reports: no symptoms HEENT: Repors: no symptoms Respiratory: Reports: no symptoms Allergies: Coded Allergies: No Known Allergies (Unverified , 07/26/18) Objective Last 24 Hour Vital Signs Date Time Temp Pulse Resp B/P (MAP) Pulse Ox O2 Delivery O2 Flow Rate FiO2 07/31/18 12:00 98.2 92 20 132/66 (88) 24 07/31/18 09:00 Nasal Cannula 2.0 07/31/18 08:00 97.8 95 20 136/74 (94) 97 07/31/18 07:35 Nasal Cannula 2.0 28 07/31/18 07:35 99 Nasal Cannula 2.0 28 07/31/18 07:35 80 18 Nasal Cannula 2.0 28 07/31/18 04:00 98.7 95 18 126/74 (91) 97 07/31/18 00:00 98.8 93 18 130/62 (84) 100 07/30/18 21:00 Nasal Cannula 2.0 07/30/18 20:00 98.0 93 18 132/70 (90) 98 07/30/18 18:50 Nasal Cannula 2.0 28 07/30/18 18:50 99 Nasal Cannula 2.0 28 07/30/18 18:50 77 18 Nasal Cannula 2.0 28 07/30/18 16:00 98.8 94 18 131/68 (89) 99 07/30/18 14:45 98.4 Intake and Output 07/30/18 07/31/18 18:59 06:59 Intake Total 1350 ml 610 ml Balance 1350 ml 610 ml Intake Oral 1240 ml IV Total 110 ml 610 ml # Voids 6 # Bowel Movements 2 Objective General Appearance: WD/WN Lines, tubes and drains: peripheral HEENT: normocephalic, atraumatic Neck: non-tender, normal alignment Respiratory/Chest: lungs clear, normal breath sounds Breasts: no masses Cardiovascular/Chest: normal peripheral pulses, normal rate Abdomen: normal bowel sounds Genitourinary/Rectal: normal genital exam Extremities: normal range of motion Skin Exam: normal pigmentation 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 Resulted 07/30/18 11:55 Abdominal Abscess Gram Stain - Final Resulted 07/30/18 11:55 Abdominal Abscess Aerobic Culture Pending Resulted Laboratory Tests 07/31/18 05:55: White Blood Count 19.4H, Red Blood Count 3.17L, Hemoglobin 8.9L, Hematocrit 26.7L, Mean Corpuscular Volume 84, Mean Corpuscular Hemoglobin 28.2, Mean Corpuscular Hemoglobin Concent 33.4, Red Cell Distribution Width 13.3, Platelet Count 566H, Mean Platelet Volume 5.6L, Neutrophils (%) (Auto) , Lymphocytes (%) (Auto) , Monocytes (%) (Auto) , Eosinophils (%) (Auto) , Basophils (%) (Auto) , Differential Total Cells Counted 100, Neutrophils % (Manual) 82H, Lymphocytes % (Manual) 12L, Monocytes % (Manual) 5, Eosinophils % (Manual) 0, Basophils % ( Manual) 1, Band Neutrophils 0, Platelet Estimate IncreasedH, Platelet Morphology Normal, Hypochromasia 2+, Anisocytosis 1+, Spherocytes 2+, Sodium Level 137, Potassium Level 4.4, Chloride Level 106, Carbon Dioxide Level 24, Anion Gap 7, Blood Urea Nitrogen 7, Creatinine 0.8, Estimat Glomerular Filtration Rate > 60, Glucose Level 101, Calcium Level 7.8L, Total Bilirubin 0.5 , Aspartate Amino Transf (AST/SGOT) 44H, Alanine Aminotransferase (ALT/SGPT) 47 , Alkaline Phosphatase 361H, Total Protein 5.8L, Albumin 1.2L, Globulin 4.6, Albumin/Globulin Ratio 0.3L Current Medications Medications (Trade) Dose Ordered Sig/Jose Route PRN Reason Start Time Stop Time Status Last Admin Dose Admin Acetaminophen (Tylenol) 650 mg Q4H PRN ORAL T>100.5 OR Mild Pain 07/31/18 10:49 08/25/18 18:48 Albuterol/ Ipratropium (Albuterol/ Ipratropium) 3 ml Q4H PRN HHN Shortness of Breath 07/27/18 18:49 07/31/18 18:48 Cefepime HCl 2 gm/ Dextrose 110 ml @ 220 mls/hr Q24H IV 07/28/18 12:00 08/02/18 11:59 07/31/18 11:46 Chlorhexidine Gluconate (Maria Guadalupe-Hex 2%) 1 applic DAILY@2000 TOPIC 07/30/18 20:00 08/29/18 19:59 Dextrose/Sodium Chloride 1,000 ml @ 50 mls/hr Q20H IV 07/27/18 20:00 08/26/18 19:59 07/30/18 16:53 Heparin Sodium (Porcine) (Heparin 5000 units/ml) 5,000 units EVERY 12 HOURS SUBQ 07/27/18 21:00 08/25/18 20:59 07/30/18 21:37 Heparin Sodium/ Sodium Chloride (Heparin 1000 units/500ml Premix) 1,000 unit ONCE PRN IV picc line placement 07/30/18 19:30 08/01/18 19:29 Iron Sucrose 100 mg/Sodium Chloride 60 ml @ 240 mls/hr BEDTIME IV 07/27/18 21:00 07/31/18 21:14 07/30/18 21:36 Lidocaine HCl (Xylocaine 1% 30ml) 30 ml ONCE PRN INJ picc line placement 07/30/18 19:30 08/01/18 19:29 Metronidazole 100 ml @ 100 mls/hr Q8HR IVPB 07/27/18 22:00 08/02/18 14:59 07/31/18 06:00 Morphine Sulfate (Morphine Sulfate) 2 mg Q4H PRN IVP Moderate Pain (Pain Scale 4-6) 07/27/18 18:49 08/02/18 18:48 07/30/18 00:36 Ondansetron HCl (Zofran) 4 mg Q6H PRN IVP Nausea & Vomiting 07/27/18 18:49 08/25/18 18:48 Pantoprazole (Protonix) 40 mg DAILY ORAL 07/28/18 09:00 08/27/18 08:59 07/31/18 08:17 Phenazopyridine HCl (Pyridium) 100 mg DAILYPRN PRN ORAL dysuria 07/27/18 18:50 08/26/18 18:49 Polyethylene Glycol (Miralax) 17 gm DAILYPRN PRN ORAL Constipation 07/27/18 18:50 08/26/18 18:49 Temazepam (Restoril) 15 mg HSPRN PRN ORAL Insomnia 07/27/18 21:00 08/03/18 20:59 Kirsten Leonard MD Jul 31, 2018 12:55
--- NOTE | 2018-07-31 13:00 | NUR ---
NURSE NOTES: PT BACK ON UNIT. PT STATES HER RIGHT ABDOMEN PAIN AND NAUSEA HAS SUBSIDE. IN NO APPARENT DISTRESS AT THIS TIME. RIGHT UPPER ARM PICC LINE DOUBLE LUMEN INTACT. VSS. WILL CONTINUE TO MONITOR.
--- NOTE | 2018-07-31 13:30 | NUR ---
NURSE NOTES: PT REFUSED PHYSICAL THERAPY AT THIS TIME. PT STATES SHE IS TOO FATIGUED AT THIS TIME. PT STATES SHE HAS BEEN DOING EXERCISES IN BED. PT ENCOURAGED TO SIT UP AND REPOSITION SELF IN BED TO PREVENT BED SORES. PT VERBALIZED UNDERSTANDING.
--- NOTE | 2018-07-31 13:39 | Diagnostic Imaging Report ---
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 The right upper extremity was prepped with alcohol. All elements of maximal sterile barrier technique were followed including usage of a cap, mask, sterile gown, sterile gloves, hand hygiene and a large sterile sheet. Sonographic evaluation of the upper extremity was performed demonstrating a patent and compressible basilic vein. Access was obtained under real-time ultrasound guidance (with utilization of sterile gel and sterile probe cover) and digital image was saved and archived. An .018 wire was introduced. Needle exchanged for a 5 [place] peel-away sheath. Measurements were obtained. A 5 [place] dual-lumen Power PICC line catheter was cut to 38 cm and introduced over the wire. Peel-away sheath and wire were removed.Catheter was secured to the skin using 2-0 Prolene suture. Both ports aspirate and flush easily. A single fluoroscopic image shows the distal tip in the superior vena cava. Total fluoroscopic time 18 seconds Impression: Successful placement of an upper extremity PICC line catheter
--- NOTE | 2018-07-31 15:01 | Nephrology Progress Note ---
Assessment/Plan Problem List: (1) Hyponatremia (2) Hypoalbuminemia (3) History of hypertension (4) Anemia (5) Intractable nausea and vomiting (6) Mass of multiple sites of liver Assessment Leukocytosis persists Proteinuria and HypoAlbuminemia: Etiology ? HypoNatremia , likely depletional Liver disease, Mass, Abcess... other conditions: (1) Intractable nausea and vomiting, abdominal pain , diarrhea (2) Sepsis, leukocytosis (3) Anemia (4) History of hypertension (5) UTI (urinary tract infection) Plan stable from renal stand GI fofana urine studies Anemia fofana monitor renal parameters and LFTs Keep BP in check CT: Multifocal liver hypodensities suspicious for abscess. Differential diagnosis includes metastatic neoplasm. Portal vein thrombosis. 3 cm hypodensity in the spleen nonspecific. This could be a mass or abscess. Left renal cysts. Minimal free fluid. Diverticulosis of the colon. Posterior basilar atelectasis versus pneumonia. Subjective ROS Limited/Unobtainable: No Constitutional: Reports: malaise Objective Objective Last 24 Hour Vital Signs Date Time Temp Pulse Resp B/P (MAP) Pulse Ox O2 Delivery O2 Flow Rate FiO2 07/31/18 12:00 98.2 92 20 132/66 (88) 24 07/31/18 09:00 Nasal Cannula 2.0 07/31/18 08:00 97.8 95 20 136/74 (94) 97 07/31/18 07:35 Nasal Cannula 2.0 28 07/31/18 07:35 99 Nasal Cannula 2.0 28 07/31/18 07:35 80 18 Nasal Cannula 2.0 28 07/31/18 04:00 98.7 95 18 126/74 (91) 97 07/31/18 00:00 98.8 93 18 130/62 (84) 100 07/30/18 21:00 Nasal Cannula 2.0 07/30/18 20:00 98.0 93 18 132/70 (90) 98 07/30/18 18:50 Nasal Cannula 2.0 28 07/30/18 18:50 99 Nasal Cannula 2.0 28 07/30/18 18:50 77 18 Nasal Cannula 2.0 28 07/30/18 16:00 98.8 94 18 131/68 (89) 99 Intake and Output 07/30/18 07/31/18 19:00 07:00 Intake Total 1350 ml 760 ml Balance 1350 ml 760 ml Intake Oral 1240 ml IV Total 110 ml 760 ml # Voids 6 # Bowel Movements 2 Laboratory Tests 07/31/18 05:55: White Blood Count 19.4H, Red Blood Count 3.17L, Hemoglobin 8.9L, Hematocrit 26.7L, Mean Corpuscular Volume 84, Mean Corpuscular Hemoglobin 28.2, Mean Corpuscular Hemoglobin Concent 33.4, Red Cell Distribution Width 13.3, Platelet Count 566H, Mean Platelet Volume 5.6L, Neutrophils (%) (Auto) , Lymphocytes (%) (Auto) , Monocytes (%) (Auto) , Eosinophils (%) (Auto) , Basophils (%) (Auto) , Differential Total Cells Counted 100, Neutrophils % (Manual) 82H, Lymphocytes % (Manual) 12L, Monocytes % (Manual) 5, Eosinophils % (Manual) 0, Basophils % ( Manual) 1, Band Neutrophils 0, Platelet Estimate IncreasedH, Platelet Morphology Normal, Hypochromasia 2+, Anisocytosis 1+, Spherocytes 2+, Sodium Level 137, Potassium Level 4.4, Chloride Level 106, Carbon Dioxide Level 24, Anion Gap 7, Blood Urea Nitrogen 7, Creatinine 0.8, Estimat Glomerular Filtration Rate > 60, Glucose Level 101, Calcium Level 7.8L, Total Bilirubin 0.5 , Aspartate Amino Transf (AST/SGOT) 44H, Alanine Aminotransferase (ALT/SGPT) 47 , Alkaline Phosphatase 361H, Total Protein 5.8L, Albumin 1.2L, Globulin 4.6, Albumin/Globulin Ratio 0.3L Height (Feet): 5 Height (Inches): 6.00 Weight (Pounds): 180 General Appearance: no apparent distress Respiratory/Chest: decreased breath sounds Abdomen: distended Objective no change Luis E Deng MD Jul 31, 2018 15:01
[2018-07-31 16:00] VITALS: BP 145/78
--- NOTE | 2018-07-31 18:04 | Internal Med Progress Note ---
Subjective Date of Service: Jul 31, 2018 Physician Name Tobias Mauricio Attending Physician Eh Ann MD Current Medications Medications (Trade) Dose Ordered Sig/Jose Route PRN Reason Start Time Stop Time Status Last Admin Dose Admin Acetaminophen (Tylenol) 650 mg Q4H PRN ORAL T>100.5 OR Mild Pain 07/31/18 10:49 08/25/18 18:48 07/31/18 15:31 Albuterol/ Ipratropium (Albuterol/ Ipratropium) 3 ml Q4H PRN HHN Shortness of Breath 07/27/18 18:49 07/31/18 18:48 Cefepime HCl 2 gm/ Dextrose 110 ml @ 220 mls/hr Q24H IV 07/28/18 12:00 08/02/18 11:59 07/31/18 11:46 Chlorhexidine Gluconate (Maria Guadalupe-Hex 2%) 1 applic DAILY@2000 TOPIC 07/30/18 20:00 08/29/18 19:59 Dextrose/Sodium Chloride 1,000 ml @ 50 mls/hr Q20H IV 07/27/18 20:00 08/26/18 19:59 07/30/18 16:53 Heparin Sodium (Porcine) (Heparin 5000 units/ml) 5,000 units EVERY 12 HOURS SUBQ 07/27/18 21:00 08/25/18 20:59 07/30/18 21:37 Heparin Sodium/ Sodium Chloride (Heparin 1000 units/500ml Premix) 1,000 unit ONCE PRN IV picc line placement 07/30/18 19:30 08/01/18 19:29 Iron Sucrose 100 mg/Sodium Chloride 60 ml @ 240 mls/hr BEDTIME IV 07/27/18 21:00 07/31/18 21:14 07/30/18 21:36 Lidocaine HCl (Xylocaine 1% 30ml) 30 ml ONCE PRN INJ picc line placement 07/30/18 19:30 08/01/18 19:29 Metronidazole 100 ml @ 100 mls/hr Q8HR IVPB 07/27/18 22:00 08/02/18 14:59 07/31/18 14:26 Morphine Sulfate (Morphine Sulfate) 2 mg Q4H PRN IVP Moderate Pain (Pain Scale 4-6) 07/27/18 18:49 08/02/18 18:48 07/30/18 00:36 Ondansetron HCl (Zofran) 4 mg Q6H PRN IVP Nausea & Vomiting 07/27/18 18:49 08/25/18 18:48 Pantoprazole (Protonix) 40 mg DAILY ORAL 07/28/18 09:00 08/27/18 08:59 07/31/18 08:17 Phenazopyridine HCl (Pyridium) 100 mg DAILYPRN PRN ORAL dysuria 07/27/18 18:50 08/26/18 18:49 Polyethylene Glycol (Miralax) 17 gm DAILYPRN PRN ORAL Constipation 07/27/18 18:50 08/26/18 18:49 Temazepam (Restoril) 15 mg HSPRN PRN ORAL Insomnia 07/27/18 21:00 08/03/18 20:59 Allergies: Coded Allergies: No Known Allergies (Unverified , 07/26/18) ROS Limited/Unobtainable: No Constitutional: Reports: no symptoms HEENT: Reports: no symptoms Cardiovascular: Reports: no symptoms Respiratory: Reports: no symptoms Gastrointestinal/Abdominal: Reports: no symptoms Genitourinary: Reports: no symptoms Neurologic/Psychiatric: Reports: no symptoms Subjective 68 YO F admitted with nausea, vomiting and diarrhea. Cover for Int med-DR Ann. S/P endoscopy abd colonoscopy 07/27/18. S/P liver abscess aspiration and biopsy 07/30/18 Objective Last Vital Signs Date Time Temp Pulse Resp B/P (MAP) Pulse Ox O2 Delivery O2 Flow Rate FiO2 07/31/18 16:00 98.6 95 21 145/78 (100) 100 07/31/18 09:00 Nasal Cannula 2.0 07/31/18 07:35 28 Laboratory Tests Test 07/31/18 05:55 White Blood Count 19.4 K/UL (4.8-10.8) H Red Blood Count 3.17 M/UL (4.20-5.40) L Hemoglobin 8.9 G/DL (12.0-16.0) L Hematocrit 26.7 % (37.0-47.0) L Mean Corpuscular Volume 84 FL (80-99) Mean Corpuscular Hemoglobin 28.2 PG (27.0-31.0) Mean Corpuscular Hemoglobin Concent 33.4 G/DL (32.0-36.0) Red Cell Distribution Width 13.3 % (11.6-14.8) Platelet Count 566 K/UL (150-450) H Mean Platelet Volume 5.6 FL (6.5-10.1) L Neutrophils (%) (Auto) % (45.0-75.0) Lymphocytes (%) (Auto) % (20.0-45.0) Monocytes (%) (Auto) % (1.0-10.0) Eosinophils (%) (Auto) % (0.0-3.0) Basophils (%) (Auto) % (0.0-2.0) Differential Total Cells Counted 100 Neutrophils % (Manual) 82 % (45-75) H Lymphocytes % (Manual) 12 % (20-45) L Monocytes % (Manual) 5 % (1-10) Eosinophils % (Manual) 0 % (0-3) Basophils % (Manual) 1 % (0-2) Band Neutrophils 0 % (0-8) Platelet Estimate Increased H Platelet Morphology Normal Hypochromasia 2+ Anisocytosis 1+ Spherocytes 2+ Sodium Level 137 MMOL/L (136-145) Potassium Level 4.4 MMOL/L (3.5-5.1) Chloride Level 106 MMOL/L (98-107) Carbon Dioxide Level 24 MMOL/L (21-32) Anion Gap 7 mmol/L (5-15) Blood Urea Nitrogen 7 mg/dL (7-18) Creatinine 0.8 MG/DL (0.55-1.30) Estimat Glomerular Filtration Rate > 60 mL/min (>60) Glucose Level 101 MG/DL (74-106) Calcium Level 7.8 MG/DL (8.5-10.1) L Total Bilirubin 0.5 MG/DL (0.2-1.0) Aspartate Amino Transf (AST/SGOT) 44 U/L (15-37) H Alanine Aminotransferase (ALT/SGPT) 47 U/L (12-78) Alkaline Phosphatase 361 U/L (46-116) H Total Protein 5.8 G/DL (6.4-8.2) L Albumin 1.2 G/DL (3.4-5.0) L Globulin 4.6 g/dL Albumin/Globulin Ratio 0.3 (1.0-2.7) L Microbiology Date/Time Source Procedure Growth Status 4/29/19 11:55 Body Fluid AFB Specimen Processing Tissue - Final Resulted 07/30/18 11:55 Body Fluid Acid Fast Bacilli Smear - Final Resulted 07/30/18 11:55 Body Fluid Acid Fast Bacilli Culture Pending Resulted 07/30/18 11:00 Stool Stool Culture - Preliminary NORMAL FECAL MAXINE. Resulted 07/30/18 11:55 Abdominal Abscess Gram Stain - Final Resulted 07/30/18 11:55 Abdominal Abscess Aerobic Culture Pending Resulted Intake and Output 07/30/18 07/31/18 19:00 07:00 Intake Total 1350 ml 760 ml Balance 1350 ml 760 ml Intake Oral 1240 ml IV Total 110 ml 760 ml # Voids 6 # Bowel Movements 2 Objective PHYSICAL EXAMINATION: GENERAL: The patient is well-developed and well-nourished female, in no apparent distress. HEENT: Eyes, pupils are equal and responsive to light and accommodation. Extraocular movements are intact. NECK: Supple without lymphadenopathy. CHEST: Lungs are clear to auscultation bilaterally without wheezes or rales. CARDIOVASCULAR: Tachycardic. Regular rate and rhythm. S1 and S2 are normal without murmurs, rubs, or gallops. ABDOMEN: Soft. Tender to palpation in the left upper quadrant. Positive bowel sounds. No evidence of hepatosplenomegaly. Currently, no rebound or guarding noted. EXTREMITIES: Negative for clubbing, cyanosis, or edema. RECTAL/GENITAL: Refused. NEUROLOGIC: Cranial nerves II through XII are grossly intact without focal deficits. Motor strength is 5/5 bilaterally. Deep tendon reflexes are 2+ plantar. Assessment/Plan Assessment/Plan ASSESSMENT: This is a 68-year-old female. 1. Nausea with vomiting. 2. Diarrhea. 3. Abdominal pain. 4. Generalized weakness. 5. Fever. 6. Liver masses. 7. Elevated liver function tests. 8. Hypertension. 9. Leukocytosis. 10. gastric erosions 11. gastric ulcer 12. esophageal varices 13. Liver abscess TREATMENT: 1. Nausea/vomiting/diarrhea/abdominal pain. A Gastroenterology consultation has been obtained with Dr. Sixto Conner. We will follow recommendations of Gastroenterology. 2. Liver masses. These were ill-defined on the CT scan and Gastroenterology consultation has been obtained with Dr. Sixto Conner. A CT scan of the abdomen with contrast is pending. 3. Hypertension. The patient is currently hypotensive. 4. Leukocytosis/fever. An Infectious Disease consultation has been obtained with Dr. Milan. Antibiotics= Flagyl, and cefepime for 6 weeks per ID. 5. S/P liver abscess aspiration and biopsy-await cultures and path Tobias Mauricio MD Jul 31, 2018 18:04
--- NOTE | 2018-07-31 18:23 | Infectious Diseases Prog Note ---
Assessment/Plan Assessment/Plan Assessment: Sepsis- 2ry to Liver abscess now bacteremic -. sp sp drainage of liver abscess WndCx: P ( Gram stain: GNR ) -07/26 Bcx 04/06 Bacteroids -CT abd/p w/ : Multifocal liver hypodensities suspicious for abscess. Please correlate clinically. Differential diagnosis includes metastatic neoplasm. Portal vein thrombosis. 3 cm hypodensity in the spleen nonspecific. This could be a mass or abscess. Left renal cysts. Minimal free fluid. Diverticulosis of the colon.Posterior basilar atelectasis versus pneumonia.Gallbladder is contracted. -CT abd/p wo: Limited assessment of the GI tract, due to lack of enteric contrast administration. Trace free intraperitoneal fluid in the pelvis. No acute abdominal process otherwise Trace bilateral pleural effusions. Nonspecific mild thickening of Gerota's fascia. Multiple faint and ill-defined liver masses, not well demonstrated due to lack of IV contrast administration. These mostly appear to be demonstrate fluid attenuation, but are not well enough demonstrated to state for certain. Further evaluation with contrast CT if not contraindicated and ultrasound recommended Bulky pancreatic head, without definite discrete mass. Likewise, further evaluation with contrast CT would be useful to evaluate for possible underlying mass. Gallbladder is nondistended, but this wall appears somewhat edematous. Consider further evaluation with ultrasound if there is clinical suspicion for acute cholecystitis or gallstone disease -u/a wbc 0-2, nit neg, leuk +1 Low grade fever; Sp Leukocytosis; persistent -CXR: Retrocardiac atelectasis. No acute process otherwise Portal Hypertension w/ esophageal varices POrtal vein thrombosis -07/27 SP EGD/COlo: 1. Esophageal varices, grade 2 four columns. 2. Portal hypertensive gastropathy. 3. Multiple gastric erosions and 1 gastric ulceration. 4. Duodenal atrophy. 5. Internal and external hemorrhoids. 6. Diverticulosis. 7. Two colonic polyps, removed, see above for details. Elevated LFTs; improving -Abd US: Portal vein thrombosis with cavernous transformation.Abnormal liver. Please refer to the CT report.Poor evaluation of the spleen not well seen on this examination.Marked wall thickening of the gallbladder.Left renal cyst -acute hep panel, HIV ab sc neg HTN arthritis Plan: -Continue Cefepime # 6 and add Flagyl # 6 ( total duration 6 wks for liver abscess) -07/26 SP IV Vancomycin #1, Zosyn x1 -repeat 2 sets Bcx - Abscess Cx cultures (AFB, Fungal, bacterial) -f/u cx -Monitor CBC/CMP, temperatures -aspiration precautions -GI f/u Subjective Allergies: Coded Allergies: No Known Allergies (Unverified , 07/26/18) Subjective fever improving Objective Vital Signs Last 24 Hour Vital Signs Date Time Temp Pulse Resp B/P (MAP) Pulse Ox O2 Delivery O2 Flow Rate FiO2 07/31/18 16:00 98.6 95 21 145/78 (100) 100 07/31/18 12:00 98.2 92 20 132/66 (88) 96 07/31/18 09:00 Nasal Cannula 2.0 07/31/18 08:00 97.8 95 20 136/74 (94) 97 07/31/18 07:35 Nasal Cannula 2.0 28 07/31/18 07:35 99 Nasal Cannula 2.0 28 07/31/18 07:35 80 18 Nasal Cannula 2.0 28 07/31/18 04:00 98.7 95 18 126/74 (91) 97 07/31/18 00:00 98.8 93 18 130/62 (84) 100 07/30/18 21:00 Nasal Cannula 2.0 07/30/18 20:00 98.0 93 18 132/70 (90) 98 07/30/18 18:50 Nasal Cannula 2.0 28 07/30/18 18:50 99 Nasal Cannula 2.0 28 07/30/18 18:50 77 18 Nasal Cannula 2.0 28 Height (Feet): 5 Height (Inches): 6.00 Weight (Pounds): 180 HEENT: anicteric Respiratory/Chest: normal breath sounds Cardiovascular: regular rhythm Abdomen: soft, non tender Microbiology Date/Time Source Procedure Growth Status 07/30/18 11:55 Body Fluid AFB Specimen Processing Tissue - Final Resulted 07/30/18 11:55 Body Fluid Acid Fast Bacilli Smear - Final Resulted 07/30/18 11:55 Body Fluid Acid Fast Bacilli Culture Pending Resulted 07/30/18 11:00 Stool Stool Culture - Preliminary NORMAL FECAL MAXINE. Resulted 07/30/18 11:55 Abdominal Abscess Gram Stain - Final Resulted 07/30/18 11:55 Abdominal Abscess Aerobic Culture Pending Resulted Laboratory Tests Test 07/31/18 05:55 White Blood Count 19.4 K/UL (4.8-10.8) H Red Blood Count 3.17 M/UL (4.20-5.40) L Hemoglobin 8.9 G/DL (12.0-16.0) L Hematocrit 26.7 % (37.0-47.0) L Mean Corpuscular Volume 84 FL (80-99) Mean Corpuscular Hemoglobin 28.2 PG (27.0-31.0) Mean Corpuscular Hemoglobin Concent 33.4 G/DL (32.0-36.0) Red Cell Distribution Width 13.3 % (11.6-14.8) Platelet Count 566 K/UL (150-450) H Mean Platelet Volume 5.6 FL (6.5-10.1) L Neutrophils (%) (Auto) % (45.0-75.0) Lymphocytes (%) (Auto) % (20.0-45.0) Monocytes (%) (Auto) % (1.0-10.0) Eosinophils (%) (Auto) % (0.0-3.0) Basophils (%) (Auto) % (0.0-2.0) Differential Total Cells Counted 100 Neutrophils % (Manual) 82 % (45-75) H Lymphocytes % (Manual) 12 % (20-45) L Monocytes % (Manual) 5 % (1-10) Eosinophils % (Manual) 0 % (0-3) Basophils % (Manual) 1 % (0-2) Band Neutrophils 0 % (0-8) Platelet Estimate Increased H Platelet Morphology Normal Hypochromasia 2+ Anisocytosis 1+ Spherocytes 2+ Sodium Level 137 MMOL/L (136-145) Potassium Level 4.4 MMOL/L (3.5-5.1) Chloride Level 106 MMOL/L (98-107) Carbon Dioxide Level 24 MMOL/L (21-32) Anion Gap 7 mmol/L (5-15) Blood Urea Nitrogen 7 mg/dL (7-18) Creatinine 0.8 MG/DL (0.55-1.30) Estimat Glomerular Filtration Rate > 60 mL/min (>60) Glucose Level 101 MG/DL (74-106) Calcium Level 7.8 MG/DL (8.5-10.1) L Total Bilirubin 0.5 MG/DL (0.2-1.0) Aspartate Amino Transf (AST/SGOT) 44 U/L (15-37) H Alanine Aminotransferase (ALT/SGPT) 47 U/L (12-78) Alkaline Phosphatase 361 U/L (46-116) H Total Protein 5.8 G/DL (6.4-8.2) L Albumin 1.2 G/DL (3.4-5.0) L Globulin 4.6 g/dL Albumin/Globulin Ratio 0.3 (1.0-2.7) L Current Medications Medications (Trade) Dose Ordered Sig/Jose Route PRN Reason Start Time Stop Time Status Last Admin Dose Admin Acetaminophen (Tylenol) 650 mg Q4H PRN ORAL T>100.5 OR Mild Pain 07/31/18 10:49 08/25/18 18:48 07/31/18 15:31 Albuterol/ Ipratropium (Albuterol/ Ipratropium) 3 ml Q4H PRN HHN Shortness of Breath 07/27/18 18:49 07/31/18 18:48 Cefepime HCl 2 gm/ Dextrose 110 ml @ 220 mls/hr Q24H IV 07/28/18 12:00 08/02/18 11:59 07/31/18 11:46 Chlorhexidine Gluconate (Maria Guadalupe-Hex 2%) 1 applic DAILY@2000 TOPIC 07/30/18 20:00 08/29/18 19:59 Dextrose/Sodium Chloride 1,000 ml @ 50 mls/hr Q20H IV 07/27/18 20:00 08/26/18 19:59 07/30/18 16:53 Heparin Sodium (Porcine) (Heparin 5000 units/ml) 5,000 units EVERY 12 HOURS SUBQ 07/27/18 21:00 08/25/18 20:59 07/30/18 21:37 Heparin Sodium/ Sodium Chloride (Heparin 1000 units/500ml Premix) 1,000 unit ONCE PRN IV picc line placement 07/30/18 19:30 08/01/18 19:29 Iron Sucrose 100 mg/Sodium Chloride 60 ml @ 240 mls/hr BEDTIME IV 07/27/18 21:00 07/31/18 21:14 07/30/18 21:36 Lidocaine HCl (Xylocaine 1% 30ml) 30 ml ONCE PRN INJ picc line placement 07/30/18 19:30 5/1/19 19:29 Metronidazole 100 ml @ 100 mls/hr Q8HR IVPB 07/27/18 22:00 08/02/18 14:59 07/31/18 14:26 Morphine Sulfate (Morphine Sulfate) 2 mg Q4H PRN IVP Moderate Pain (Pain Scale 4-6) 07/27/18 18:49 08/02/18 18:48 07/30/18 00:36 Ondansetron HCl (Zofran) 4 mg Q6H PRN IVP Nausea & Vomiting 07/27/18 18:49 08/25/18 18:48 Pantoprazole (Protonix) 40 mg DAILY ORAL 07/28/18 09:00 08/27/18 08:59 07/31/18 08:17 Phenazopyridine HCl (Pyridium) 100 mg DAILYPRN PRN ORAL dysuria 07/27/18 18:50 08/26/18 18:49 Polyethylene Glycol (Miralax) 17 gm DAILYPRN PRN ORAL Constipation 07/27/18 18:50 08/26/18 18:49 Temazepam (Restoril) 15 mg HSPRN PRN ORAL Insomnia 07/27/18 21:00 08/03/18 20:59 Billy Mackey MD Jul 31, 2018 18:23
[2018-07-31] MEDS ORDERED: Tobradex Opth Susp 2.5ml LEFT EYE ONE (18:30)
--- NOTE | 2018-07-31 19:32 | NUR ---
HAND-OFF: Report given to Kaya TSAI RN.
[2018-07-31 20:00] VITALS: BP 126/63
--- NOTE | 2018-07-31 20:30 | NUR ---
NURSE NOTES: Pt alert oriented x4. no acute distress noted. pt lying comfortable in bed side rails up bed in lowest position. Pt instructed to call for assistance before getting out of bed. Pt verbalized understanding pt has 02@2LiterNC. PICC to RUE intact. D5NS@50ml infusing. no c/o NV at this time
--- NOTE | 2018-07-31 22:14 | NUR ---
NURSE NOTES: Pt is in bed, awake and alert. No acute distress noted. Pt is on 2L n/c. JULIO PICC line asymptomatic, patent, flushed both lumen. Pt is frequently getting up to bedside commode to urinate. Bed locked low in position,side rails up and call light within reach. Fall precaution in place. Bed alarm on. Pt instructed to call before getting out of bed,. Pt will be monitored. Sahil Briones RN will be assisting in the care of patient.
[2018-07-31] MEDS: Iron Sucrose 100 MG in NS 55 ML IV SCH (22:47)
[2018-07-31] MEDS: Latanoprost 0.005% Opth 2.5ml Soln RIGHT EYE SCH (22:48)
[2018-07-31] MEDS: Dyna-Hex 2% Top Sol 2oz TOPIC SCH (22:48)
[2018-08-01] VITALS: BP 124/73
[2018-08-01] MEDS: D5NS 1,000 ML IV SCH ×2 (00:50→17:24)
[2018-08-01 04:00] VITALS: BP 132/75
[2018-08-01 07:20] LABS: ANION GAP 7 mmol/L (5-15); BLOOD UREA NITROGEN 6 mg/dL (7-18); CALCIUM 7.7 MG/DL (8.5-10.1); CARBON DIOXIDE 24 MMOL/L (21-32); CHLORIDE 106 MMOL/L (98-107); CREATININE 0.8 MG/DL (0.55-1.30); POTASSIUM 4.5 MMOL/L (3.5-5.1); SODIUM 137 MMOL/L (136-145)
[2018-08-01 07:28] LABS: HEMATOCRIT 26.1 % (37.0-47.0); HEMOGLOBIN 8.6 G/DL (12.0-16.0); MEAN CORPUSCULAR VOLUME 84 FL (80-99); PLATELET COUNT 549 K/UL (150-450); RED CELL DISTRIBUTION WIDTH 13.1 % (11.6-14.8); WHITE BLOOD COUNT 18.3 K/UL (4.8-10.8)
--- NOTE | 2018-08-01 07:30 | NUR ---
HAND-OFF: Report given to Gilberto Apodaca RN.Pt is in bed, Vitas stable. Informed Gilberto to take pt's eye drop to the pharmacy to be dispensed. Fall risk was communicated.
[2018-08-01 08:00] VITALS: BP 141/78
[2018-08-01] MEDS: Tobradex Opth Susp 2.5ml LEFT EYE SCH ×3 (08:05→17:23)
[2018-08-01] MEDS: Heparin 5000 units/ml inj SUBQ SCH ×2 (08:13→20:40)
--- NOTE | 2018-08-01 10:49 | GI Progress Note ---
Assessment/Plan Problems: (1) Mass of multiple sites of liver ICD Codes: R16.0 - Hepatomegaly, not elsewhere classified SNOMED: 764152201 (2) Gastric erosion ICD Codes: K25.9 - Gastric ulcer, unspecified as acute or chronic, without hemorrhage or perforation SNOMED: 239610191 (3) Esophageal varices ICD Codes: I85.00 - Esophageal varices without bleeding SNOMED: 90403672 (4) Portal vein thrombosis ICD Codes: I81 - Portal vein thrombosis SNOMED: 41741647 (5) Iron deficiency anemia ICD Codes: D50.9 - Iron deficiency anemia, unspecified SNOMED: 55551352 (6) Abdominal pain ICD Codes: R10.9 - Unspecified abdominal pain SNOMED: 07299140 (7) Intractable nausea and vomiting ICD Codes: R11.2 - Nausea with vomiting, unspecified SNOMED: 315508589 Status: stable Status Narrative Discussed with Dr. Conner Assessment/Plan CT and us reviewed >> multiple liver abscess Status post liver biopsy of the abscess Pathology from endoscopy reviewed, H. pylori gastritis Occult blood stool positive SUMMARY OF FINDINGS: EGD and colonoscopy 1. Esophageal varices, grade 2 four columns. 2. Portal hypertensive gastropathy. 3. Multiple gastric erosions and 1 gastric ulceration. 4. Duodenal atrophy. 5. Internal and external hemorrhoids. 6. Diverticulosis. 7. Two colonic polyps, removed, see above for details ppi fu tumor markers>>>> normal CEA fu ID recs>>> on abx fu path ? need for anticoagulation repeat labs Outpatient treatment for H. pylori The patient was seen and examined at bedside and all new and available data was reviewed in the patients chart. I agree with the above findings, impression and plan. (Patient seen earlier today. Signature stamp does not reflect patient encounter time.). - Sixto Conner MD Subjective Subjective Has complaint of nausea Objective Last 24 Hour Vital Signs Date Time Temp Pulse Resp B/P (MAP) Pulse Ox O2 Delivery O2 Flow Rate FiO2 08/01/18 09:00 Nasal Cannula 2.0 08/01/18 08:00 96.8 93 22 141/78 (99) 98 08/01/18 04:00 97.5 83 18 132/75 (94) 100 08/01/18 00:00 100.0 94 18 124/73 (90) 100 07/31/18 21:00 Nasal Cannula 2.0 07/31/18 20:00 96.5 91 18 126/63 (84) 99 07/31/18 16:00 98.6 95 21 145/78 (100) 100 07/31/18 12:00 98.2 92 20 132/66 (88) 96 Intake and Output 07/31/18 08/01/18 19:00 07:00 Intake Total 1460 ml 600 ml Balance 1460 ml 600 ml Intake Oral 900 ml IV Total 560 ml 600 ml # Voids 9 3 # Bowel Movements 9 3 Laboratory Tests Test 08/01/18 06:00 White Blood Count 18.3 K/UL (4.8-10.8) H Red Blood Count 3.10 M/UL (4.20-5.40) L Hemoglobin 8.6 G/DL (12.0-16.0) L Hematocrit 26.1 % (37.0-47.0) L Mean Corpuscular Volume 84 FL (80-99) Mean Corpuscular Hemoglobin 27.8 PG (27.0-31.0) Mean Corpuscular Hemoglobin Concent 33.1 G/DL (32.0-36.0) Red Cell Distribution Width 13.1 % (11.6-14.8) Platelet Count 549 K/UL (150-450) H Mean Platelet Volume 5.5 FL (6.5-10.1) L Neutrophils (%) (Auto) % (45.0-75.0) Lymphocytes (%) (Auto) % (20.0-45.0) Monocytes (%) (Auto) % (1.0-10.0) Eosinophils (%) (Auto) % (0.0-3.0) Basophils (%) (Auto) % (0.0-2.0) Differential Total Cells Counted 100 Neutrophils % (Manual) 87 % (45-75) H Lymphocytes % (Manual) 9 % (20-45) L Monocytes % (Manual) 4 % (1-10) Eosinophils % (Manual) 0 % (0-3) Basophils % (Manual) 0 % (0-2) Band Neutrophils 0 % (0-8) Platelet Estimate Increased H Platelet Morphology Normal Hypochromasia 1+ Sodium Level 137 MMOL/L (136-145) Potassium Level 4.5 MMOL/L (3.5-5.1) Chloride Level 106 MMOL/L (98-107) Carbon Dioxide Level 24 MMOL/L (21-32) Anion Gap 7 mmol/L (5-15) Blood Urea Nitrogen 6 mg/dL (7-18) L Creatinine 0.8 MG/DL (0.55-1.30) Estimat Glomerular Filtration Rate > 60 mL/min (>60) Glucose Level 103 MG/DL (74-106) Calcium Level 7.7 MG/DL (8.5-10.1) L Height (Feet): 5 Height (Inches): 6.00 Weight (Pounds): 202 General Appearance: WD/WN, no apparent distress, alert Cardiovascular: normal rate Respiratory/Chest: normal breath sounds, no respiratory distress Abdominal Exam: normal bowel sounds, non tender, soft Extremities: normal range of motion, non-tender Rosangela Mota NP August 01, 2018 10:49
[2018-08-01 12:00] VITALS: BP 143/71
[2018-08-01] MEDS: Cefepime HCl 2 GM in D5W 110 ML IV SCH (12:33)
--- NOTE | 2018-08-01 12:44 | Internal Med Progress Note ---
Subjective Date of Service: August 01, 2018 Physician Name MauricioTobias Attending Physician Eh Ann MD Current Medications Medications (Trade) Dose Ordered Sig/Jose Route PRN Reason Start Time Stop Time Status Last Admin Dose Admin Acetaminophen (Tylenol) 650 mg Q4H PRN ORAL T>100.5 OR Mild Pain 07/31/18 10:49 08/25/18 18:48 08/01/18 02:37 Cefepime HCl 2 gm/ Dextrose 110 ml @ 220 mls/hr Q24H IV 07/28/18 12:00 08/02/18 11:59 08/01/18 12:33 Chlorhexidine Gluconate (Maria Guadalupe-Hex 2%) 1 applic DAILY@2000 TOPIC 07/30/18 20:00 08/29/18 19:59 07/31/18 22:48 Dextrose/Sodium Chloride 1,000 ml @ 50 mls/hr Q20H IV 07/27/18 20:00 08/26/18 19:59 08/01/18 00:50 Heparin Sodium (Porcine) (Heparin 5000 units/ml) 5,000 units EVERY 12 HOURS SUBQ 07/27/18 21:00 08/25/18 20:59 08/01/18 08:13 Heparin Sodium/ Sodium Chloride (Heparin 1000 units/500ml Premix) 1,000 unit ONCE PRN IV picc line placement 07/30/18 19:30 08/01/18 19:29 Latanoprost (Xalatan) 1 drop QHS RIGHT EYE 07/31/18 21:00 08/30/18 20:59 07/31/18 22:48 Lidocaine HCl (Xylocaine 1% 30ml) 30 ml ONCE PRN INJ picc line placement 07/30/18 19:30 08/01/18 19:29 Metronidazole 100 ml @ 100 mls/hr Q8HR IVPB 07/27/18 22:00 08/02/18 14:59 08/01/18 05:51 Morphine Sulfate (Morphine Sulfate) 2 mg Q4H PRN IVP Moderate Pain (Pain Scale 4-6) 07/27/18 18:49 08/02/18 18:48 07/30/18 00:36 Ondansetron HCl (Zofran) 4 mg Q6H PRN IVP Nausea & Vomiting 07/27/18 18:49 08/25/18 18:48 Pantoprazole (Protonix) 40 mg DAILY ORAL 07/28/18 09:00 08/27/18 08:59 08/01/18 08:05 Patient Own Medication (Patient's Own Med) 1 ea BID OPHTHALM 07/31/18 18:30 08/30/18 18:29 UNV Phenazopyridine HCl (Pyridium) 100 mg DAILYPRN PRN ORAL dysuria 07/27/18 18:50 08/26/18 18:49 Polyethylene Glycol (Miralax) 17 gm DAILYPRN PRN ORAL Constipation 07/27/18 18:50 08/26/18 18:49 Temazepam (Restoril) 15 mg HSPRN PRN ORAL Insomnia 07/27/18 21:00 08/03/18 20:59 Tobramycin/ Dexamethasone (Tobradex Opth Susp) 1 drop TID LEFT EYE 08/01/18 09:00 08/31/18 08:59 08/01/18 12:33 Allergies: Coded Allergies: No Known Allergies (Unverified , 07/26/18) ROS Limited/Unobtainable: No Constitutional: Reports: no symptoms HEENT: Reports: no symptoms Cardiovascular: Reports: no symptoms Respiratory: Reports: no symptoms Gastrointestinal/Abdominal: Reports: no symptoms Genitourinary: Reports: no symptoms Neurologic/Psychiatric: Reports: no symptoms Subjective 68 YO F admitted with nausea, vomiting and diarrhea. Cover for Int med-DR Ann. S/P endoscopy abd colonoscopy 07/27/18. S/P liver abscess aspiration and biopsy 07/30/18 Objective Last Vital Signs Date Time Temp Pulse Resp B/P (MAP) Pulse Ox O2 Delivery O2 Flow Rate FiO2 08/01/18 09:00 Nasal Cannula 2.0 08/01/18 08:00 96.8 93 22 141/78 (99) 98 07/31/18 07:35 28 Laboratory Tests Test 08/01/18 06:00 White Blood Count 18.3 K/UL (4.8-10.8) H Red Blood Count 3.10 M/UL (4.20-5.40) L Hemoglobin 8.6 G/DL (12.0-16.0) L Hematocrit 26.1 % (37.0-47.0) L Mean Corpuscular Volume 84 FL (80-99) Mean Corpuscular Hemoglobin 27.8 PG (27.0-31.0) Mean Corpuscular Hemoglobin Concent 33.1 G/DL (32.0-36.0) Red Cell Distribution Width 13.1 % (11.6-14.8) Platelet Count 549 K/UL (150-450) H Mean Platelet Volume 5.5 FL (6.5-10.1) L Neutrophils (%) (Auto) % (45.0-75.0) Lymphocytes (%) (Auto) % (20.0-45.0) Monocytes (%) (Auto) % (1.0-10.0) Eosinophils (%) (Auto) % (0.0-3.0) Basophils (%) (Auto) % (0.0-2.0) Differential Total Cells Counted 100 Neutrophils % (Manual) 87 % (45-75) H Lymphocytes % (Manual) 9 % (20-45) L Monocytes % (Manual) 4 % (1-10) Eosinophils % (Manual) 0 % (0-3) Basophils % (Manual) 0 % (0-2) Band Neutrophils 0 % (0-8) Platelet Estimate Increased H Platelet Morphology Normal Hypochromasia 1+ Sodium Level 137 MMOL/L (136-145) Potassium Level 4.5 MMOL/L (3.5-5.1) Chloride Level 106 MMOL/L (98-107) Carbon Dioxide Level 24 MMOL/L (21-32) Anion Gap 7 mmol/L (5-15) Blood Urea Nitrogen 6 mg/dL (7-18) L Creatinine 0.8 MG/DL (0.55-1.30) Estimat Glomerular Filtration Rate > 60 mL/min (>60) Glucose Level 103 MG/DL (74-106) Calcium Level 7.7 MG/DL (8.5-10.1) L Microbiology Date/Time Source Procedure Growth Status 07/30/18 11:55 Body Fluid AFB Specimen Processing Tissue - Final Resulted 07/30/18 11:55 Body Fluid Acid Fast Bacilli Smear - Final Resulted 07/30/18 11:55 Body Fluid Acid Fast Bacilli Culture Pending Resulted 07/30/18 11:00 Stool Stool Culture - Preliminary NO SALMONELLA,SHIGELLA OR CAMPYLOBACT... Resulted 07/30/18 11:55 Abdominal Abscess Gram Stain - Final Resulted 07/30/18 11:55 Abdominal Abscess Aerobic Culture Pending Resulted Intake and Output 07/31/18 08/01/18 18:59 06:59 Intake Total 1560 ml 650 ml Balance 1560 ml 650 ml Intake Oral 900 ml IV Total 660 ml 650 ml # Voids 9 3 # Bowel Movements 9 3 Objective PHYSICAL EXAMINATION: GENERAL: The patient is well-developed and well-nourished female, in no apparent distress. HEENT: Eyes, pupils are equal and responsive to light and accommodation. Extraocular movements are intact. NECK: Supple without lymphadenopathy. CHEST: Lungs are clear to auscultation bilaterally without wheezes or rales. CARDIOVASCULAR: Tachycardic. Regular rate and rhythm. S1 and S2 are normal without murmurs, rubs, or gallops. ABDOMEN: Soft. Tender to palpation in the left upper quadrant. Positive bowel sounds. No evidence of hepatosplenomegaly. Currently, no rebound or guarding noted. EXTREMITIES: Negative for clubbing, cyanosis, or edema. RECTAL/GENITAL: Refused. NEUROLOGIC: Cranial nerves II through XII are grossly intact without focal deficits. Motor strength is 5/5 bilaterally. Deep tendon reflexes are 2+ plantar. Assessment/Plan Assessment/Plan ASSESSMENT: This is a 68-year-old female. 1. Nausea with vomiting. 2. Diarrhea. 3. Abdominal pain. 4. Generalized weakness. 5. Fever. 6. Liver masses. 7. Elevated liver function tests. 8. Hypertension. 9. Leukocytosis. 10. gastric erosions 11. gastric ulcer 12. esophageal varices 13. Liver abscess 14. Sepsis=Bacteroides TREATMENT: 1. Nausea/vomiting/diarrhea/abdominal pain. A Gastroenterology consultation has been obtained with Dr. Sixto Conner. We will follow recommendations of Gastroenterology. 2. Liver masses. These were ill-defined on the CT scan and Gastroenterology consultation has been obtained with Dr. Sixto Conner. A CT scan of the abdomen with contrast is pending. 3. Hypertension. The patient is currently hypotensive. 4. Leukocytosis/fever. An Infectious Disease consultation has been obtained with Dr. Milan. Antibiotics= Flagyl, and cefepime for 6 weeks per ID. 5. S/P liver abscess aspiration and biopsy-await cultures and path Tobias Mauricio MD August 01, 2018 12:44
--- NOTE | 2018-08-01 13:37 | Pulmonology Progress Note ---
Assessment/Plan Problems: (1) Liver abscess (2) Mass of multiple sites of liver (3) Sepsis (4) Intractable nausea and vomiting (5) Anemia (6) History of hypertension (7) UTI (urinary tract infection) (8) Esophageal varices Assessment/Plan eating well all reviewed for CT guided drainage of liver abscess done , cultures pending f/u WBC f/u EGD and colonoscopy results f/u tumor markers on Venofer check urine cultures f/u ID recommendations dvt prophylaxis. Subjective ROS Limited/Unobtainable: No Constitutional: Reports: no symptoms HEENT: Repors: no symptoms Allergies: Coded Allergies: No Known Allergies (Unverified , 07/26/18) Objective Last 24 Hour Vital Signs Date Time Temp Pulse Resp B/P (MAP) Pulse Ox O2 Delivery O2 Flow Rate FiO2 08/01/18 12:48 Nasal Cannula 3.0 32 08/01/18 12:48 84 20 Nasal Cannula 3.0 32 08/01/18 12:48 97 Nasal Cannula 3.0 32 08/01/18 12:00 97.5 94 20 143/71 (95) 100 08/01/18 09:00 Nasal Cannula 2.0 08/01/18 08:00 96.8 93 22 141/78 (99) 98 08/01/18 04:00 97.5 83 18 132/75 (94) 100 08/01/18 00:00 100.0 94 18 124/73 (90) 100 07/31/18 21:00 Nasal Cannula 2.0 07/31/18 20:00 96.5 91 18 126/63 (84) 99 07/31/18 16:00 98.6 95 21 145/78 (100) 100 Intake and Output 07/31/18 08/01/18 18:59 06:59 Intake Total 1560 ml 650 ml Balance 1560 ml 650 ml Intake Oral 900 ml IV Total 660 ml 650 ml # Voids 9 3 # Bowel Movements 9 3 Objective General Appearance: WD/WN Lines, tubes and drains: peripheral HEENT: normocephalic, atraumatic Neck: non-tender, normal alignment Respiratory/Chest: lungs clear, normal breath sounds Breasts: no masses Cardiovascular/Chest: normal peripheral pulses, normal rate Abdomen: normal bowel sounds Genitourinary/Rectal: normal genital exam Extremities: normal range of motion Skin Exam: normal pigmentation 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 Resulted 07/30/18 11:55 Abdominal Abscess Gram Stain - Final Resulted 07/30/18 11:55 Abdominal Abscess Aerobic Culture Pending Resulted Laboratory Tests 08/01/18 06:00: White Blood Count 18.3H, Red Blood Count 3.10L, Hemoglobin 8.6L, Hematocrit 26.1L, Mean Corpuscular Volume 84, Mean Corpuscular Hemoglobin 27.8, Mean Corpuscular Hemoglobin Concent 33.1, Red Cell Distribution Width 13.1, Platelet Count 549H, Mean Platelet Volume 5.5L, Neutrophils (%) (Auto) , Lymphocytes (%) (Auto) , Monocytes (%) (Auto) , Eosinophils (%) (Auto) , Basophils (%) (Auto) , Differential Total Cells Counted 100, Neutrophils % (Manual) 87H, Lymphocytes % (Manual) 9L, Monocytes % (Manual) 4, Eosinophils % (Manual) 0, Basophils % ( Manual) 0, Band Neutrophils 0, Platelet Estimate IncreasedH, Platelet Morphology Normal, Hypochromasia 1+, Sodium Level 137, Potassium Level 4.5, Chloride Level 106, Carbon Dioxide Level 24, Anion Gap 7, Blood Urea Nitrogen 6L , Creatinine 0.8, Estimat Glomerular Filtration Rate > 60, Glucose Level 103, Calcium Level 7.7L Current Medications Medications (Trade) Dose Ordered Sig/Jose Route PRN Reason Start Time Stop Time Status Last Admin Dose Admin Acetaminophen (Tylenol) 650 mg Q4H PRN ORAL T>100.5 OR Mild Pain 07/31/18 10:49 08/25/18 18:48 08/01/18 02:37 Cefepime HCl 2 gm/ Dextrose 110 ml @ 220 mls/hr Q24H IV 07/28/18 12:00 08/02/18 11:59 08/01/18 12:33 Chlorhexidine Gluconate (Maria Guadalupe-Hex 2%) 1 applic DAILY@1999 TOPIC 07/30/18 20:00 08/29/18 19:59 07/31/18 22:48 Dextrose/Sodium Chloride 1,000 ml @ 50 mls/hr Q20H IV 07/27/18 20:00 08/26/18 19:59 08/01/18 00:50 Heparin Sodium (Porcine) (Heparin 5000 units/ml) 5,000 units EVERY 12 HOURS SUBQ 07/27/18 21:00 08/25/18 20:59 08/01/18 08:13 Heparin Sodium/ Sodium Chloride (Heparin 1000 units/500ml Premix) 1,000 unit ONCE PRN IV picc line placement 07/30/18 19:30 08/01/18 19:29 Latanoprost (Xalatan) 1 drop QHS RIGHT EYE 07/31/18 21:00 08/30/18 20:59 07/31/18 22:48 Lidocaine HCl (Xylocaine 1% 30ml) 30 ml ONCE PRN INJ picc line placement 07/30/18 19:30 08/01/18 19:29 Metronidazole 100 ml @ 100 mls/hr Q8HR IVPB 07/27/18 22:00 08/02/18 14:59 08/01/18 05:51 Morphine Sulfate (Morphine Sulfate) 2 mg Q4H PRN IVP Moderate Pain (Pain Scale 4-6) 07/27/18 18:49 08/02/18 18:48 07/30/18 00:36 Ondansetron HCl (Zofran) 4 mg Q6H PRN IVP Nausea & Vomiting 07/27/18 18:49 08/25/18 18:48 Pantoprazole (Protonix) 40 mg DAILY ORAL 07/28/18 09:00 08/27/18 08:59 08/01/18 08:05 Patient Own Medication (Patient's Own Med) 1 ea BID OPHTHALM 07/31/18 18:30 08/30/18 18:29 UNV Phenazopyridine HCl (Pyridium) 100 mg DAILYPRN PRN ORAL dysuria 07/27/18 18:50 08/26/18 18:49 Polyethylene Glycol (Miralax) 17 gm DAILYPRN PRN ORAL Constipation 07/27/18 18:50 08/26/18 18:49 Temazepam (Restoril) 15 mg HSPRN PRN ORAL Insomnia 07/27/18 21:00 08/03/18 20:59 Tobramycin/ Dexamethasone (Tobradex Opth Susp) 1 drop TID LEFT EYE 08/01/18 09:00 08/31/18 08:59 08/01/18 12:33 Kirsten Leonard MD August 01, 2018 13:37
--- NOTE | 2018-08-01 15:00 | Nephrology Progress Note ---
Assessment/Plan Problem List: (1) Hyponatremia (2) Hypoalbuminemia (3) History of hypertension (4) Anemia (5) Intractable nausea and vomiting (6) Mass of multiple sites of liver (7) Liver abscess Assessment Leukocytosis persists Proteinuria and HypoAlbuminemia: Etiology ? HypoNatremia , likely depletional Liver disease, Mass, Abcess... other conditions: (1) Intractable nausea and vomiting, abdominal pain , diarrhea (2) Sepsis, leukocytosis (3) Anemia (4) History of hypertension (5) UTI (urinary tract infection) Plan stable from renal stand GI fofana urine studies Anemia fofana monitor renal parameters and LFTs Keep BP in check CT: Multifocal liver hypodensities suspicious for abscess. Differential diagnosis includes metastatic neoplasm. Portal vein thrombosis. 3 cm hypodensity in the spleen nonspecific. This could be a mass or abscess. Left renal cysts. Minimal free fluid. Diverticulosis of the colon. Posterior basilar atelectasis versus pneumonia. Subjective ROS Limited/Unobtainable: No Constitutional: Reports: malaise, weakness Objective Objective Last 24 Hour Vital Signs Date Time Temp Pulse Resp B/P (MAP) Pulse Ox O2 Delivery O2 Flow Rate FiO2 08/01/18 12:48 Nasal Cannula 3.0 32 08/01/18 12:48 84 20 Nasal Cannula 3.0 32 08/01/18 12:48 97 Nasal Cannula 3.0 32 08/01/18 12:00 97.5 94 20 143/71 (95) 100 08/01/18 09:00 Nasal Cannula 2.0 08/01/18 08:00 96.8 93 22 141/78 (99) 98 08/01/18 04:00 97.5 83 18 132/75 (94) 100 08/01/18 00:00 100.0 94 18 124/73 (90) 100 07/31/18 21:00 Nasal Cannula 2.0 07/31/18 20:00 96.5 91 18 126/63 (84) 99 07/31/18 16:00 98.6 95 21 145/78 (100) 100 Intake and Output 07/31/18 08/01/18 18:59 06:59 Intake Total 1560 ml 650 ml Balance 1560 ml 650 ml Intake Oral 900 ml IV Total 660 ml 650 ml # Voids 9 3 # Bowel Movements 9 3 Laboratory Tests 08/01/18 06:00: White Blood Count 18.3H, Red Blood Count 3.10L, Hemoglobin 8.6L, Hematocrit 26.1L, Mean Corpuscular Volume 84, Mean Corpuscular Hemoglobin 27.8, Mean Corpuscular Hemoglobin Concent 33.1, Red Cell Distribution Width 13.1, Platelet Count 549H, Mean Platelet Volume 5.5L, Neutrophils (%) (Auto) , Lymphocytes (%) (Auto) , Monocytes (%) (Auto) , Eosinophils (%) (Auto) , Basophils (%) (Auto) , Differential Total Cells Counted 100, Neutrophils % (Manual) 87H, Lymphocytes % (Manual) 9L, Monocytes % (Manual) 4, Eosinophils % (Manual) 0, Basophils % ( Manual) 0, Band Neutrophils 0, Platelet Estimate IncreasedH, Platelet Morphology Normal, Hypochromasia 1+, Sodium Level 137, Potassium Level 4.5, Chloride Level 106, Carbon Dioxide Level 24, Anion Gap 7, Blood Urea Nitrogen 6L , Creatinine 0.8, Estimat Glomerular Filtration Rate > 60, Glucose Level 103, Calcium Level 7.7L Height (Feet): 5 Height (Inches): 6.00 Weight (Pounds): 202 General Appearance: no apparent distress Cardiovascular: normal rate Respiratory/Chest: decreased breath sounds Abdomen: distended Objective no change Luis E Deng MD August 01, 2018 15:00
[2018-08-01 16:00] VITALS: BP 117/78
--- NOTE | 2018-08-01 16:28 | Infectious Diseases Prog Note ---
Assessment/Plan Assessment/Plan Assessment: Sepsis-, Sp Liver abscess now bacteremic -07.30 sp sp drainage of liver abscess Cx: P ( Gram stain: GNR ) -07/26 Bcx 04/06 Bacteroids -CT abd/p w/ : Multifocal liver hypodensities suspicious for abscess. Please correlate clinically. Differential diagnosis includes metastatic neoplasm. Portal vein thrombosis. 3 cm hypodensity in the spleen nonspecific. This could be a mass or abscess. Left renal cysts. Minimal free fluid. Diverticulosis of the colon.Posterior basilar atelectasis versus pneumonia.Gallbladder is contracted. -CT abd/p wo: Limited assessment of the GI tract, due to lack of enteric contrast administration. Trace free intraperitoneal fluid in the pelvis. No acute abdominal process otherwise Trace bilateral pleural effusions. Nonspecific mild thickening of Gerota's fascia. Multiple faint and ill-defined liver masses, not well demonstrated due to lack of IV contrast administration. These mostly appear to be demonstrate fluid attenuation, but are not well enough demonstrated to state for certain. Further evaluation with contrast CT if not contraindicated and ultrasound recommended Bulky pancreatic head, without definite discrete mass. Likewise, further evaluation with contrast CT would be useful to evaluate for possible underlying mass. Gallbladder is nondistended, but this wall appears somewhat edematous. Consider further evaluation with ultrasound if there is clinical suspicion for acute cholecystitis or gallstone disease -u/a wbc 0-2, nit neg, leuk +1 Low grade fever; Sp Leukocytosis; improving -CXR: Retrocardiac atelectasis. No acute process otherwise Portal Hypertension w/ esophageal varices POrtal vein thrombosis -07/27 SP EGD/COlo: 1. Esophageal varices, grade 2 four columns. 2. Portal hypertensive gastropathy. 3. Multiple gastric erosions and 1 gastric ulceration. 4. Duodenal atrophy. 5. Internal and external hemorrhoids. 6. Diverticulosis. 7. Two colonic polyps, removed, see above for details. Elevated LFTs; improving -Abd US: Portal vein thrombosis with cavernous transformation.Abnormal liver. Please refer to the CT report.Poor evaluation of the spleen not well seen on this examination.Marked wall thickening of the gallbladder.Left renal cyst -acute hep panel, HIV ab sc neg HTN arthritis Plan: -Continue Cefepime # 7 and add Flagyl # 7 ( total duration 6 wks for liver abscess) -07/26 SP IV Vancomycin #1, Zosyn x1 - Repeat 2 sets Bcx - Abscess Cx cultures (AFB, Fungal, bacterial) -Monitor CBC/CMP, temperatures -aspiration precautions -GI f/u Subjective Allergies: Coded Allergies: No Known Allergies (Unverified , 07/26/18) Subjective low grade fever Objective Vital Signs Last 24 Hour Vital Signs Date Time Temp Pulse Resp B/P (MAP) Pulse Ox O2 Delivery O2 Flow Rate FiO2 08/01/18 12:48 Nasal Cannula 3.0 32 08/01/18 12:48 84 20 Nasal Cannula 3.0 32 08/01/18 12:48 97 Nasal Cannula 3.0 32 08/01/18 12:00 97.5 94 20 143/71 (95) 100 08/01/18 09:00 Nasal Cannula 2.0 08/01/18 08:00 96.8 93 22 141/78 (99) 98 08/01/18 04:00 97.5 83 18 132/75 (94) 100 08/01/18 00:00 100.0 94 18 124/73 (90) 100 07/31/18 21:00 Nasal Cannula 2.0 07/31/18 20:00 96.5 91 18 126/63 (84) 99 Height (Feet): 5 Height (Inches): 6.00 Weight (Pounds): 202 HEENT: anicteric Respiratory/Chest: no respiratory distress Cardiovascular: normal rate Abdomen: no organomegaly Microbiology Date/Time Source Procedure Growth Status 07/30/18 11:55 Body Fluid AFB Specimen Processing Tissue - Final Resulted 07/30/18 11:55 Body Fluid Acid Fast Bacilli Smear - Final Resulted 07/30/18 11:55 Body Fluid Acid Fast Bacilli Culture Pending Resulted 07/30/18 11:00 Stool Stool Culture - Preliminary NO SALMONELLA,SHIGELLA OR CAMPYLOBACT... Resulted 07/30/18 11:55 Abdominal Abscess Gram Stain - Final Resulted 07/30/18 11:55 Abdominal Abscess Aerobic Culture Pending Resulted 07/30/18 11:55 Abdominal Abscess Anaerobic Culture - Preliminary NO GROWTH AFTER 24 HOURS Resulted Laboratory Tests Test 08/01/18 06:00 White Blood Count 18.3 K/UL (4.8-10.8) H Red Blood Count 3.10 M/UL (4.20-5.40) L Hemoglobin 8.6 G/DL (12.0-16.0) L Hematocrit 26.1 % (37.0-47.0) L Mean Corpuscular Volume 84 FL (80-99) Mean Corpuscular Hemoglobin 27.8 PG (27.0-31.0) Mean Corpuscular Hemoglobin Concent 33.1 G/DL (32.0-36.0) Red Cell Distribution Width 13.1 % (11.6-14.8) Platelet Count 549 K/UL (150-450) H Mean Platelet Volume 5.5 FL (6.5-10.1) L Neutrophils (%) (Auto) % (45.0-75.0) Lymphocytes (%) (Auto) % (20.0-45.0) Monocytes (%) (Auto) % (1.0-10.0) Eosinophils (%) (Auto) % (0.0-3.0) Basophils (%) (Auto) % (0.0-2.0) Differential Total Cells Counted 100 Neutrophils % (Manual) 87 % (45-75) H Lymphocytes % (Manual) 9 % (20-45) L Monocytes % (Manual) 4 % (1-10) Eosinophils % (Manual) 0 % (0-3) Basophils % (Manual) 0 % (0-2) Band Neutrophils 0 % (0-8) Platelet Estimate Increased H Platelet Morphology Normal Hypochromasia 1+ Sodium Level 137 MMOL/L (136-145) Potassium Level 4.5 MMOL/L (3.5-5.1) Chloride Level 106 MMOL/L (98-107) Carbon Dioxide Level 24 MMOL/L (21-32) Anion Gap 7 mmol/L (5-15) Blood Urea Nitrogen 6 mg/dL (7-18) L Creatinine 0.8 MG/DL (0.55-1.30) Estimat Glomerular Filtration Rate > 60 mL/min (>60) Glucose Level 103 MG/DL (74-106) Calcium Level 7.7 MG/DL (8.5-10.1) L Current Medications Medications (Trade) Dose Ordered Sig/Jose Route PRN Reason Start Time Stop Time Status Last Admin Dose Admin Acetaminophen (Tylenol) 650 mg Q4H PRN ORAL T>100.5 OR Mild Pain 07/31/18 10:49 08/25/18 18:48 08/01/18 02:37 Cefepime HCl 2 gm/ Dextrose 110 ml @ 220 mls/hr Q24H IV 07/28/18 12:00 08/06/18 11:59 08/01/18 12:33 Chlorhexidine Gluconate (Maria Guadalupe-Hex 2%) 1 applic DAILY@2000 TOPIC 07/30/18 20:00 08/29/18 19:59 07/31/18 22:48 Dextrose/Sodium Chloride 1,000 ml @ 50 mls/hr Q20H IV 07/27/18 20:00 08/26/18 19:59 08/01/18 00:50 Heparin Sodium (Porcine) (Heparin 5000 units/ml) 5,000 units EVERY 12 HOURS SUBQ 07/27/18 21:00 08/25/18 20:59 08/01/18 08:13 Heparin Sodium/ Sodium Chloride (Heparin 1000 units/500ml Premix) 1,000 unit ONCE PRN IV picc line placement 07/30/18 19:30 08/01/18 19:29 Latanoprost (Xalatan) 1 drop QHS RIGHT EYE 07/31/18 21:00 08/30/18 20:59 07/31/18 22:48 Lidocaine HCl (Xylocaine 1% 30ml) 30 ml ONCE PRN INJ picc line placement 07/30/18 19:30 08/01/18 19:29 Metronidazole 100 ml @ 100 mls/hr Q8HR IVPB 07/27/18 22:00 08/06/18 21:59 08/01/18 14:57 Morphine Sulfate (Morphine Sulfate) 2 mg Q4H PRN IVP Moderate Pain (Pain Scale 4-6) 07/27/18 18:49 08/02/18 18:48 07/30/18 00:36 Ondansetron HCl (Zofran) 4 mg Q6H PRN IVP Nausea & Vomiting 07/27/18 18:49 08/25/18 18:48 Pantoprazole (Protonix) 40 mg DAILY ORAL 07/28/18 09:00 08/27/18 08:59 08/01/18 08:05 Patient Own Medication (Patient's Own Med) 1 ea BID OPHTHALM 07/31/18 18:30 08/30/18 18:29 UNV Phenazopyridine HCl (Pyridium) 100 mg DAILYPRN PRN ORAL dysuria 07/27/18 18:50 08/26/18 18:49 Polyethylene Glycol (Miralax) 17 gm DAILYPRN PRN ORAL Constipation 07/27/18 18:50 08/26/18 18:49 Temazepam (Restoril) 15 mg HSPRN PRN ORAL Insomnia 07/27/18 21:00 08/03/18 20:59 Tobramycin/ Dexamethasone (Tobradex Opth Susp) 1 drop TID LEFT EYE 08/01/18 09:00 08/31/18 08:59 08/01/18 12:33 Billy Mackey MD August 01, 2018 16:28
--- NOTE | 2018-08-01 17:47 | NUR ---
DISCHARGE PLANNED PT DC TO REHAB ON [facility] [address] [facility] SKILLED FOR NURSE TO NURSE REPORT [facility] WILL NET DEVELOPER WITH [facility]
[2018-08-01] MEDS ORDERED: CEFEPIME 22 GM/100 M IV (17:49)
[2018-08-01] MEDS ORDERED: flagyl IV (17:49)
--- NOTE | 2018-08-01 18:33 | NUR ---
NURSE NOTES: PT MADE A[facility]. PT AGREES WITH DISCHARGE. REPORT GIVEN TO YONATHAN ROBERTS AT [facility]. MADE AWARE OF FLAGYL AND CEFEPIME IV ORDERS. MADE AWARE PT HAS PICC LINE PLACED YESTERDAY WITH DRESSING CHANGED TODAY. [facility] ETA 1930HRS.
--- NOTE | 2018-08-01 19:20 | NUR ---
NURSE NOTES: PT MADE AWARE OF DISCHARGE AND AGREES TO DISCHARGE, BUT WANTS TO LEAVE TOMORROW. PT STATES SHE IS TOO FATIGUED AND HASN'T FINISHED EATING. PT AGREED TO BE DISCHARGED AT 10:00PM AND [facility] MADE AWARE FOR CANE FLUME WATCHER AT 2200HRS. BELONGINGS CHECKED AT BEDSIDE. BELONGINGS FORM NOT FOUND IN CHART. PT HAS 1 TOP, 1 PANT, 1 PAIR FLIP FLOP, 1 CELLPHONE, 1 TAB MACHINE OPERATOR, 1 PACK OF PULL-UPS, 3 EYEDROP MEDICATIONS. BELONGINGS VERIFIED WITH FERNIE Chen RN. JULIO PICC LINE ASYMPTOMATIC AND INTACT. REPORT GIVEN TO ALEJANDRA MCMANUS, AT [facility]. PT REQUESTED WE CONTACT HER BROTHER, BUT NO CANE FLUME WATCHER AND NO OPTION FOR VOICEMAIL. PT MADE AWARE.
--- NOTE | 2018-08-01 19:50 | NUR ---
NURSE NOTES: Received pt from [facility]. Pt awake and resting in no acute distress. PICC line patent. Bed in lowest position with call light within reach. Will continue with plan of care.
[2018-08-01 20:00] VITALS: BP 132/78
--- NOTE | 2018-08-01 20:13 | NUR ---
HAND-OFF: Report given to FERNIE Chen RN.
[2018-08-01] MEDS: Dyna-Hex 2% Top Sol 2oz TOPIC SCH (20:36)
[2018-08-01] MEDS: Latanoprost 0.005% Opth 2.5ml Soln RIGHT EYE SCH (20:43)
[2018-08-01] MEDS ORDERED: D5NS 1000ml IV ONE (22:19)
[2018-08-01] MEDS ORDERED: Tubing IV Secondary IV ONE (22:19)
[2018-08-02] MEDS ORDERED: RHOPRESSA OPHTHALM SCH (09:00)
--- NOTE | 2018-08-02 10:35 | Pre-Procedure Note/Attestation ---
Pre-Procedure Note/Attestation Complete Prior to Procedure Planned Procedure: not applicable Procedure Narrative: esophagogastroduodenoscopy and colonoscopy Indications for Procedure Pre-Operative Diagnosis: anemia Attestation I attest that I discussed the nature of the procedure; its benefits; risks and complications; and alternatives (and the risks and benefits of such alternatives ), prior to the procedure, with the patient (or the patient's legal novelties sales representative). I attest that, if there was a reasonable possibility of needing a blood transfusion, the patient (or the patient's legal novelties sales representative) was given the [facility] standardized written summary, pursuant to the [place] Blood Safety Act ([place] Health and Safety Code # 1645, as amended). I attest that I re-evaluated the patient just prior to the surgery and that there has been no change in the patient's H&P, except as documented below: Sixto Conner MD August 02, 2018 10:35
--- NOTE | 2018-08-02 14:18 | Discharge Summary ---
Discharge Summary Discharge Summary _ DATE OF ADMISSION: 07/26/2018 DATE OF DISCHARGE: 08/01/2018 CONSULTANTS: Dr. Kirsten Mackey [facility]: Patient is a 68-year-old -Iranian female, who presented with chief complaint of nausea, vomiting, diarrhea and abdominal pain. Symptoms started . The patient began to experience nausea. She had some vomiting. She also had diarrhea. She had bilateral upper quadrant abdominal pain. Pain then centered to the left side. She also had generalized weakness and subjective fever and chills. She then presented to ED for evaluation of abdominal pain. On evaluation at the ED, pulse rate was 116, blood pressure was 155/78. Blood work showed WBC of 17. Sodium was 131, chloride 97. LFTs were elevated. Urinalysis with 1+ leukocyte esterase, negative nitrite, 2+ protein, 0-2 RBC and 0-[address] of the abdomen and pelvis without contrast showed faint and ill- defined liver mass; bulky pancreatic head without definite discrete mass gallbladder nondistended but appeared somewhat edematous. Abdominal ultrasound showed gallbladder with marked wall thickening. Doppler evaluation of the main portal vein showed thrombosis with cavernous transformation. She was then admitted for evaluation of nausea, vomiting, diarrhea and abdominal pain. Patient was started empirically on IV vancomycin. She had low-grade fever and leukocytosis. ID was consulted for evaluation of sepsis. Vancomycin was discontinued. She was given cefepime and Flagyl. She was placed on n.p.o. She was given IV fluids. GI was consulted. Patient had CT scan findings of fullness on the head of the pancreas. Tumor markers CA 199 and CEA was checked. Patient did not have any prior history of endoscopy and colonoscopy. On 07/27/2018, she underwent EGD with colonoscopy. Findings showed esophageal varices, grade 2 four columns; portal hypertensive gastropathy, multiple gastric erosions and gastric ulceration; duodenal atrophy; internal and external hemorrhoids; diverticulosis and 2 colonic polyps which were removed. Blood culture showed growth of Bacteroides. Repeat blood culture did not isolate any growth x2. Tool Design Drafter was consulted. Patient had proteinuria and hypoalbuminemia. She was noted to have hyponatremia, likely depletional. CT of the abdomen and pelvis with contrast showed multifocal liver hypodensities suspicious for abscess. Portal vein thrombosis. 3 cm hypodensity in the spleen not specific. On 07/30/2018, she underwent ultrasound-guided aspiration of the left lobe abscess on the liver. Drainage could not be performed. Attempt at guidewire passage was unsuccessful. Biopsy was also obtained. Specimen was sent to lab for cultures and pathology. Abscess culture was showing growth of gram-negative rods. Anaerobic culture did not isolate any growth. AFB and aerobic cultures are still pending. Patient was cleared for discharge to complete 6 weeks of antibiotics. FINAL DIAGNOSES: Sepsis Liver abscess Portal hypertension with esophageal varices Portal vein thrombosis Elevated LFTs Status post EGD and colonoscopy on 07/27/2018 Portal hypertensive gastropathy Gastric ulceration Duodenal atrophy Internal and external hemorrhoids Diverticulosis 2 colonic polyp status post removal Status post drainage of liver abscess on 07/30/2018 Hypertension Arthritis Hyponatremia, likely depletional Hypoalbuminemia Anemia Liver abscess Proteinuria Urinary tract infection Nausea, vomiting and diarrhea DISPOSITION: Patient was discharged to a SNF. DISCHARGE MEDICATIONS: Refer to Discharge Medication List. I have been assigned to complete a discharge summary on this account, I was not involved with the patient's management. Michelle Barr NP August 02, 2018 14:18
== END 2018-08-01 22:20 | DRG 871 ==
LOC: EDBD 05:43 → EMR 05:54 → EDBEDREQ 06:15 → 2E 06:23 → EDBEDREQ 06:39 → 4E 07-27 19:33
PROC: 0DB68ZX Excision of Stomach, Via Natural or Artificial Opening Endoscopic, Diagnostic (ICD-10-PCS; principal; 2018-07-27 09:33)
PROC: 0DBL8ZZ Excision of Transverse Colon, Via Natural or Artificial Opening Endoscopic (ICD-10-PCS; principal; 2018-07-27 09:33)
PROC: 0DB78ZX Excision of Stomach, Pylorus, Via Natural or Artificial Opening Endoscopic, Diagnostic (ICD-10-PCS; principal; 2018-07-27 09:33)
PROC: 0DB98ZX Excision of Duodenum, Via Natural or Artificial Opening Endoscopic, Diagnostic (ICD-10-PCS; principal; 2018-07-27 09:33)
PROC: 0F923ZX Drainage of Left Lobe Liver, Percutaneous Approach, Diagnostic (ICD-10-PCS; 2018-07-30)
PROC: 02HV33Z Insertion of Infusion Device into Superior Vena Cava, Percutaneous Approach (ICD-10-PCS; 2018-07-31)
DX: A41.9 Sepsis, unspecified organism (principal); K75.0 Abscess of liver; I81 Portal vein thrombosis; N39.0 Urinary tract infection, site not specified; K76.6 Portal hypertension; I85.10 Secondary esophageal varices without bleeding; E87.1 Hypo-osmolality and hyponatremia; R79.89 Other specified abnormal findings of blood chemistry; K31.89 Other diseases of stomach and duodenum; K25.9 Gastric ulcer, unspecified as acute or chronic, without hemorrhage or perforation; K64.8 Other hemorrhoids; K64.4 Residual hemorrhoidal skin tags; K57.90 Diverticulosis of intestine, part unspecified, without perforation or abscess without bleeding; I10 Essential (primary) hypertension; M19.90 Unspecified osteoarthritis, unspecified site; E88.09 Other disorders of plasma-protein metabolism, not elsewhere classified; R11.2 Nausea with vomiting, unspecified; R19.7 Diarrhea, unspecified; D50.9 Iron deficiency anemia, unspecified; K63.5 Polyp of colon
CPT/HCPCS: 36415; 36569; 71045; 74176; 74177; 76700; 76937; 76942; 80048; 80053; 80061; 81001; 81003; 82105; 82140; 82248; 82270; 82378; 82607; 82728; 82746; 82977; 83036; 83540; 83550; 83690; 83735; 83880; 84100; 84300; 84439; 84443; 84550; 85007; 85025; 85610; 85651; 86140; 86703; 86705; 86709; 86753; 86803; 87040; 87045; 87070; 87075; 87086; 87116; 87181; 87205; 87340; 93005; 94003; 94150; 94664; 94760; 96361; 96365; 96366; 96375; 99285; J2250; J2405

== ENCOUNTER 2018-10-03 13:50 | Outpatient (CLI) | payer MEDICARE, MEDICAID ==
[~2018-10-03 13:50] MED LIST: AKTOB1 DROP BOTH EYES; BENAZEPRIL HCL5 MG ORAL; CEFEPIME 22 GM/100 M IV; [UNRECOGNIZED DRUG - OTHER]; flagyl IV
--- NOTE | 2018-10-03 14:42 | General Progress Note ---
Assessment/Plan Problem List: (1) Abdominal pain ICD Codes: R10.9 - Unspecified abdominal pain SNOMED: 35575158 (2) Portal vein thrombosis ICD Codes: I81 - Portal vein thrombosis SNOMED: 97911023 (3) Iron deficiency anemia ICD Codes: D50.9 - Iron deficiency anemia, unspecified SNOMED: 06283680 (4) Diverticulosis ICD Codes: K57.90 - Diverticulosis of intestine, part unspecified, without perforation or abscess without bleeding SNOMED: 467816200 (5) Anemia ICD Codes: D64.9 - Anemia, unspecified SNOMED: 708928249 (6) Liver abscess ICD Codes: K75.0 - Abscess of liver SNOMED: 74211320 Assessment/Plan: BT for HP repeat CT fu for abscess Subjective ROS Limited/Unobtainable: Yes Allergies: Coded Allergies: No Known Allergies (Unverified , 07/26/18) Objective General Appearance: alert EENT: normal ENT inspection Neck: normal alignment Cardiovascular: normal rate Respiratory/Chest: decreased breath sounds Abdomen: normal bowel sounds, non tender, soft Extremities: non-tender Sixto Conner MD Oct 03, 2018 14:42
[2018-10-03 16:03] VITALS: BP 150/94
== END 2018-10-03 15:50 | disposition home or self-care (01) ==
LOC: PAN 13:50
DX: R10.9 Unspecified abdominal pain (principal); I81 Portal vein thrombosis; D50.9 Iron deficiency anemia, unspecified; K57.90 Diverticulosis of intestine, part unspecified, without perforation or abscess without bleeding; D64.9 Anemia, unspecified; K75.0 Abscess of liver
CPT/HCPCS: 83013; 83014; G0463; 99202

== ENCOUNTER 2018-10-11 10:25 | Outpatient (CLI) | payer MEDICARE, MEDICAID ==
[2018-10-11 10:52] LABS: BASOPHILS % (AUTO) 2.4 % (0.0-2.0); EOSINOPHILS % (AUTO) 2.7 % (0.0-3.0); HEMATOCRIT 46.5 % (37.0-47.0); HEMOGLOBIN 14.9 G/DL (12.0-16.0); LYMPHOCYTES % (AUTO) 31.8 % (20.0-45.0); MEAN CORPUSCULAR VOLUME 91 FL (80-99); MONOCYTES % (AUTO) 9.4 % (1.0-10.0); NEUTROPHILS % (AUTO) 53.8 % (45.0-75.0); PLATELET COUNT 284 K/UL (150-450); RED BLOOD COUNT 5.13 M/UL (4.20-5.40); RED CELL DISTRIBUTION WIDTH 14.4 % (11.6-14.8); WHITE BLOOD COUNT 5.5 K/UL (4.8-10.8)
[2018-10-11 11:04] LABS: ALANINE AMINOTRANSFERASE 65 U/L (12-78); ALBUMIN 3.7 G/DL (3.4-5.0); ALBUMIN/GLOBULIN RATIO 0.9 (1.0-2.7); ALKALINE PHOSPHATASE 346 U/L (46-116); ANION GAP 6 mmol/L (5-15); ASPARTATE AMINO TRANSFERASE 56 U/L (15-37); BILIRUBIN,TOTAL 0.5 MG/DL (0.2-1.0); BLOOD UREA NITROGEN 14 mg/dL (7-18); CALCIUM 9.7 MG/DL (8.5-10.1); CARBON DIOXIDE 30 MMOL/L (21-32); CHLORIDE 106 MMOL/L (98-107); POTASSIUM 3.9 MMOL/L (3.5-5.1); SODIUM 142 MMOL/L (136-145)
--- NOTE | 2018-10-11 16:10 | Diagnostic Imaging Report ---
Indication: History of liver abscess. Follow-up. Abdominal pain Technique: Continuous helical transaxial imaging of the abdomen and pelvis was obtained from the lung bases to the pubic symphysis during intravenous contrast administration. Coronal 2-D reformats were also obtained. Study obtained in a Siemens sensation [address] Automatic Exposure Control was utilized. Total Dose length Product (DLP): 781.[address] Dose Index Volume (CTDIvol): 16.58 mGy Comparison: 07/26/2018 Findings: Area is of a nodular low attenuation involving portions of both right and left lobes of the liver have largely resolved since the last examination though there are still some areas present. No compelling evidence for liver abscess at this time. The prior exam also showed acute portal vein thrombosis with enlargement of the portal vein due to thrombus extending into both lobes of the liver. The areas of nodular low attenuation within the liver or at the terminus of the thrombosed portal vein branches. The current exam shows interval contraction of the thrombosed portal vein and its branches within the liver. The beginnings of what appears to be cavernous transformation are noted with multiple tiny serpiginous enhancing vessels within the tariq hepatis. There is some thickening of the wall the gallbladder. The spleen is prominent size. There is a low-attenuation focus in the spleen again noted. Prominent left renal cyst demonstrated. There is no ascites. Bowel gas pattern remains nonobstructive. Diverticula noted within the colon. Lung bases are clear. IMPRESSION: Significant interval improvement with no definite liver abscess identified at this time. Multifocal abscesses noted throughout the liver on the last CT examination from 07/26/2018. Contraction of the main portal vein and portal venous branches due to previous portal vein thrombosis. Cavernous transformation now noted. Diverticulosis of the colon. Renal cysts Splenic hypodense lesion unchanged. The CT scanner at [facility] is accredited by the [employer] and the scans are performed using dose optimization techniques as appropriate to a performed exam including Automatic Exposure control.
== END 2018-10-11 12:25 | disposition home or self-care (01) ==
LOC: CAT 10:25
DX: K75.0 Abscess of liver (principal); N28.1 Cyst of kidney, acquired; K57.90 Diverticulosis of intestine, part unspecified, without perforation or abscess without bleeding
CPT/HCPCS: 36415; 74177; 80053; 85025; Q9967

== ENCOUNTER 2018-10-15 13:18 | Outpatient (CLI) | payer MEDICARE, MEDICAID ==
--- NOTE | 2018-10-15 13:57 | General Progress Note ---
Assessment/Plan Problem List: (1) Gastric erosion ICD Codes: K25.9 - Gastric ulcer, unspecified as acute or chronic, without hemorrhage or perforation SNOMED: 623538064 (2) Esophageal varices ICD Codes: I85.00 - Esophageal varices without bleeding SNOMED: 76895811 (3) Portal vein thrombosis ICD Codes: I81 - Portal vein thrombosis SNOMED: 80718149 (4) Abdominal pain ICD Codes: R10.9 - Unspecified abdominal pain SNOMED: 83101962 (5) Iron deficiency anemia ICD Codes: D50.9 - Iron deficiency anemia, unspecified SNOMED: 62270720 (6) Diverticulosis ICD Codes: K57.90 - Diverticulosis of intestine, part unspecified, without perforation or abscess without bleeding SNOMED: 329678469 Assessment/Plan: neg breth test recent CT reviewed needs EGD next year for esoph varices fu repeat colon in 5 years Subjective ROS Limited/Unobtainable: Yes Allergies: Coded Allergies: No Known Allergies (Unverified , 07/26/18) Objective General Appearance: alert EENT: normal ENT inspection Neck: supple Cardiovascular: normal rate Respiratory/Chest: decreased breath sounds Abdomen: normal bowel sounds, non tender, soft Extremities: non-tender Sixto Conner MD Oct 15, 2018 13:57
[2018-10-15 15:15] VITALS: BP 150/90
== END 2018-10-15 16:00 | disposition home or self-care (01) ==
LOC: PAN 13:18
DX: K25.9 Gastric ulcer, unspecified as acute or chronic, without hemorrhage or perforation (principal); I85.00 Esophageal varices without bleeding; I81 Portal vein thrombosis; R10.9 Unspecified abdominal pain; D50.9 Iron deficiency anemia, unspecified; K57.90 Diverticulosis of intestine, part unspecified, without perforation or abscess without bleeding
CPT/HCPCS: 99212

== ENCOUNTER → 2018-11-14 | Outpatient (CLI) | payer MEDICARE, MEDICAID ==
--- NOTE | 2018-11-14 12:34 | Diagnostic Imaging Report ---
Indication: Cough Comparison: 07/30/2018 2 views of the chest obtained. Findings: No definite infiltrate or pulmonary vascular congestion identified. The heart is normal size. The aorta is moderately ectatic consistent with atherosclerotic vascular disease. Vertebral endplate osteophytes noted throughout the thoracic spine.. Impression: No acute disease
== END | disposition home or self-care (01) ==
LOC: RAD 11:14
DX: Z01.818 Encounter for other preprocedural examination (principal); R05 Cough
CPT/HCPCS: 71046

== ENCOUNTER → 2018-11-19 | Outpatient (CLI) | payer MEDICARE, MEDICAID ==
--- NOTE | 2018-11-19 15:05 | Diagnostic Imaging Report ---
Indication: Abnormal liver function tests Technique: Saez-scale and duplex images of the upper abdomen were obtained Comparison: 07/26/2018; also CT scan 10/11/2018 Findings: Gallbladder is unremarkable, without stones, wall thickening, nor pericholecystic fluid. Sonographic Wong's sign is negative. Common bile duct measures to mm in diameter. No intrahepatic biliary ductal dilatation. Liver demonstrates normal echogenicity and no evidence of surface nodularity. No focal abnormality currently. The hypoechoic foci previously demonstrated are not evident currently.. It is borderline enlarged. Again demonstrated is evidence of portal venous occlusion with cavernous transformation. The main portal vein has decreased considerably in caliber since the prior study Pancreas is unremarkable. Previously demonstrated echogenic focus is no longer evident. The spleen is nonenlarged. Left kidney measures 10.3 cm in length. Right kidney measures 9.5 cm length. Both kidneys demonstrate normal echogenicity. There is no hydronephrosis. A cyst is again demonstrated coming off of the upper pole of the left kidney . Non-aneurysmal abdominal aorta . 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 Note decreased caliber of the occluded main portal vein since prior exam, likely indicating scarring Noted previously demonstrated splenic and hepatic parenchymal abnormalities are no longer evident. Left renal cyst incidentally noted
== END | disposition home or self-care (01) ==
LOC: ULS 10:23
DX: R94.5 Abnormal results of liver function studies (principal); R10.9 Unspecified abdominal pain; N20.0 Calculus of kidney
CPT/HCPCS: 76700